=== PATIENT | male | born 1960 | race Caucasian/White ===

== ENCOUNTER 2019-05-10 17:23 | Outpatient (CLI) | payer OTHER, SELFPAY ==
--- NOTE | ~2019-05-10 | XR_ITS ---
EXAMINATION: XR abdomen/kub 1V DATE: 05/10/2019 17:40 INDICATION: Ureteral stone. TECHNIQUE: A supine view of the abdomen on 2 radiographs was obtained. COMPARISON: CT abdomen and pelvis 07/11/2018, abdomen radiographs 07/11/2018 FINDINGS: There are no dilated loops of bowel. There is a 2 mm calcification in the area of right ure terovesicular junction. IMPRESSION: 1. 2 mm calcification in the area of right ureterovesicular junction that may be a phlebolith or ston e. Reviewed, dictated and finalized at location A. IMPRESSION: 1. 2 mm calcification in the area of right ureterovesicular junction that may b e a phlebolith or stone.
== END 2019-05-10 17:24 | disposition home or self-care (01) ==
PROVIDERS: Visit Provider Urology
DX: N20.1 Calculus of ureter (principal)
CPT/HCPCS: 74018

== ENCOUNTER 2019-05-17 15:37 | Outpatient (CLI) | payer OTHER, SELFPAY ==
[2019-05-17 16:03] LABS: Basophils Absolute Auto 0.1 K/mm3 (0.0-0.1); Basophils Percent Auto 0.9 % (0.2-1.2); Eosinophils Absolute Auto 0.2 K/mm3 (0-0.3); Eosinophils Percent Auto 2.2 % (0-4.4); Hematocrit 44.3 % (42.0-52.0); Immature Granulocyte Absolute 0.01 K/mm3 (0.00-0.031); Immature Granulocyte Percent A 0.1 % (0-0.5); Lymphocytes Absolute Auto 3.07 K/mm3 (0.9-3.2); Lymphocytes Percent Auto 44.1 % (18.3-44.2); Mean Corpuscular HGB Conc 33.9 g/dl (32-36); Mean Corpuscular Volume 94.5 fl (80-100); Mean Platelet Volume 9.2 fl (7.4-10.4); Monocytes Absolute Auto 0.5 K/mm3 (0.1-0.6); Monocytes Percent Auto 7.5 % (2.6-8.5); Neutrophils Absolute Auto 3.2 K/mm3 (1.3-6.7); Neutrophils Percent Auto 45.2 % (45.5-73.1); Platelet Count Result 172 k/mm3 (150-375); Red Blood Count 4.69 M/mm3 (4.6-6.20); Red Cell Distribution Width 12.9 % (11.5-14.5)
[2019-05-17 16:26] LABS: Erythrocyte Sedimentation Rate 8 mm/hr (0-20)
[2019-05-17 16:32] LABS: Alanine Aminotransferase 28 U/L (4-50); Albumin Level 4.7 g/dL (3.5-5.1); Alkaline Phosphatase 71 U/L (38-126); Aspartate Amino Transferase 29 U/L (17-59); Bilirubin,Total 0.3 mg/dL (0.2-1.3); Blood Urea Nitrogen 15 mg/dL (9-20); CRP < 0.5 mg/dL (<1.0); Calcium 8.7 mg/dL (8.4-10.2); Carbon Dioxide 27 mmol/L (22-30); Chloride 102 mmol/L (98-107); Estimated Glomerular Filt Rate > 60; Glucose 82 mg/dL (75-110); Potassium 4.1 mmol/L (3.4-5.0); Sodium 139 mmol/L (137-145)
== END 2019-05-17 15:38 | disposition home or self-care (01) ==
DX: L40.50 Arthropathic psoriasis, unspecified (principal)
CPT/HCPCS: 36415; 80053; 85025; 85652; 86140

== ENCOUNTER 2019-08-09 06:51 | Outpatient (CLI) | payer OTHER, SELFPAY ==
[2019-08-09 07:49] LABS: Hematocrit 45.6 % (42.0-52.0); Hemoglobin 15.6 g/dL (14.0-18.0); Mean Corpuscular HGB Conc 34.2 g/dl (32-36); Mean Corpuscular Hemoglobin 32.8 pg (26-34); Mean Corpuscular Volume 95.8 fl (80-100); Mean Platelet Volume 9.6 fl (7.4-10.4); Platelet Count Result 163 k/mm3 (150-375); Red Blood Count 4.76 M/mm3 (4.6-6.20); Red Cell Distribution Width 12.8 % (11.5-14.5); White Blood Count 6.3 K/mm3 (4.5-10.0)
[2019-08-09 07:56] LABS: Add Urine Microscopic? NO; Appearance Urine Clear (Clear); Bilirubin Urine Negative (Negative); Blood Urine Negative (Negative); Color Urine Yellow (Yellow); Glucose Urine UA Negative (Negative); Ketones Urine Negative (Negative); Leukocyte Esterase Ur Negative LEU/UL (Negative); Nitrate Urine Negative (Negative); Protein Urine Negative (Negative); Specific Grav Ur 1.014 (1.001-1.035); Urobilinogen Urine Negative mg/dL (<2.0)
[2019-08-09 08:03] LABS: Alanine Aminotransferase 28 U/L (4-50); Albumin Level 4.3 g/dL (3.5-5.1); Alkaline Phosphatase 71 U/L (38-126); Aspartate Amino Transferase 24 U/L (17-59); Bilirubin,Total 0.2 mg/dL (0.2-1.3); Blood Urea Nitrogen 19 mg/dL (9-20); Carbon Dioxide 25 mmol/L (22-30); Chloride 110 mmol/L (98-107); Cholesterol 222 mg/dL (0-200); Estimated Glomerular Filt Rate > 60; Glucose 114 mg/dL (75-110); HDL Direct 39 mg/dL; Magnesium 1.9 mg/dL (1.6-2.3); Potassium 4.2 mmol/L (3.4-5.0); Sodium 140 mmol/L (137-145); Triglycerides 457 mg/dL (<150)
[2019-08-09 08:15] LABS: LDL Cholesterol Direct 108 mg/dL
[2019-08-09 08:22] LABS: Hemoglobin A1C 5.6 % (<5.7)
[2019-08-09 08:32] LABS: Erythrocyte Sedimentation Rate 5 mm/hr (0-20)
[2019-08-09 08:35] LABS: Prostate Specific Antigen 0.6 ng/mL (< OR = 4.0)
[2019-08-09 09:08] LABS: Vitamin D 25 Hydroxy 59.8 ng/mL
[2019-08-09 09:36] LABS: Folic Acid > 20.0 ng/mL (2.76->20)
[2019-08-12 14:30] LABS: CRP, High Sensitivity 1.3 mg/L (***)
== END 2019-08-09 06:52 | disposition home or self-care (01) ==
DX: R73.03 Prediabetes (principal); E78.5 Hyperlipidemia, unspecified; R53.83 Other fatigue; E53.8 Deficiency of other specified B group vitamins; Z12.5 Encounter for screening for malignant neoplasm of prostate
CPT/HCPCS: 36415; 80053; 80061; 81003; 82306; 82607; 82746; 83036; 83735; 84153; 84443; 85027; 85652; 86141; G0103

== ENCOUNTER 2019-10-18 09:40 | Outpatient (CLI) | payer OTHER, SELFPAY ==
[2019-10-18 10:45] LABS: Basophils Absolute Auto 0.1 K/mm3 (0.0-0.1); Basophils Percent Auto 1.4 % (0.2-1.2); Eosinophils Absolute Auto 0.2 K/mm3 (0-0.3); Eosinophils Percent Auto 3.1 % (0-4.4); Hematocrit 44.8 % (42.0-52.0); Hemoglobin 15.5 g/dL (14.0-18.0); Immature Granulocyte Absolute 0.05 K/mm3 (0.00-0.031); Immature Granulocyte Percent A 0.8 % (0-0.5); Lymphocytes Absolute Auto 2.79 K/mm3 (0.9-3.2); Lymphocytes Percent Auto 43.8 % (18.3-44.2); Mean Corpuscular HGB Conc 34.6 g/dl (32-36); Mean Corpuscular Volume 95.3 fl (80-100); Monocytes Absolute Auto 0.6 K/mm3 (0.1-0.6); Monocytes Percent Auto 8.9 % (2.6-8.5); Neutrophils Absolute Auto 2.7 K/mm3 (1.3-6.7); Platelet Count Result 185 k/mm3 (150-375); Red Cell Distribution Width 12.7 % (11.5-14.5); White Blood Count 6.4 K/mm3 (4.5-10.0)
[2019-10-18 11:09] LABS: LDL Cholesterol Direct 97 mg/dL
[2019-10-18 11:10] LABS: Alanine Aminotransferase 32 U/L (4-50); Albumin Level 4.6 g/dL (3.5-5.1); Alkaline Phosphatase 57 U/L (38-126); Anion Gap 7 mmol/L (8-16); Aspartate Amino Transferase 33 U/L (17-59); Bilirubin,Total 0.5 mg/dL (0.2-1.3); Blood Urea Nitrogen 22 mg/dL (9-20); CRP < 0.5 mg/dL (<1.0); Calcium 8.4 mg/dL (8.4-10.2); Carbon Dioxide 26 mmol/L (22-30); Chloride 107 mmol/L (98-107); Cholesterol 195 mg/dL (0-200); Estimated Glomerular Filt Rate > 60; Glucose 104 mg/dL (75-110); HDL Direct 46 mg/dL; Potassium 3.9 mmol/L (3.4-5.0); Sodium 140 mmol/L (137-145); Triglycerides 310 mg/dL (<150)
[2019-10-18 11:16] LABS: Erythrocyte Sedimentation Rate 2 mm/hr (0-20)
== END 2019-10-18 09:41 | disposition home or self-care (01) ==
LOC: ANHLAB 09:48
PROVIDERS: Internal Medicine Rheumatology
DX: L40.50 Arthropathic psoriasis, unspecified (principal)
CPT/HCPCS: 36415; 80053; 80061; 85025; 85652; 86140

== ENCOUNTER 2020-02-14 13:39 | Outpatient (CLI) | payer OTHER, SELFPAY ==
--- NOTE | ~2020-02-14 | XR_ITS ---
EXAMINATION: XR chest 2V DATE: 02/14/2020 14:03 INDICATION: Psoriatic arthritis TECHNIQUE: Frontal and lateral views of the chest are obtained COMPARISON: 11/11/2016 FINDINGS: The lungs are free of acute opacities. There is no pleural effusion or pneumothorax. The ca rdiomediastinal silhouette is normal. There is moderate thoracic spondylosis. There are partially jackie ged changes of fusion at the cervicothoracic junction. IMPRESSION: 1. No acute cardiopulmonary abnormality. Reviewed, dictated and finalized at location A. [employer]
== END 2020-02-14 13:40 | disposition home or self-care (01) ==
DX: L40.50 Arthropathic psoriasis, unspecified (principal); Z79.899 Other long term (current) drug therapy
CPT/HCPCS: 71046

== ENCOUNTER 2020-04-29 10:24 | Outpatient (CLI) | payer OTHER, SELFPAY ==
[2020-04-29 10:52] LABS: Hematocrit 47.3 % (42.0-52.0); Hemoglobin 16.2 g/dL (14.0-18.0); Mean Corpuscular HGB Conc 34.2 g/dl (32-36); Mean Corpuscular Hemoglobin 32.9 pg (26-34); Mean Corpuscular Volume 96.1 fl (80-100); Mean Platelet Volume 9.4 fl (7.4-10.4); Platelet Count Result 170 k/mm3 (150-375); Red Blood Count 4.92 M/mm3 (4.6-6.20); Red Cell Distribution Width 12.4 % (11.5-14.5); White Blood Count 5.6 K/mm3 (4.5-10.0)
[2020-04-29 10:55] LABS: Add Urine Microscopic? NO; Appearance Urine Clear (Clear); Bilirubin Urine Negative (Negative); Blood Urine Negative (Negative); Color Urine Yellow (Yellow); Glucose Urine UA Negative (Negative); Ketones Urine Negative (Negative); Leukocyte Esterase Ur Negative LEU/UL (Negative); Nitrate Urine Negative (Negative); Protein Urine Negative (Negative); Specific Grav Ur 1.009 (1.001-1.035); Urobilinogen Urine Negative mg/dL (<2.0)
[2020-04-29 11:01] LABS: Hemoglobin A1C 5.2 % (<5.7)
[2020-04-29 11:04] LABS: Alanine Aminotransferase 30 U/L (4-50); Albumin Level 4.4 g/dL (3.5-5.1); Alkaline Phosphatase 62 U/L (38-126); Anion Gap 5 mmol/L (8-16); Aspartate Amino Transferase 29 U/L (17-59); Bilirubin,Total 0.6 mg/dL (0.2-1.3); Blood Urea Nitrogen 16 mg/dL (9-20); Calcium 9.2 mg/dL (8.4-10.2); Carbon Dioxide 30 mmol/L (22-30); Chloride 107 mmol/L (98-107); Cholesterol 193 mg/dL (0-200); Estimated Glomerular Filt Rate > 60; Glucose 114 mg/dL (75-110); HDL Direct 55 mg/dL; Potassium 4.2 mmol/L (3.4-5.0); Sodium 142 mmol/L (137-145); Triglycerides 138 mg/dL (<150); Uric Acid 4.2 mg/dL (3.5-8.5)
[2020-04-29 11:15] LABS: LDL Cholesterol Direct 105 mg/dL
[2020-04-29 12:13] LABS: Folic Acid > 20.0 ng/mL (2.76->20)
[2020-05-04 22:31] LABS: CRP, High Sensitivity 0.5 mg/L (***)
== END 2020-04-29 10:25 | disposition home or self-care (01) ==
LOC: ANHLAB 10:27
DX: E78.5 Hyperlipidemia, unspecified (principal); R53.83 Other fatigue; R73.03 Prediabetes; E53.8 Deficiency of other specified B group vitamins
CPT/HCPCS: 36415; 80053; 80061; 81003; 82306; 82607; 82746; 83036; 84443; 84550; 85027; 86141

== ENCOUNTER → 2020-05-20 04:22 | Outpatient (CLI) | payer OTHER, SELFPAY ==
[2020-05-20 19:03] LABS: SARS-CoV-2 RNA PCR Negative
== END ==
PROVIDERS: Visit Provider Internal Medicine Critical Care Medicine
DX: R68.89 Other general symptoms and signs (principal); Z20.822 Contact with and (suspected) exposure to COVID-19
CPT/HCPCS: C9803; U0003; U0005

== ENCOUNTER 2020-05-22 08:59 | Outpatient (CLI) | payer OTHER, SELFPAY ==
--- NOTE | 2020-06-09 11:06 | WPDSLEEPSTUD ---
Sleep Study Date of Study: 05/22/20 Ordering Provider: Dr. Alex Chavez Interpreting Physician: Brenda Swann MD Sleep Study Type: Split Polysomnogram Height: 1.8 m Weight: 104.326 kg Body Mass Index: 32.1 Neck Circumference (inches): 18 [place]: 13 Reason for Sleep Study Obstructive sleep apnea Sleep History Pablo Sawant is a 59-year-old man with fatigue, lack of energy and a history of obstructive sleep apnea. He is not using CPAP currently. He decided he wants to be tested because he wants to start using it again. He has erectile dysfunction, obesity, anxiety, depression, headache, cervical spine fracture with a recent diagnosis of psoriatic arthritis, and was started on treatment with Humira, meloxicam and methotrexate. He has had absolute fatigue for the past 2 years. He has difficulty falling asleep, he wakes throughout the night and he has excessive daytime sleepiness. His sister also has difficulty sleeping throughout the night. He had a sleep study in 2004 and was placed on CPAP. He does not awaken from sleep feeling short of breath. He occasionally awakens at night with heartburn belching or coughing. He frequently snores and is frequently loud enough that others complain about it. He occasionally has trouble sleeping the cold. He does not wake up gasping for breath at night. He frequently has breathing problems at night observed by others. He rarely sweats excessively at night. He does not notice his heart pounding or beating irregularly at night. He rarely falls asleep in the day, rarely involuntarily, never while driving. He does not have loss of muscle tone was strong emotion. 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 He does not feel paralyzed on waking or falling asleep. He occasionally has vivid dreamlike scenes upon awakening or falling asleep. He does not feel afraid to go to sleep. He occasionally has nightmares. He frequently remembers his dreams. He constantly has racing thoughts. He frequently feels sad depressed and anxious. He frequently has muscular tension. He frequently notices parts of his body jerking. He occasionally kicks at night, frequently has crawling and aching feelings in his legs. He occasionally has leg pain at night. He does not have morning jaw pain. He does not grind his teeth during sleep. He frequently is bothered by pain during the day, is awakened by pain at night, wakes up feeling stiff in the morning with sore achy muscles and pain in the neck and spine. He has headaches, dizziness, memory problems and concentration difficulties as well as insomnia. He has decreased libido and has had issues with erectile dysfunction. He has sinus drainage when is lies flat to sleep. he also has a history of heartburn with hiatal hernia. He has not had a weight change in the last 12 months. His overall assessment of his health is poor. His usual bedtime is between 9:10 p.m. taking 15 minutes to fall asleep waking every 2 hours at night for about 10 minutes. While awake he gets a drink or has something to eat. He wakes the morning at 5:00 a.m.. On the weekends, he retires between 1 and 2:00 a.m., wakes at 5:00 a.m.. He estimates 6 hours of sleep at night although he gets less on the weekends. He does not work split shifts but he does take call and this may interrupt sleep. He may take a nap in the afternoon or evening. A short nap may be refreshing. He is usually drowsy in the morning. He feels better in the morning compared other times of day. Habits: Never smoked tobacco. Caffeine 1 cup of coffee a day. Rare alcohol. No recreational drugs. [facility] Past Medical History Medical History (Updated 06/09/20 @ 11:50 by Brenda Swann MD) Anxiety and depression Erectile dysfunction Gastroesophageal reflux disease History of spinal fracture C4 through C6 1977 football injury Kidney stones Migraine headache Obstructive sleep a
[2020-06-09 11:54] VITALS: BMI 32.1
== END 2020-05-22 09:00 | disposition home or self-care (01) ==
LOC: ANHCSM 08:59
DX: G47.30 Sleep apnea, unspecified (principal)
CPT/HCPCS: 95811

== ENCOUNTER 2020-06-08 09:06 | Outpatient (CLI) | payer OTHER, SELFPAY ==
--- NOTE | ~2020-06-08 | MR_ITS ---
EXAMINATION: MR foot LT wo con DATE: 06/08/2020 11:08 INDICATION: Left mid foot pain. TECHNIQUE: Magnetic resonance imaging (MRI) of the left foot was performed without intravenous contra st. Sequences included sagittal T1-weighted FSE and STIR FSE, long-axis PD-weighted FS FSE and PD-naveen ghted FSE, and short-axis PD-weighted FS FSE and T1-weighted FSE. COMPARISON: None FINDINGS: There is an oblique fracture of diaphysis of fifth metatarsal. The distal fracture fragment demonstrates 9 degrees medial angulation. There is periosteal new bone formation. There is a 10 x 4 x 12 mm fluid collection with heterogeneous signal intensity medial to the fracture, consistent with hematoma. There is edema of the soft tissues around the fracture. There is mild osteoarthritis of fir st metatarsophalangeal joint. Lisfranc ligament is intact. The flexor and extensor tendons are normal . IMPRESSION: 1. Healing oblique fracture of diaphysis of fifth metatarsal. Reviewed, dictated and finalized at location A.
--- NOTE | ~2020-06-08 | XR_ITS ---
XR foot RT min 3V 06/08/2020 09:57 Indication: Psoriatic arthritis Procedure: 4 views right foot Comparison: 10/07/2016 Findings: There is moderate osteoarthritis of the first metatarsal phalangeal joint in the third dist al interphalangeal joint. There is mild polyarticular osteoarthritis in the remainder of the interpha langeal joints. No erosive changes. No focal soft tissue abnormality. There is a small ossicle of the distal Achilles tendon. No foreign bodies. Lisfranc joint intact. Impression: 1: Mild-moderate polyarticular osteoarthritis. Reviewed, dictated and finalized at location A. Impression: 1: Mild-moderate polyarticular osteoarthritis.
--- NOTE | ~2020-06-08 | XR_ITS ---
XR hand BI arthritis min 3V 06/08/2020 09:57 Indication: Psoriatic arthritis Procedure: 4 views of each hand Comparison: 10/07/2016 Findings: There is loss of joint space at the first right MCP and IP joints as well as the second, th ird and fifth distal interphalangeal joints. There are erosive changes at the second, third and fifth distal interphalangeal joints. The metacarpophalangeal joints are within normal limits. No acute fra cture or traumatic malalignment. There is advanced mixed erosive and productive disease of the second, third and fifth distal interpha langeal joints and to a lesser degree the first interphalangeal joint. There is joint space narrowing of the fourth distal interphalangeal joint. The MCP joints are spared. Normal mineralization. Impression: 1: Advanced mixed erosive and productive disease bilaterally, primarily involving the distal interpha langeal joints, consistent with psoriatic arthritis. Reviewed, dictated and finalized at location A. Impression: 1: Advanced mixed erosive and productive disease bilaterally, primarily involvi ng the distal interphalangeal joints, consistent with psoriatic arthritis.
== END 2020-06-08 09:07 | disposition home or self-care (01) ==
PROVIDERS: Visit Provider Podiatrist Foot & Ankle Surgery
DX: M19.041 Primary osteoarthritis, right hand (principal); M19.042 Primary osteoarthritis, left hand; M19.071 Primary osteoarthritis, right ankle and foot; S92.352A Displaced fracture of fifth metatarsal bone, left foot, initial encounter for closed fracture; X58.XXXA Exposure to other specified factors, initial encounter
CPT/HCPCS: 73130; 73630; 73718

== ENCOUNTER 2020-06-11 17:43 | Outpatient (CLI) | payer OTHER, SELFPAY ==
[2020-06-11 18:01] LABS: Basophils Absolute Auto 0.1 K/mm3 (0.0-0.1); Basophils Percent Auto 0.9 % (0.2-1.2); Eosinophils Absolute Auto 0.1 K/mm3 (0-0.3); Eosinophils Percent Auto 1.6 % (0-4.4); Hematocrit 43.9 % (42.0-52.0); Hemoglobin 15.1 g/dL (14.0-18.0); Immature Granulocyte Absolute 0.03 K/mm3 (0.00-0.031); Immature Granulocyte Percent A 0.4 % (0-0.5); Lymphocytes Absolute Auto 3.44 K/mm3 (0.9-3.2); Lymphocytes Percent Auto 45.9 % (18.3-44.2); Mean Corpuscular HGB Conc 34.4 g/dl (32-36); Mean Corpuscular Hemoglobin 32.3 pg (26-34); Mean Corpuscular Volume 93.8 fl (80-100); Monocytes Absolute Auto 0.5 K/mm3 (0.1-0.6); Monocytes Percent Auto 6.7 % (2.6-8.5); Neutrophils Absolute Auto 3.3 K/mm3 (1.3-6.7); Neutrophils Percent Auto 44.5 % (45.5-73.1); Platelet Count Result 173 k/mm3 (150-375); Red Blood Count 4.68 M/mm3 (4.6-6.20); Red Cell Distribution Width 12.1 % (11.5-14.5); White Blood Count 7.5 K/mm3 (4.5-10.0)
[2020-06-11 18:15] LABS: Alanine Aminotransferase 34 U/L (4-50); Albumin Level 4.7 g/dL (3.5-5.1); Alkaline Phosphatase 61 U/L (38-126); Anion Gap 4 mmol/L (8-16); Aspartate Amino Transferase 34 U/L (17-59); Bilirubin,Total 0.3 mg/dL (0.2-1.3); Blood Urea Nitrogen 19 mg/dL (9-20); CRP < 0.5 mg/dL (<1.0); Calcium 8.6 mg/dL (8.4-10.2); Carbon Dioxide 32 mmol/L (22-30); Chloride 105 mmol/L (98-107); Estimated Glomerular Filt Rate > 60; Glucose 89 mg/dL (75-110); Magnesium 1.9 mg/dL (1.6-2.3); Phosphorus 3.7 mg/dL (2.5-4.5); Potassium 3.9 mmol/L (3.4-5.0); Sodium 141 mmol/L (137-145)
[2020-06-11 18:45] LABS: Erythrocyte Sedimentation Rate 4 mm/hr (0-20)
== END 2020-06-11 17:44 | disposition home or self-care (01) ==
DX: L40.50 Arthropathic psoriasis, unspecified (principal); Z79.899 Other long term (current) drug therapy
CPT/HCPCS: 36415; 80053; 83735; 84100; 85025; 85652; 86140

== ENCOUNTER 2020-08-14 06:45 | Outpatient (CLI) | payer OTHER, SELFPAY ==
[2020-08-14 07:29] LABS: Hematocrit 44.8 % (42.0-52.0); Hemoglobin 15.1 g/dL (14.0-18.0); Mean Corpuscular HGB Conc 33.7 g/dl (32-36); Mean Corpuscular Hemoglobin 32.2 pg (26-34); Mean Corpuscular Volume 95.5 fl (80-100); Mean Platelet Volume 9.4 fl (7.4-10.4); Platelet Count Result 156 k/mm3 (150-375); Red Blood Count 4.69 M/mm3 (4.6-6.20); Red Cell Distribution Width 12.6 % (11.5-14.5); White Blood Count 5.4 K/mm3 (4.5-10.0)
[2020-08-14 07:34] LABS: Add Urine Microscopic? NO; Appearance Urine Clear (Clear); Bilirubin Urine Negative (Negative); Blood Urine Negative (Negative); Color Urine Yellow (Yellow); Glucose Urine UA Negative (Negative); Ketones Urine Negative (Negative); Leukocyte Esterase Ur Negative LEU/UL (NEGATIVE); Nitrate Urine Negative (Negative); Protein Urine Negative (Negative); Specific Grav Ur 1.017 (1.001-1.035); Urobilinogen Urine Negative mg/dL (<2.0)
[2020-08-14 07:36] LABS: Alanine Aminotransferase 25 U/L (4-50); Albumin Level 4.3 g/dL (3.5-5.1); Alkaline Phosphatase 52 U/L (38-126); Anion Gap 8 mmol/L (8-16); Aspartate Amino Transferase 27 U/L (17-59); Bilirubin,Total 0.3 mg/dL (0.2-1.3); Blood Urea Nitrogen 15 mg/dL (9-20); Calcium 8.5 mg/dL (8.4-10.2); Carbon Dioxide 27 mmol/L (22-30); Chloride 106 mmol/L (98-107); Cholesterol 198 mg/dL (0-200); Estimated Glomerular Filt Rate > 60; Glucose 116 mg/dL (75-110); HDL Direct 50 mg/dL; Sodium 141 mmol/L (137-145); Triglycerides 120 mg/dL (<150); Uric Acid 4.1 mg/dL (3.5-8.5)
[2020-08-14 07:47] LABS: LDL Cholesterol Direct 102 mg/dL
[2020-08-14 08:09] LABS: Vitamin D 25 Hydroxy 34.5 ng/mL
[2020-08-14 11:18] LABS: Hemoglobin A1C 5.5 % (<5.7)
[2020-08-14 11:31] LABS: Folic Acid > 20.0 ng/mL (2.76->20)
[2020-08-16 20:37] LABS: CRP, High Sensitivity 0.6 mg/L (***)
== END 2020-08-14 06:46 | disposition home or self-care (01) ==
LOC: ANHLAB 06:48
DX: E78.5 Hyperlipidemia, unspecified (principal); N40.1 Benign prostatic hyperplasia with lower urinary tract symptoms; R53.83 Other fatigue; E53.8 Deficiency of other specified B group vitamins
CPT/HCPCS: 36415; 80053; 80061; 81003; 82306; 82607; 82746; 83036; 84443; 84550; 85027; 86141

== ENCOUNTER 2020-10-24 11:36 | Outpatient (CLI) | payer OTHER, SELFPAY ==
[2020-10-24 15:50] LABS: Basophils Absolute Auto 0.1 K/mm3 (0.0-0.1); Basophils Percent Auto 0.9 % (0.2-1.2); Eosinophils Absolute Auto 0.1 K/mm3 (0-0.3); Eosinophils Percent Auto 1.2 % (0-4.4); Hemoglobin 16.4 g/dL (14.0-18.0); Immature Granulocyte Absolute 0.02 K/mm3 (0.00-0.031); Immature Granulocyte Percent A 0.3 % (0-0.5); Lymphocytes Absolute Auto 3.12 K/mm3 (0.9-3.2); Lymphocytes Percent Auto 41.9 % (18.3-44.2); Mean Corpuscular HGB Conc 34.2 g/dl (32-36); Mean Corpuscular Hemoglobin 32.5 pg (26-34); Mean Platelet Volume 9.4 fl (7.4-10.4); Monocytes Absolute Auto 0.6 K/mm3 (0.1-0.6); Monocytes Percent Auto 7.7 % (2.6-8.5); Neutrophils Absolute Auto 3.6 K/mm3 (1.3-6.7); Platelet Count Result 177 k/mm3 (150-375); Red Blood Count 5.05 M/mm3 (4.6-6.20); Red Cell Distribution Width 12.9 % (11.5-14.5); White Blood Count 7.4 K/mm3 (4.5-10.0)
[2020-10-24 16:34] LABS: Erythrocyte Sedimentation Rate 1 mm/hr (0-20)
[2020-10-24 16:35] LABS: Alanine Aminotransferase 31 U/L (4-50); Albumin Level 4.9 g/dL (3.5-5.1); Alkaline Phosphatase 69 U/L (38-126); Anion Gap 8 mmol/L (8-16); Aspartate Amino Transferase 31 U/L (17-59); Bilirubin,Total 0.6 mg/dL (0.2-1.3); Blood Urea Nitrogen 15 mg/dL (9-20); CRP < 0.5 mg/dL (<1.0); Carbon Dioxide 25 mmol/L (22-30); Chloride 104 mmol/L (98-107); Estimated Glomerular Filt Rate > 60; Glucose 93 mg/dL (65-110); Sodium 137 mmol/L (137-145)
== END 2020-10-24 11:37 | disposition home or self-care (01) ==
DX: L40.50 Arthropathic psoriasis, unspecified (principal); Z51.81 Encounter for therapeutic drug level monitoring; Z79.899 Other long term (current) drug therapy
CPT/HCPCS: 36415; 80053; 85025; 85652; 86140

== ENCOUNTER 2020-11-06 15:05 | Outpatient (CLI) | payer OTHER, SELFPAY ==
--- NOTE | ~2020-11-06 | CT_ITS ---
EXAMINATION: CT brain wo con, CT cervical spine wo con EXAM DATE: 11/06/2020 15:28 INDICATION: History of fall, head injury, neck pain, dizziness, nausea . Blurred vision. TECHNIQUE: Spiral CT of the head was performed without contrast. Axial, coronal and sagittal images were reviewed. Spiral CT of the cervical spine was performed without contrast. Axial images were rev iewed. Coronal and sagittal reformatted images were also reviewed. The dose-length product (DLP) fo r this examination was 605.33 (accession [id number]), 485.22 (accession [id number]) mGy-cm. The exposure was tailored according to patient size, and iterative reconstruction (ASIR) was used as additional dose reduction technique. There is no prior study for comparison. FINDINGS: HEAD CT: There is no acute intraparenchymal hemorrhage. No evidence of intraparenchymal brain mass lesion. No evidence of acute infarction. There is no mass effect or midline shift. There is no obstr uctive hydrocephalus suspected. There are no extra-axial collections. There are no acute calvarial fractures. The orbits are unremarkable. Soft tissue is unremarkable. The visualized sinuses and ma stoid air cells are well aerated. CERVICAL CT: Upper thoracic spine through T3 was imaged. There are no acute fractures identified. The odontoid process is intact. The lateral masses of C1 line up with C2. The vertebral bodies are alig jax in the AP dimension. There is anterior and interbody fusion C4-7. There is posterior fusion with supporting screws from C3 through T2. Fusion of mid and lower cervical facet joints. Overall mild to moderate cervical arthropathy. No significant central canal or neural foraminal stenosis. IMPRESSION: 1. No acute head or cervical findings. 2. Intact cervical thoracic fusion hardware. Reviewed, dictated and finalized at location B. IMPRESSION: 1. No acute head or cervical findings. 2. Intact cervical thoracic fusion hardware.
== END 2020-11-06 15:06 | disposition home or self-care (01) ==
LOC: ANHIMG 15:07
DX: M54.2 Cervicalgia (principal); R42 Dizziness and giddiness; R11.0 Nausea; Z98.1 Arthrodesis status
CPT/HCPCS: 70450; 72125

== ENCOUNTER 2021-01-26 17:37 | Outpatient (CLI) | payer OTHER, SELFPAY ==
[2021-01-26 18:04] LABS: Basophils Absolute Auto 0.1 K/mm3 (0.0-0.1); Basophils Percent Auto 0.8 % (0.2-1.2); Eosinophils Absolute Auto 0.1 K/mm3 (0-0.3); Eosinophils Percent Auto 1.6 % (0-4.4); Hematocrit 43.6 % (42.0-52.0); Hemoglobin 15.2 g/dL (14.0-18.0); Immature Granulocyte Absolute 0.04 K/mm3 (0.00-0.031); Immature Granulocyte Percent A 0.5 % (0-0.5); Mean Corpuscular HGB Conc 34.9 g/dl (32-36); Mean Corpuscular Hemoglobin 33.2 pg (26-34); Mean Corpuscular Volume 95.2 fl (80-100); Mean Platelet Volume 9.4 fl (7.4-10.4); Monocytes Absolute Auto 0.7 K/mm3 (0.1-0.6); Monocytes Percent Auto 8.4 % (2.6-8.5); Neutrophils Percent Auto 48.7 % (45.5-73.1); Platelet Count Result 181 k/mm3 (150-375); Red Blood Count 4.58 M/mm3 (4.6-6.20); Red Cell Distribution Width 12.7 % (11.5-14.5); White Blood Count 8.3 K/mm3 (4.5-10.0)
[2021-01-26 18:14] LABS: Alanine Aminotransferase 27 U/L (4-50); Albumin Level 4.5 g/dL (3.5-5.1); Alkaline Phosphatase 76 U/L (38-126); Anion Gap 10 mmol/L (8-16); Aspartate Amino Transferase 27 U/L (17-59); Bilirubin,Total 0.4 mg/dL (0.2-1.3); Blood Urea Nitrogen 16 mg/dL (9-20); Calcium 8.9 mg/dL (8.4-10.2); Carbon Dioxide 27 mmol/L (22-30); Chloride 103 mmol/L (98-107); Estimated Glomerular Filt Rate > 60; Glucose 97 mg/dL (65-110); Potassium 3.8 mmol/L (3.4-5.0); Sodium 140 mmol/L (137-145)
[2021-01-26 19:12] LABS: Erythrocyte Sedimentation Rate 5 mm/hr (0-20)
[2021-01-27 08:34] LABS: CRP < 0.5 mg/dL (<1.0)
== END 2021-01-26 17:38 | disposition home or self-care (01) ==
LOC: ANHLAB 17:42
DX: L40.50 Arthropathic psoriasis, unspecified (principal); Z79.899 Other long term (current) drug therapy
CPT/HCPCS: 36415; 80053; 85025; 85652; 86140

== ENCOUNTER 2021-09-21 06:43 | Outpatient (CLI) | payer OTHER, SELFPAY ==
[2021-09-21 08:19] LABS: Basophils Absolute Auto 0.1 K/mm3 (0.0-0.1); Basophils Percent Auto 1.3 % (0.2-1.2); Eosinophils Absolute Auto 0.1 K/mm3 (0-0.3); Eosinophils Percent Auto 2.1 % (0-4.4); Hematocrit 46.7 % (42.0-52.0); Hemoglobin 15.7 g/dL (14.0-18.0); Immature Granulocyte Absolute 0.02 K/mm3 (0.00-0.031); Immature Granulocyte Percent A 0.4 % (0-0.5); Lymphocytes Percent Auto 39.5 % (18.3-44.2); Mean Corpuscular HGB Conc 33.6 g/dl (32-36); Mean Corpuscular Hemoglobin 32.3 pg (26-34); Mean Corpuscular Volume 96.1 fl (80-100); Mean Platelet Volume 9.7 fl (7.4-10.4); Monocytes Absolute Auto 0.4 K/mm3 (0.1-0.6); Monocytes Percent Auto 7.9 % (2.6-8.5); Neutrophils Absolute Auto 2.6 K/mm3 (1.3-6.7); Neutrophils Percent Auto 48.8 % (45.5-73.1); Platelet Count Result 169 k/mm3 (150-375); Red Blood Count 4.86 M/mm3 (4.6-6.20); Red Cell Distribution Width 12.5 % (11.5-14.5); White Blood Count 5.3 K/mm3 (4.5-10.0)
[2021-09-21 08:25] LABS: Add Urine Microscopic? YES; Appearance Urine Clear (Clear); Bilirubin Urine Negative (Negative); Blood Urine Trace-lysed (Negative); Color Urine Yellow (Yellow); Glucose Urine UA Negative (Negative); Ketones Urine Negative (Negative); Leukocyte Esterase Ur Negative LEU/UL (Negative); Nitrate Urine Negative (Negative); Protein Urine Negative (Negative); Specific Grav Ur 1.015 (1.001-1.035); Urobilinogen Urine 0.2 mg/dL (<2.0); pH Urine 6.5 (5.0-9.0)
[2021-09-21 08:36] LABS: Mucus Urine Rare /lpf; RBC Urine 0-2 /hpf (0-2); Squamous Epithelial Cell Urine Rare /hpf (Few); WBC Urine 0-3 /hpf
[2021-09-21 08:43] LABS: Alanine Aminotransferase 24 U/L (6-50); Albumin Level 4.7 g/dL (3.5-5.1); Alkaline Phosphatase 60 U/L (38-126); Anion Gap 10 mmol/L (8-16); Aspartate Amino Transferase 29 U/L (17-59); Bilirubin,Total 0.5 mg/dL (0.2-1.3); Blood Urea Nitrogen 16 mg/dL (9-20); Calcium 8.8 mg/dL (8.4-10.2); Carbon Dioxide 27 mmol/L (22-30); Chloride 101 mmol/L (98-107); Cholesterol 230 mg/dL (0-200); Estimated Glomerular Filt Rate > 60; Glucose 120 mg/dL (65-110); HDL Direct 50 mg/dL; Potassium 4.1 mmol/L (3.4-5.0); Sodium 138 mmol/L (137-145); Triglycerides 255 mg/dL (<150); Uric Acid 5.5 mg/dL (3.5-8.5)
[2021-09-21 08:53] LABS: LDL Cholesterol Direct 128 mg/dL
[2021-09-21 08:55] LABS: Hemoglobin A1C 5.4 % (<5.7)
[2021-09-21 09:11] LABS: Prostate Specific Antigen 0.7 ng/mL (< OR = 4.0)
[2021-09-21 09:34] LABS: Erythrocyte Sedimentation Rate 3 mm/hr (0-20); Vitamin D 25 Hydroxy 63.1 ng/mL
[2021-09-21 09:48] LABS: Folic Acid > 20.0 ng/mL (2.76->20)
== END 2021-09-21 06:44 | disposition home or self-care (01) ==
DX: R73.03 Prediabetes (principal); E78.5 Hyperlipidemia, unspecified; M25.50 Pain in unspecified joint; R53.83 Other fatigue; Z12.5 Encounter for screening for malignant neoplasm of prostate; M19.90 Unspecified osteoarthritis, unspecified site
CPT/HCPCS: 36415; 80053; 80061; 81001; 82306; 82607; 82746; 83036; 83735; 84153; 84443; 84550; 85025; 85652

== ENCOUNTER 2022-03-26 09:48 | Outpatient (CLI) | payer OTHER, SELFPAY ==
[2022-03-26 10:25] LABS: Basophils Absolute Auto 0.1 K/mm3 (0.0-0.1); Basophils Percent Auto 1.3 % (0.2-1.2); Eosinophils Absolute Auto 0.2 K/mm3 (0-0.3); Eosinophils Percent Auto 3.9 % (0-4.4); Hematocrit 46.3 % (42.0-52.0); Hemoglobin 15.8 g/dL (14.0-18.0); Immature Granulocyte Absolute 0.02 K/mm3 (0.00-0.031); Immature Granulocyte Percent A 0.3 % (0-0.5); Lymphocytes Absolute Auto 2.62 K/mm3 (0.9-3.2); Lymphocytes Percent Auto 42.7 % (18.3-44.2); Mean Corpuscular HGB Conc 34.1 g/dl (32-36); Mean Corpuscular Volume 93.9 fl (80-100); Mean Platelet Volume 9.5 fl (7.4-10.4); Monocytes Absolute Auto 0.6 K/mm3 (0.1-0.6); Monocytes Percent Auto 9.9 % (2.6-8.5); Neutrophils Absolute Auto 2.6 K/mm3 (1.3-6.7); Neutrophils Percent Auto 41.9 % (45.5-73.1); Platelet Count Result 189 k/mm3 (150-375); Red Blood Count 4.93 M/mm3 (4.6-6.20); Red Cell Distribution Width 12.7 % (11.5-14.5); White Blood Count 6.1 K/mm3 (4.5-10.0)
[2022-03-26 10:26] LABS: Appearance Urine Slightly Cloudy (Clear); Bilirubin Urine Negative (Negative); Blood Urine Trace-intact (Negative); Color Urine Yellow (Yellow); Glucose Urine UA Negative (Negative); Ketones Urine Negative (Negative); Leukocyte Esterase Ur Negative LEU/UL (Negative); Nitrate Urine Negative (Negative); Protein Urine Negative (Negative); Urobilinogen Urine 0.2 mg/dL (<2.0)
[2022-03-26 10:31] LABS: Amorphous Sediment Urine Few; Mucus Urine Rare /lpf; WBC Urine 0-3 /hpf
[2022-03-26 10:37] LABS: Add Urine Microscopic? YES
[2022-03-26 10:39] LABS: Alanine Aminotransferase 30 U/L (6-50); Albumin Level 4.6 g/dL (3.5-5.1); Alkaline Phosphatase 71 U/L (38-126); Anion Gap 5 mmol/L (8-16); Aspartate Amino Transferase 28 U/L (17-59); Bilirubin,Total 0.5 mg/dL (0.2-1.3); Blood Urea Nitrogen 16 mg/dL (9-20); Calcium 8.9 mg/dL (8.4-10.2); Carbon Dioxide 30 mmol/L (22-30); Chloride 107 mmol/L (98-107); Cholesterol 288 mg/dL (0-200); Estimated Glomerular Filt Rate > 60; Glucose 107 mg/dL (65-110); HDL Direct 48 mg/dL; Potassium 3.9 mmol/L (3.4-5.0); Sodium 142 mmol/L (137-145); Triglycerides 267 mg/dL (<150)
[2022-03-26 10:50] LABS: LDL Cholesterol Direct 153 mg/dL
[2022-03-26 10:55] LABS: Hemoglobin A1C 5.4 % (<5.7)
[2022-03-26 11:05] LABS: Erythrocyte Sedimentation Rate 3 mm/hr (0-20)
[2022-03-26 11:12] LABS: Vitamin D 25 Hydroxy 43.5 ng/mL
== END 2022-03-26 09:49 | disposition home or self-care (01) ==
LOC: ANHLAB 09:50
PROVIDERS: Visit Provider Internal Medicine
DX: E55.9 Vitamin D deficiency, unspecified (principal); R53.83 Other fatigue; E78.5 Hyperlipidemia, unspecified; R73.03 Prediabetes
CPT/HCPCS: 36415; 80053; 80061; 81001; 82306; 83036; 84443; 85025; 85652

== ENCOUNTER 2022-09-01 06:33 | Outpatient (CLI) | payer OTHER, SELFPAY ==
[2022-09-01 07:20] LABS: Appearance Urine Clear (Clear); Bilirubin Urine Negative (Negative); Blood Urine Negative (Negative); Color Urine Yellow (Yellow); Glucose Urine UA Negative (Negative); Ketones Urine Negative (Negative); Leukocyte Esterase Ur Negative LEU/UL (Negative); Nitrate Urine Negative (Negative); Protein Urine Negative (Negative); Specific Grav Ur 1.014 (1.001-1.035); Urobilinogen Urine 0.2 mg/dL (<2.0); pH Urine 6.5 (5.0-9.0)
[2022-09-01 07:30] LABS: Alanine Aminotransferase 26 U/L (6-50); Albumin Level 4.5 g/dL (3.5-5.1); Alkaline Phosphatase 66 U/L (38-126); Anion Gap 5 mmol/L (8-16); Aspartate Amino Transferase 29 U/L (17-59); Bilirubin,Total 0.5 mg/dL (0.2-1.3); Blood Urea Nitrogen 17 mg/dL (9-20); Calcium 8.7 mg/dL (8.4-10.2); Carbon Dioxide 32 mmol/L (22-30); Chloride 103 mmol/L (98-107); Cholesterol 237 mg/dL (0-200); Estimated Glomerular Filt Rate > 60; Glucose 124 mg/dL (65-110); HDL Direct 47 mg/dL; Potassium 3.8 mmol/L (3.4-5.0); Sodium 140 mmol/L (137-145); Triglycerides 185 mg/dL (<150)
[2022-09-01 07:39] LABS: Basophils Absolute Auto 0.1 K/mm3 (0.0-0.1); Basophils Percent Auto 1.4 % (0.2-1.2); Eosinophils Absolute Auto 0.2 K/mm3 (0-0.3); Eosinophils Percent Auto 4.3 % (0-4.4); Hemoglobin 15.2 g/dL (14.0-18.0); Immature Granulocyte Absolute 0.02 K/mm3 (0.00-0.031); Immature Granulocyte Percent A 0.4 % (0-0.5); Lymphocytes Absolute Auto 2.29 K/mm3 (0.9-3.2); Mean Corpuscular HGB Conc 33.8 g/dl (32-36); Mean Corpuscular Hemoglobin 32.9 pg (26-34); Mean Corpuscular Volume 97.4 fl (80-100); Mean Platelet Volume 9.8 fl (7.4-10.4); Monocytes Absolute Auto 0.4 K/mm3 (0.1-0.6); Monocytes Percent Auto 8.6 % (2.6-8.5); Neutrophils Absolute Auto 2.1 K/mm3 (1.3-6.7); Neutrophils Percent Auto 40.3 % (45.5-73.1); Platelet Count Result 177 k/mm3 (150-375); Red Blood Count 4.62 M/mm3 (4.6-6.20); Red Cell Distribution Width 12.7 % (11.5-14.5); White Blood Count 5.1 K/mm3 (4.5-10.0)
[2022-09-01 07:41] LABS: LDL Cholesterol Direct 137 mg/dL
[2022-09-01 07:52] LABS: Hemoglobin A1C 5.4 % (<5.7)
[2022-09-01 08:04] LABS: Add Urine Microscopic? NO
[2022-09-01 08:35] LABS: Folic Acid > 20.0 ng/mL (2.76->20)
[2022-09-03 18:39] LABS: CRP, High Sensitivity >10.0 mg/L (***)
== END 2022-09-01 06:34 | disposition home or self-care (01) ==
DX: R73.03 Prediabetes (principal); R53.83 Other fatigue; E78.5 Hyperlipidemia, unspecified
CPT/HCPCS: 36415; 80053; 80061; 81003; 82607; 82746; 83036; 84443; 85025; 86141

== ENCOUNTER 2023-03-10 06:46 | Outpatient (CLI) | payer OTHER, SELFPAY ==
[2023-03-10 07:51] LABS: Basophils Absolute Auto 0.1 K/mm3 (0.0-0.1); Basophils Percent Auto 1.3 % (0.2-1.2); Eosinophils Absolute Auto 0.2 K/mm3 (0-0.3); Eosinophils Percent Auto 3.6 % (0-4.4); Hematocrit 45.7 % (42.0-52.0); Hemoglobin 15.5 g/dL (14.0-18.0); Immature Granulocyte Absolute 0.02 K/mm3 (0.00-0.031); Immature Granulocyte Percent A 0.4 % (0-0.5); Lymphocytes Percent Auto 48.3 % (18.3-44.2); Mean Corpuscular HGB Conc 33.9 g/dl (32-36); Mean Corpuscular Hemoglobin 32.6 pg (26-34); Mean Platelet Volume 9.8 fl (7.4-10.4); Monocytes Absolute Auto 0.4 K/mm3 (0.1-0.6); Monocytes Percent Auto 7.2 % (2.6-8.5); Neutrophils Absolute Auto 2.2 K/mm3 (1.3-6.7); Neutrophils Percent Auto 39.2 % (45.5-73.1); Platelet Count Result 208 k/mm3 (150-375); Red Blood Count 4.76 M/mm3 (4.6-6.20); Red Cell Distribution Width 12.5 % (11.5-14.5); White Blood Count 5.6 K/mm3 (4.5-10.0)
[2023-03-10 08:18] LABS: Alanine Aminotransferase 33 U/L (6-50); Albumin Level 4.4 g/dL (3.5-5.1); Alkaline Phosphatase 58 U/L (38-126); Anion Gap 7 mmol/L (8-16); Aspartate Amino Transferase 34 U/L (17-59); Bilirubin,Total 0.9 mg/dL (0.2-1.3); Blood Urea Nitrogen 15 mg/dL (9-20); Calcium 8.6 mg/dL (8.4-10.2); Carbon Dioxide 29 mmol/L (22-30); Chloride 103 mmol/L (98-107); Cholesterol 230 mg/dL (0-200); Estimated Glomerular Filt Rate > 60; Glucose 124 mg/dL (65-110); HDL Direct 39 mg/dL; Potassium 4.3 mmol/L (3.4-5.0); Sodium 139 mmol/L (137-145); Triglycerides 383 mg/dL (<150); Uric Acid 4.4 mg/dL (3.5-8.5)
[2023-03-10 08:28] LABS: LDL Cholesterol Direct 115 mg/dL
[2023-03-10 08:32] LABS: Erythrocyte Sedimentation Rate 6 mm/hr (0-20)
[2023-03-10 08:46] LABS: Hemoglobin A1C 5.8 % (<5.7)
[2023-03-10 09:09] LABS: Prostate Specific Antigen 0.7 ng/mL (< OR = 4.0)
[2023-03-10 11:46] LABS: Appearance Urine Clear (Clear); Bilirubin Urine Negative (Negative); Blood Urine Negative (Negative); Color Urine Yellow (Yellow); Glucose Urine UA Negative (Negative); Ketones Urine Negative (Negative); Leukocyte Esterase Ur Negative LEU/UL (Negative); Nitrate Urine Negative (Negative); Protein Urine Negative (Negative); Specific Grav Ur 1.013 (1.001-1.035); Urobilinogen Urine 0.2 mg/dL (<2.0)
[2023-03-10 11:55] LABS: Add Urine Microscopic? NO
== END 2023-03-10 06:47 | disposition home or self-care (01) ==
DX: R73.03 Prediabetes (principal); E78.5 Hyperlipidemia, unspecified; M25.50 Pain in unspecified joint; R53.83 Other fatigue; Z12.5 Encounter for screening for malignant neoplasm of prostate; E55.9 Vitamin D deficiency, unspecified
CPT/HCPCS: 36415; 80053; 80061; 81003; 82306; 83036; 84153; 84443; 84550; 85025; 85652; G0103

== ENCOUNTER 2023-06-13 15:11 | Outpatient (CLI) | payer OTHER, SELFPAY ==
[2023-06-13 16:25] LABS: Hematocrit 45.7 % (42.0-52.0); Hemoglobin 15.6 g/dL (14.0-18.0); Mean Corpuscular HGB Conc 34.1 g/dl (32-36); Mean Corpuscular Hemoglobin 32.2 pg (26-34); Mean Corpuscular Volume 94.4 fl (80-100); Mean Platelet Volume 10.1 fl (7.4-10.4); Platelet Count Result 175 k/mm3 (150-375); Red Blood Count 4.84 M/mm3 (4.6-6.20); Red Cell Distribution Width 12.5 % (11.5-14.5)
[2023-06-13 16:58] LABS: Alanine Aminotransferase 24 U/L (6-50); Albumin Level 4.8 g/dL (3.5-5.1); Alkaline Phosphatase 65 U/L (38-126); Anion Gap 9 mmol/L (4-12); Aspartate Amino Transferase 29 U/L (17-59); Bilirubin,Total 0.5 mg/dL (0.2-1.3); Blood Urea Nitrogen 17 mg/dL (9-20); Calcium 9.3 mg/dL (8.4-10.2); Carbon Dioxide 28 mmol/L (22-30); Chloride 103 mmol/L (98-107); Estimated Glomerular Filt Rate > 60; Glucose 94 mg/dL (65-110); Potassium 3.7 mmol/L (3.4-5.0); Sodium 140 mmol/L (137-145)
[2023-06-13 17:34] LABS: Erythrocyte Sedimentation Rate 3 mm/hr (0-20)
== END 2023-06-13 15:12 | disposition home or self-care (01) ==
DX: L40.59 Other psoriatic arthropathy (principal); Z79.899 Other long term (current) drug therapy
CPT/HCPCS: 36415; 80053; 85027; 85652

== ENCOUNTER 2023-09-09 09:29 | Outpatient (CLI) | payer OTHER, SELFPAY ==
[2023-09-09 10:09] LABS: Basophils Absolute Auto 0.1 K/mm3 (0.0-0.1); Basophils Percent Auto 1.1 % (0.2-1.2); Eosinophils Absolute Auto 0.1 K/mm3 (0-0.3); Eosinophils Percent Auto 1.3 % (0-4.4); Hematocrit 45.4 % (42.0-52.0); Hemoglobin 15.6 g/dL (14.0-18.0); Immature Granulocyte Absolute 0.02 K/mm3 (0.00-0.031); Immature Granulocyte Percent A 0.3 % (0-0.5); Lymphocytes Absolute Auto 1.93 K/mm3 (0.9-3.2); Lymphocytes Percent Auto 30.8 % (18.3-44.2); Mean Corpuscular HGB Conc 34.4 g/dl (32-36); Mean Corpuscular Hemoglobin 32.4 pg (26-34); Mean Corpuscular Volume 94.2 fl (80-100); Mean Platelet Volume 9.4 fl (7.4-10.4); Monocytes Absolute Auto 0.4 K/mm3 (0.1-0.6); Monocytes Percent Auto 6.2 % (2.6-8.5); Neutrophils Absolute Auto 3.8 K/mm3 (1.3-6.7); Neutrophils Percent Auto 60.3 % (45.5-73.1); Platelet Count Result 172 k/mm3 (150-375); Red Blood Count 4.82 M/mm3 (4.6-6.20); Red Cell Distribution Width 12.5 % (11.5-14.5); White Blood Count 6.3 K/mm3 (4.5-10.0)
[2023-09-09 10:27] LABS: Alanine Aminotransferase 23 U/L (6-50); Albumin Level 4.6 g/dL (3.5-5.1); Alkaline Phosphatase 67 U/L (38-126); Anion Gap 10 mmol/L (4-12); Aspartate Amino Transferase 24 U/L (17-59); Bilirubin,Total 0.5 mg/dL (0.2-1.3); Blood Urea Nitrogen 22 mg/dL (9-20); Calcium 8.7 mg/dL (8.4-10.2); Carbon Dioxide 29 mmol/L (22-30); Chloride 101 mmol/L (98-107); Cholesterol 222 mg/dL (0-200); Estimated Glomerular Filt Rate > 60; Glucose 108 mg/dL (65-110); HDL Direct 52 mg/dL; Magnesium 1.8 mg/dL (1.6-2.3); Potassium 4.2 mmol/L (3.4-5.0); Sodium 140 mmol/L (137-145); Triglycerides 114 mg/dL (<150)
[2023-09-09 10:33] LABS: Iron 115 ug/dL (49-181)
[2023-09-09 10:43] LABS: Hemoglobin A1C 5.8 % (<5.7); LDL Cholesterol Direct 131 mg/dL
[2023-09-09 10:48] LABS: Percent Iron Saturation 31 % (20-50)
[2023-09-09 11:32] LABS: Folic Acid > 20.0 ng/mL (2.76->20)
[2023-09-09 11:42] LABS: Erythrocyte Sedimentation Rate 8 mm/hr (0-20)
[2023-09-09 14:26] LABS: Vitamin D 25 Hydroxy 61.5 ng/mL
[2023-09-12 11:48] LABS: CRP, High Sensitivity 2.1 mg/L
== END 2023-09-09 09:30 | disposition home or self-care (01) ==
DX: R73.03 Prediabetes (principal); E78.5 Hyperlipidemia, unspecified; E55.9 Vitamin D deficiency, unspecified; E53.8 Deficiency of other specified B group vitamins; D50.9 Iron deficiency anemia, unspecified; L40.50 Arthropathic psoriasis, unspecified
CPT/HCPCS: 36415; 80053; 80061; 82306; 82607; 82728; 82746; 83036; 83540; 83550; 83735; 84443; 85025; 85652; 86141

== ENCOUNTER 2023-11-21 11:50 | Outpatient (RCR) | payer OTHER, SELFPAY ==
[2023-11-21 12:25] LABS: Hematocrit 46.9 % (42.0-52.0); Hemoglobin 15.9 g/dL (14.0-18.0); Mean Corpuscular HGB Conc 33.9 g/dl (32-36); Mean Corpuscular Hemoglobin 32.4 pg (26-34); Mean Corpuscular Volume 95.5 fl (80-100); Mean Platelet Volume 9.4 fl (7.4-10.4); Platelet Count Result 184 k/mm3 (150-375); Red Blood Count 4.91 M/mm3 (4.6-6.20); Red Cell Distribution Width 12.8 % (11.5-14.5); White Blood Count 7.2 K/mm3 (4.5-10.0)
[2023-11-21 12:36] LABS: Alanine Aminotransferase 25 U/L (6-50); Albumin Level 4.7 g/dL (3.5-5.1); Alkaline Phosphatase 74 U/L (38-126); Anion Gap 9 mmol/L (4-12); Aspartate Amino Transferase 28 U/L (17-59); Bilirubin,Total 0.8 mg/dL (0.2-1.3); Blood Urea Nitrogen 16 mg/dL (9-20); Calcium 9.3 mg/dL (8.4-10.2); Carbon Dioxide 31 mmol/L (22-30); Chloride 102 mmol/L (98-107); Estimated Glomerular Filt Rate > 60; Glucose 102 mg/dL (65-110); Sodium 142 mmol/L (137-145)
[2023-11-21 13:57] LABS: Erythrocyte Sedimentation Rate 17 mm/hr (0-20)
== END 2024-02-19 23:59 | disposition home or self-care (01) ==
LOC: ANHLAB 11:50
DX: Z51.81 Encounter for therapeutic drug level monitoring (principal); L40.59 Other psoriatic arthropathy; Z79.899 Other long term (current) drug therapy
CPT/HCPCS: 36415; 80053; 85027; 85652

== ENCOUNTER 2024-04-06 08:54 | Outpatient (CLI) | payer OTHER, SELFPAY ==
--- OUTSIDE RECORDS SUMMARY | 2024-04-06 09:25 | XMS_ITS | Patient Health Summary ---
Author Organization [facility] [employer] Address [address] [place] [address] Care Team Providers Care Correction Officer Supervisor Name Role Phone Alex Chavez MD Primary Care Provider [phone] Note from [facility],non-owned Affiliates and Associated Physician Practices is amultiple site organization consisting of ambulatory clinics and hospital sitesin [place], [place], [place] and [place]. This disclosure is being madepursuant to the Care Everywhere program and may not contain all information available regarding this patient. Last updated 17.[facility] [employer] Allergies No known active allergies Medications * Be aware that medications may not be up to date on this document. Alwaysverify current medications with the patient. * pantoprazole EC (PROTONIX) 40 MG tablet Take 40 mg by mouth 2 times daily. * vilazodone (VIIBRYD) 40 MG tablet Take 40 mg by mouth daily with breakfast. * topiramate (TOPAMAX) 100 MG tablet Take 100 mg by mouth 2 times daily. * B Dwhhbmr-Suwivp-YN (SUPER B-COMPLEX) CAPS Take by mouth once daily. * diazepam (VALIUM) 5 MG tablet(Started 04/28/2012) Take 1 Tab by mouth 3 times daily as needed for Spasms. * rosuvastatin (CRESTOR) 10 MG tablet 1 Tab once daily. * Nerve Stimulator (EMJOI TENS) TIMOTHY(Started 07/12/2012) Use 1 Device as needed. * albuterol HFA (PROVENTIL;VENTOLIN;PROAIR) 108 (90 BASE) MCG/ACT inhaler (Started 03/13/2017) Inhale 2 puffs by mouth every 4 hours as needed Active Problems Problem Noted Date Diagnosed Date GERD (gastroesophageal reflux disease) 3 JASON (obstructive sleep apnea) 04/26/2012 Depression 04/26/2012 Migraine 04/26/2012 Brachial plexopathy 04/26/2012 Cervical spine arthritis 04/26/2012 Social History Tobacco Use Types Packs/Day Years Used Date Smoking Tobacco: Never Smokeless Tobacco: Never Alcohol Use Standard Drinks/Week Comments Yes 0 (1 standard drink = 0.6 oz pur e alcohol) rarely Sex and Gender Information Value Date Recorded Sex Assigned at Not on file Gender Identity Not on file Sexual Orientation Not on file Last Filed Vital Signs Vital Sign Reading Time Taken Comments Blood Pressure 139/90 07/12/2012 10:01 AM CDT Pulse 90 07/12/2012 10:01 AM CDT Temperature 36.9 C (98.5 F) 04/28/2012 11:37 AM CDT Respiratory Rate 14 04/28/2012 11:37 AM CDT Oxygen Saturation 99% 04/28/2012 11:37 AM CDT Inhaled Oxygen Concentration - - Weight 99.8 kg (220 lb) 07/12/2012 10:01 AM CDT Height 182.9 cm (6') 07/12/2012 10:01 AM CDT Body Mass Index 29.84 07/12/2012 10:01 AM CDT Medical Devices Implanted Type Area Lactation Consultant Device Identifier Shelf Expiration Date Model / Serial / Lot Screw Implanted:Qty: 2 on 04/25/2012 by Remington Ortiz MD at [facility] N/A: Back [employer] [id number] / / Screws Implanted:Qty: 4 on 04/25/2012 by Remington Ortiz MD at [facility] Neck [employer] [id number] / / Screw Implanted:Qty: 1 on 04/25/2012 at [facility] [employer] [id number] / / Screws Implanted:Qty: 2 on 04/25/2012 by Remington Ortiz MD at [facility] [employer] [id number] / / Praneeth Implanted:Qty: 1 on 04/25/2012 by Remington Ortiz MD at [facility] N/A: Neck [employer] [id number] / / Set Screws Implanted:Qty: 10 on 04/25/2012 by Remington Ortiz MD at [facility] N/A: Neck [id number] / / Putty Brady-3 Dbm 10cc Implanted:Qty: 1 on 04/25/2012 at [facility] [employer] 01/14/[id number] 0 / / [id number] Description:in or record to add lot#, TB Peek Implanted:Qty: 1 on 04/25/2012 by Remington Ortiz MD at [facility] N/A: Neck [employer] [id number] / / [id number] Peek Implanted:Qty: 1 on 04/25/2012 at [facility] [employer] [id number] / / [id number] Peek Implanted:Qty: 1 on 04/25/2012 by Remington Ortiz MD at [facility] [employer] [id number] / / [id number] Screws Implanted:Qty: 8 on 04/25/2012 by Remington Ortiz MD at [facility] [employer] [id number] / / Plate Implanted:Qty: 1 on 04/25/2012 by Remington Ortiz MD at [facility] [employer] [id number] 06 / / Screws Implanted:Qty: 2 on 04/25/2012 at [facility] [employer] [id number]. [id number] / / Screws Implanted:Qty: 1 on 04/25/2012 by Remington Ortiz MD at [facility] [employer] [id number] / / Procedures * FERRITIN(Performed 12/31/2012) Performed for Anemia * HEMOGLOBIN A1C(Performed 12/31/2012) Performed for Impaired Fasting Glucose * IRON + TRANSFERRIN PANEL(Performed 12/31/2012) Performed for Anemia * TSH(Performed 12/31/2012) Performed for Anemia * LIPID PROFILE(Performed 12/31/2012) Performed for Mixed hyperlipidemia * COMPREHENSIVE METABOLIC PANEL(Performed 12/31/2012) Performed for Anemia * CBC W/O DIFFERENTIAL(Performed 12/31/2012) Performed for Anemia * XR CERVICAL SPINE 2 OR 3VW(Performed 10/11/2012) Performed for Cervical kyphosis * VITAMIN D 25-HYDROXY(Performed 08/15/2012) Performed for Vitamin D Deficiency * URIC ACID BLOOD(Performed 08/15/2012) Performed for Joint pain * HEMOGLOBIN A1C(Performed 08/15/2012) Performed for Prediabetes * VITAMIN B12 FOLATE PANEL(Performed 08/15/2012) Performed for Vitamin B12 deficiency * ERYTHROCYTE SEDIMENTATION RATE(Performed 08/15/2012) Performed for Joint pain * CK BLOOD(Performed 08/15/2012) Performed for Anxiety State, Unspecified * TSH(Performed 08/15/2012) Performed for Fatigue * LIPID PROFILE(Performed 08/15/2012) Performed for Dyslipidemia * COMPREHENSIVE METABOLIC PANEL(Performed 08/15/2012) Performed for Anxiety State, Unspecified * CBC W AUTO DIFFERENTIAL(Performed 08/15/2012) Performed for Anxiety State, Unspecified * XR CERVICAL SPINE 2 OR 3VW(Performed 07/12/2012) Performed for S/P cervical spinal fusion * XR CERVICAL SPINE 2 OR 3VW(Performed 05/22/2012) Performed for S/P cervical spinal fusion * XR CERVICAL SPINE 2 OR 3VW(Performed 05/03/2012) Performed for S/P cervical spinal fusion * CARDIAC RHYTHM STRIP ORDER(Performed 05/01/2012) * APHERESIS/TRANSFUSION ORDER(Performed 05/01/2012) * CBC W AUTO DIFFERENTIAL(Performed 04/28/2012) * CT CERVICAL SPINE WO CONTRAST(Performed 04/27/2012) Performed for Brachial plexopathy * PHOSPHORUS BLOOD(Performed 04/26/2012) * MAGNESIUM BLOOD(Performed 04/26/2012) * BASIC METABOLIC PANEL (CALCIUM TOTAL)(Performed 04/26/2012) * CBC W AUTO DIFFERENTIAL(Performed 04/26/2012) * EKG 12-LEAD(Performed 04/26/2012) Performed for Neck pain * OT EVAL AND TREAT(Performed 04/26/2012) * XR CHEST 1VW PORTABLE(Performed 04/25/2012) Performed for Neck pain * PHOSPHORUS BLOOD(Performed 04/25/2012) * MAGNESIUM BLOOD(Performed 04/25/2012) * COMPREHENSIVE METABOLIC PANEL(Performed 04/25/2012) * PT PTT PANEL(Performed 04/25/2012) * CBC W AUTO DIFFERENTIAL(Performed 04/25/2012) * CULTURE MRSA(Performed 04/25/2012) * FL YADIRA SURGERY 60 MIN PLUS(Performed 04/25/2012) Performed for Neck pain * XR CERVICAL SPINE 2 OR 3VW(Performed 04/25/2012) Performed for Neck pain * URINALYSIS REFLEX MICROSCOPIC REFLEX CULTURE(Performed 04/25/2012) * BLOOD GASES ARTERIAL(Performed 04/25/2012) * XR CHEST 1VW PORTABLE(Performed 04/25/2012) Performed for Neck pain * BLOOD GASES ARTERIAL(Performed 04/25/2012) * BLOOD GASES ART + LYTES GLU CA+ HH (ISTAT)(Performed 04/25/2012) * DIFFERENTIAL MANUAL(Performed 04/25/2012) * CBC W AUTO DIFFERENTIAL(Performed 04/25/2012) * BLOOD TYPE VERIFICATION(Performed 04/25/2012) * DISCECTOMY WITH FUSION ANTERIOR CERVICAL (ACDF) MICROSCOPIC(Performed 04/25/2012) Performed for Cervical spondylosis without myelopathy * FUSION POSTERIOR CERVICAL (PCF)(Performed 04/25/2012) Performed for Cervical spondylosis without myelopathy * CROSSMATCH RBC LEUKOREDUCED(Performed 04/25/2012) * CROSSMATCH RBC LEUKOREDUCED(Performed 04/25/2012) * CROSSMATCH RBC LEUKOREDUCED(Performed 04/25/2012) * ANTIBODY SCREEN(Performed 04/25/2012) * BLOOD TYPE ABO+ RH PANEL(Performed 04/25/2012) * CROSSMATCH RBC LEUKOREDUCED(Performed 04/25/2012) * EKG 12-LEAD(Performed 04/16/2012) Performed for Pre-op testing * LAB RESULTS ORDER(Performed 04/16/2012) * XR CHEST 2VW(Performed 04/16/2012) Performed for Pre-op testing * RAD OUTSIDE IMG IMPORT(Performed 02/24/2012) Performed for Pain * CT CERVICAL SPINE WO CONTRAST(Performed 02/23/2012) Performed for Neck pain * XR CERVICAL SPINE 4 OR 5VW(Performed 02/23/2012) Performed for Neck pain * MRI CERVICAL SPINE WO CONTRAST(Performed 01/28/2012) * MRI CERVICAL SPINE WO CONTRAST(Performed 01/25/2012) * GROSS + MICRO EXAM(Performed 12/06/2011) * CYTOLOGY NON-GANDY DANCER PANEL(Performed 11/27/2009) * CYTOLOGY NON-GANDY DANCER PANEL(Performed 11/27/2009) * GROSS + MICRO EXAM(Performed 08/25/2005) Results * (ABNORMAL) HEMOGLOBIN A1C (12/31/2012 8:23 AM [facility]) Only the most recent of2 resultswithin the time period is included. Pathologist [facility] Hemoglobin A1c 5.9(H) 4.2 - 5.8 % 12/31/2012 8:42 PM [facility] Estimated Average Glucose 123 mg/dL 12/31/2012 8:42 PM [facility] Whole Blood BLOOD SPECIMEN / Unknown Lab Venipuncture / Unknown 12/31/2012 8:23 AM [facility] 12/31/2012 8:26 AM [facility] - 12/31/2012 8:42 PM [facility] HgbA1c Test Information: The [place] [employer] recommends a HGB A1C of < 7% and that physicians reevaluate the treatment regiment of patients with HGB A1C values consistently >8%. Alex Chavez MD LAB - CHEMISTRY ORD ERABLES Performing Organization Address City/State/[facility] Co de Phone Number [facility] [address] * (ABNORMAL) CBC W/O DIFFERENTIAL (12/31/2012 8:23 AM [facility]) Pathologist [facility] WBC 7.8 4.0 - 10.0 x10^9/L 12/31/2012 8:31 AM [facility] RBC 5.24 4.40 - 6.10 x10^12/L 12/31/2012 8:31 AM [facility] Hemoglobin 14.3 13.7 - 17.5 gm/dL 12/31/2012 8:31 AM [facility] Hematocrit 42.8 40.1 - 51.0 % 12/31/2012 8:31 AM [facility] MCV 81.7 78.0 - 100.0 fl 12/31/2012 8:31 AM [facility] MCH 27.3 25.6 - 34.0 pg 12/31/2012 8:31 AM [facility] MCHC 33.4 32.3 - 36.5 gm/dL 12/31/2012 8:31 AM [facility] RDW 15.1(H) 11.6 - 14.4 % 12/31/2012 8:31 AM [facility] MPV 8.9(L) 9.4 - 12.4 fl 12/31/2012 8:31 AM [facility] Platelet Count 184 163 - 369 x10^9/L 12/31/2012 8:31 AM [facility] Blood BLOOD SPECIMEN / Unknown Lab Venipuncture / Unknown 12/31/2012 8:23 AM [facility] 12/31/2012 8:26 AM [facility] Alex Chavez MD LAB - HEMATOLOGY OR DERABLES Performing Organization Address City/State/[facility] Co de Phone Number [facility] [address] * (ABNORMAL) COMPREHENSIVE METABOLIC PANEL (12/31/2012 8:23 AM [facility]) Only the most recent of3 resultswithin the time period is included. Glucose 112 70 - 125 mg/dL 12/31/2012 8:54 AM [facility] Sodium 144 136 - 145 mmol/L 12/31/2012 8:54 AM [facility] Potassium 3.4 3.4 - 4.5 mmol/L 12/31/2012 8:54 AM [facility] Chloride 114(H) 98 - 107 mmol/L 12/31/2012 8:54 AM [facility] CO2 21(L) 22 - 29 mmol/L 12/31/2012 8:54 AM [facility] Calcium 9.0 8.4 - 10.2 mg/dL 12/31/2012 8:54 AM [facility] Anion Gap 12 10 - 20 mmol/L 12/31/2012 8:54 AM [facility] BUN 12 8.4 - 25.7 mg/dL 12/31/2012 8:54 AM [facility] Creatinine 0.82 0.72 - 1.25 mg/dL 12/31/2012 8:54 AM [facility] eGFR by MDRD >60 >60 mL/min/1.7 3m2 12/31/2012 8:54 AM [facility] eGFR by MDRD >60 >60 mL/min/1.7 3m2 12/31/2012 8:54 AM [facility] Alkaline Phosphatase 76 40 - 150 U/L 12/31/2012 8:54 AM [facility] ALT 17 5 - 55 U/L 12/31/2012 8:54 AM [facility] AST 17 5 - 34 U/L 12/31/2012 8:54 AM [facility] Protein Total 6.9 6.4 - 8.3 gm/dL 12/31/2012 8:54 AM [facility] Albumin 4.1 3.5 - 5.0 gm/dL 12/31/2012 8:54 AM [facility] Globulin Total 2.8 2.6 - 4.0 gm/dL 12/31/2012 8:54 AM [facility] Albumin/Globulin Ratio 1.5 0.9 - 1.6 12/31/2012 8:54 AM [facility] Bilirubin Total 0.4 0.2 - 1.2 mg/dL 12/31/2012 8:54 AM [facility] Blood BLOOD SPECIMEN / Unknown Lab Venipuncture / Unknown 12/31/2012 8:23 AM [facility] 12/31/2012 8:26 AM [facility] Alex Chavez MD LAB - CHEMISTRY ORD ERABLES [facility] [address] * TSH (12/31/2012 8:23 AM [facility]) Only the most recent of2 resultswithin the time period is included. Pathologist [facility] TSH 1.265 0.35 - 4.94 uIU/mL 12/31/2012 9:15 AM [facility] Blood BLOOD SPECIMEN / Unknown Lab Venipuncture / Unknown 12/31/2012 8:23 AM [facility] 12/31/2012 8:26 AM [facility] Alex Chavez MD LAB - CHEMISTRY ORD ERABLES [facility] [address] * (ABNORMAL) IRON + TRANSFERRIN PANEL (12/31/2012 8:23 AM [facility]) Pathologist [facility] Iron 39(L) 65 - 175 ug/dL 12/31/2012 8:54 AM [facility] Transferrin 339 174 - 364 mg/dL 12/31/2012 8:54 AM [facility] TIBC Calculated 424 261 - 497 mg/dL 12/31/2012 8:54 AM [facility] Iron Saturation % 9(L) 11 - 45 % 12/31/2012 8:54 AM [facility] Blood BLOOD SPECIMEN / Unknown Lab Venipuncture / Unknown 12/31/2012 8:23 AM [facility] 12/31/2012 8:26 AM [facility] Alex Chavez MD LAB - CHEMISTRY ORD ERABLES Performing Organization Address City/[facility]/ZIP Co de Phone Number [facility] [address] * (ABNORMAL) FERRITIN (12/31/2012 8:23 AM [facility]) [facility] Ferritin 11(L) 22 - 275 ng/mL 01/01/2013 4:11 PM [facility] Blood BLOOD SPECIMEN / Unknown 12/31/2012 8:23 AM [facility] 12/31/2012 8:26 AM [facility] Alex Chavez MD LAB - CHEMISTRY ORD ERABLES Performing Organization Address City/[facility] Co de Phone Number [facility] [address] [place] [address] * LIPID PROFILE (12/31/2012 8:23 AM [facility]) Only the most recent of2 resultswithin the time period is included. [facility] Cholesterol 189 <200 mg/dL 12/31/2012 8:54 AM [facility] Triglycerides 65 <150 mg/dL 12/31/2012 8:54 AM [facility] HDL Cholesterol 50 >40 mg/dL 3 8:54 AM [facility] Chol HDL Ratio 3.8 1.0 - 6.0 12/31/2012 8:54 AM [facility] LDL Calculated 126 65 - 130 mg/dL 12/31/2012 8:54 AM [facility] VLDL Calculated 13 10 - 40 mg/dL 12/31/2012 8:54 AM [facility] Blood BLOOD SPECIMEN / Unknown Lab Venipuncture / Unknown 12/31/2012 8:23 AM [facility] 12/31/2012 8:26 AM [facility] Narrative [facility] - 12/31/2012 8:54 AM [facility] Lipid Profile Comment: CHOLESTEROL LEVEL..................CLINICAL INTERPRETATION LESS THAN 200 MG/DL..............................DESIRABLE 200-239 MG/DL..............................BORDERLINE HIGH GREATER THAN 240 MG/DL................................HIGH LDL-CHOLESTEROL LEVEL..............CLINICAL INTERPRETATION LESS THAN 100 MG/DL................................OPTIMAL 100-129 MG/DL.................................NEAR OPTIMAL GREATER THAN 160 MG/DL...........................HIGH RISK HDL RISK LEVEL GREATER THEN 60 MG/DL............................DECREASED 40-60 MG/DL........................................AVERAGE LESS THAN 40 MG/DL...............................INCREASED TRIGLYCERIDE LEVEL..................CLINICAL INTERPRETATION LESS THAN 150 MG/DL...............................DESIRABLE 150-199 MG/DL...............................BORDERLINE HIGH 200-499 MG/DL..........................................HIGH GREATER THAN 500..................................VERY HIGH THE NATIONAL CHOLESTEROL EDUCATION PROGRAM HAS SET THE ABOVE GUIDELINES (REFERANCE VALUES) FOR CHOLESTEROL AND HDL. RISK ASSOCIATED WITH CHOLESTEROL/HDL RATIOS RISK....................MALE RATIO.............FEMALE RATIO 1/2 AVERAGE.................<3.4.......................<3.3 LOW RISK.................... 4.0 ...................... 3.8 AVERAGE..................... 5.0 ...................... 4.5 2X AVERAGE.................. 9.5 ...................... 7.0 3X AVERAGE...................>23........................>11 Alex Chavez MD LAB - CHEMISTRY ORD ERABLES [facility] [address] [place] [address], [facility] * XR CERVICAL SPINE 2 OR 3 VW (10/11/2012 3:22 PM CDT) Only the most recent of5 resultswithin the time period is included. Anatomical Region Laterality Modality Spine Radiographic Alejandra ging 10/11/2012 3:35 PM CDT Narrative 10/11/2012 3:41 PM CDT Cervical Spine Two Views Indication: Neck pain, cervical spine pain. Findings: Two views of the cervical spine, compared to prior of July 12, 2012, redemonstrate anterior fusion of C4 through C7 with bony plate screws and intervertebral disc space devices at C4-5, C5-6 and C6-7. There is posterior fusion from C4 through T2. Bipedicle screws and osteometallic hardware are redemonstrated. There is no change in the position of the anterior metallic plate which is situated anterior to the C5 vertebral body cortex measuring approximately 5.4 mm. There is no acute fracture. Follow-up exam should be performed as needed. Edited by Johanne Zapata on 10/11/2012 3:40 PM Procedure Note Orlando Sams MD - 10/11/2012 Cervical Spine Two Views Indication: Neck pain, cervical spine pain. Findings: Two views of the cervical spine, compared to prior of July 12, 2012, redemonstrate anterior fusion of C4 through C7 with bony plate screws and intervertebral disc space devices at C4-5, C5-6 and C6-7. There is posterior fusion from C4 through T2. Bipedicle screws and osteometallic hardware are redemonstrated. There is no change in the position of the anterior metallic plate which is situated anterior to the C5 vertebral body cortex measuring approximately 5.4 mm. There is no acute fracture. Follow-up exam should be performed as needed. Edited by Johanne Zapata on 10/11/2012 3:40 PM Remington Ortiz MD DIAGNOSTIC IMAGING O RDERABLES * URIC ACID BLOOD (08/15/2012 7:52 AM CDT) Uric Acid 5.6 3.5 - 7.2 mg/dL 08/15/2012 9:12 AM CDT [facility] Blood specimen (specimen) BLOOD SPECIMEN / Unknown Lab Venipuncture / Unknown 08/15/2012 7:52 AM CDT 08/15/2012 7:55 AM CDT Alex Chavez MD LAB - CHEMISTRY ORD ERABLES Performing Organization Address [facility] Co de Phone Number [facility] [address] [place] [address] * (ABNORMAL) VITAMIN D 25-HYDROXY (08/15/2012 7:52 AM CDT) Pathologist [facility] Vitamin D, 25 Hydroxy 20.9(L) 30 - 60 ng/mL 08/15/2012 9:47 AM CDT [facility] Blood specimen (specimen) BLOOD SPECIMEN / Unknown Lab Venipuncture / Unknown 08/15/2012 7:52 AM CDT 08/15/2012 7:55 AM CDT Alex Chavez MD LAB - CHEMISTRY ORD ERABLES Performing Organization Address [facility] Co de Phone Number [facility] [address] [place] [address] * SED RATE WESTERGREN (08/15/2012 7:52 AM CDT) [facility] Erythrocyte Sedimentation Rate Westergren 9 0 - 20 mm/hr 08/15/2012 9:55 AM CDT [facility] Blood specimen (specimen) BLOOD SPECIMEN / Unknown Lab Venipuncture / Unknown 08/15/2012 7:52 AM CDT 08/15/2012 7:55 AM CDT Alex Chavez MD LAB - HEMATOLOGY OR DERABLES Performing Organization Address [facility] Co de Phone Number [facility] [address] [place] [address] * (ABNORMAL) CBC W AUTO DIFFERENTIAL (08/15/2012 7:52 AM CDT) Only the most recent of5 resultswithin the time period is included. Pathologist [facility] WBC 3.6(L) 4.0 - 10.0 x10^9/L 08/15/2012 8:30 AM CDT [facility] RBC 5.10 4.40 - 6.10 x10^12/L 08/15/2012 8:30 AM CDT [facility] Hemoglobin 11.2(L) 13.7 - 17.5 g/dL 08/15/2012 8:30 AM [facility] Hematocrit 37.0(L) 40.1 - 51.0 % 08/15/2012 8:30 AM [facility] MCV 72.5(L) 78.0 - 100.0 fl 08/15/2012 8:30 AM [facility] MCH 22.0(L) 25.6 - 34.0 pg 08/15/2012 8:30 AM [facility] MCHC 30.3(L) 32.3 - 36.5 gm/dL 08/15/2012 8:30 AM [facility] RDW 16.0(H) 11.6 - 14.4 % 08/15/2012 8:30 AM [facility] MPV 8.9(L) 9.4 - 12.4 fl 08/15/2012 8:30 AM [facility] Platelet Count 227 163 - 369 x10^9/L 08/15/2012 8:30 AM [facility] Neutrophils % 54 40 - 75 % 08/15/2012 8:30 AM [facility] Lymphocytes % 35 20 - 51 % 08/15/2012 8:30 AM [facility] Monocytes % 7 2 - 15 % 08/15/2012 8:30 AM [facility] Eosinophils % 1 0 - 5 % 08/15/2012 8:30 AM [facility] Basophils % 2 0 - 3 % 08/15/2012 8:30 AM [facility] Immature Granulocytes 0.3 0 - 0.5 % 08/15/2012 8:30 AM [facility] Neutrophil Absolute 1.95 1.56 - 6.13 x10^9/L 08/15/2012 8:30 AM [facility] Lymphocytes Absolute 1.27 1.18 - 3.74 x10^9/L 08/15/2012 8:30 AM [facility] Monocytes Absolute 0.25 0.24 - 0.86 x10^9/L 08/15/2012 8:30 AM [facility] Eosinophils Absolute 0.05 0 - 0.7 x10^9/L 08/15/2012 8:30 AM [facility] Basophils Absolute 0.07 0 - 0.2 x10^9/L 08/15/2012 8:30 AM [facility] Immature Granulocytes Absolute 0.01 0 - 0.03 x10^9/L 08/15/2012 8:30 AM CDT [facility] nRBC Auto 0 <1 08/15/2012 8:30 AM CDT [facility] nRBC Absolute 0.00 <=0 x10^9/L 08/15/2012 8:30 AM CDT [facility] Blood specimen (specimen) BLOOD SPECIMEN / Unknown Lab Venipuncture / Unknown 08/15/2012 7:52 AM CDT 08/15/2012 7:55 AM CDT lAex Chavez MD LAB - HEMATOLOGY OR DERABLES Performing Organization Address [facility] Co de Phone Number [facility] [address] [place] [address] * CK BLOOD (08/15/2012 7:52 AM CDT) CK 137 30 - 200 U/L 08/15/2012 9:12 AM CDT [facility] Blood specimen (specimen) BLOOD SPECIMEN / Unknown Lab Venipuncture / Unknown 08/15/2012 7:52 AM CDT 08/15/2012 7:55 AM CDT Alex Chavez MD LAB - CHEMISTRY ORD ERABLES Performing Organization Address [facility] Co de Phone Number [facility] [address] [place] [address] * VITAMIN B12 FOLATE PANEL (08/15/2012 7:52 AM CDT) Vitamin B12 537 213 - 816 pg/mL 08/15/2012 9:47 AM CDT [facility] Folate >20.0 7.0 - 31.4 ng/mL 08/15/2012 9:47 AM CDT [facility] Blood specimen (specimen) BLOOD SPECIMEN / Unknown Lab Venipuncture / Unknown 08/15/2012 7:52 AM CDT 08/15/2012 7:55 AM CDT Alex Chavez MD LAB - CHEMISTRY ORD ERABLES Performing Organization Address [facility] Co de Phone Number [facility] [address] [place] [address] * CARDIAC RHYTHM STRIP ORDER (05/01/2012 12:58 PM CDT) Narrative 05/01/2012 12:58 PM CDT Procedure Note Document, Scanned - 05/01/2012 12:58 PM CDT Scanned Document CARDIAC SERVICES ORD ERABLES * APHERESIS/TRANSFUSION ORDER (05/01/2012 12:58 PM CDT) Narrative 05/01/2012 12:58 PM CDT Procedure Note Document, Scanned - 05/01/2012 12:58 PM CDT Transcriptions Document, Scanned - 05/01/2012 12:58 PM CDT Scanned Document NURSING - VITAL SIGN S AND ASSESSMENT * CT CERVICAL SPINE NON CONTRAST (04/27/2012 9:58 AM CDT) Only the most recent of2 resultswithin the time period is included. Anatomical Region Laterality Modality Spine Computed Tomogra phy 04/27/2012 1:52 PM CDT Impressions 04/27/2012 2:11 PM CDT Spinal fusion without evidence of hardware failure or malalignment. I do not appreciate a hematoma or significant canal stenosis. Narrative 04/27/2012 2:[address] CERVICAL SPINE INDICATION: Neck pain TECHNIQUE: Axial images of cervical spine were obtained without contrast and reconstructions performed. FINDINGS: Prior is available from February 23, 2012. There has been interval spinal fusion anteriorly between C4 and C7 and posteriorly between C4 and T2. Surgical drains end in the surgical bed. No hardware failure or malalignment is seen. On these images, no significant canal stenosis is seen. I do not appreciate a hematoma. Procedure Note Rangel Boyer MD - 04/27/2012 CT CERVICAL SPINE INDICATION: Neck pain TECHNIQUE: Axial images of cervical spine were obtained without contrast and reconstructions performed. FINDINGS: Prior is available from February 23, 2012. There has been interval spinal fusion anteriorly between C4 and C7 and posteriorly between C4 and T2. Surgical drains end in the surgical bed. No hardware failure or malalignment is seen. On these images, no significant canal stenosis is seen. I do not appreciate a hematoma. IMPRESSION Spinal fusion without evidence of hardware failure or malalignment. I do not appreciate a hematoma or significant canal stenosis. Remington Ortiz MD CT ORDERABLES * (ABNORMAL) BASIC METABOLIC PANEL (CALCIUM TOTAL) (04/26/2012 6:43 AM CDT) Glucose 125(H) 74 - 106 mg/dL 04/26/2012 7:11 AM CDT [facility] Sodium 143 136 - 145 mmol/L 04/26/2012 7:11 AM CDT [facility] Potassium 3.7 3.5 - 5.1 mmol/L 04/26/2012 7:11 AM T [facility] Chloride 109(H) 98 - 107 mmol/L 04/26/2012 7:11 AM T [facility] CO2 26 22 - 31 mmol/L 04/26/2012 7:11 AM [facility] Calcium 6.8(LL) 8.5 - 10.1 mg/dL 04/26/2012 7:11 AM [facility] Anion Gap 8 5 - 15 mmol/L 04/26/2012 7:11 AM [facility] BUN 8 7 - 21 mg/dL 04/26/2012 7:11 AM T [facility] Creatinine 0.58 0.50 - 1.30 mg/dL 04/26/2012 7:11 AM T [facility] eGFR by MDRD >60 >60 ml/min/1.7 3m2 04/26/2012 7:11 AM [facility] eGFR by MDRD >60 >60 ml/min/1.7 3m2 04/26/2012 7:11 AM [facility] Blood specimen (specimen) BLOOD SPECIMEN / Unknown 04/26/2012 6:43 AM CDT 04/26/2012 6:50 AM CDT Narrative [facility] - 04/26/2012 7:11 AM CDT Slight hemolysis. Rolan Hines MD LAB - CHEMISTRY [facility]ITA [facility]ES[facility] Organization Address City/State/ZIP Co de Phone Number [facility] [address] [place] [address] * PHOSPHORUS BLOOD (04/26/2012 6:43 AM CDT) Only the most recent of2 resultswithin the time period is included. Phosphorus 2.9 2.5 - 4.9 mg/dL 04/26/2012 7:11 AM CDT [facility] Blood specimen (specimen) BLOOD SPECIMEN / Unknown 04/26/2012 6:43 AM CDT 04/26/2012 6:50 AM CDT Rolan Hines MD LAB - CHEMISTRY NENITA NESBITT Performing Organization Address [facility] de Phone Number [facility] [address] [place] [address] * MAGNESIUM BLOOD (04/26/2012 6:43 AM CDT) Only the most recent of2 resultswithin the time period is included. Magnesium 2.2 1.6 - 2.6 mg/dL 04/26/2012 7:11 AM CDT [facility] Blood specimen (specimen) BLOOD SPECIMEN / Unknown 04/26/2012 6:43 AM CDT 04/26/2012 6:50 AM CDT Rolan Hines MD LAB - CHEMISTRY [facility] Performing Organization Address [facility] de Phone Number [facility] [address] [place] [address] * EKG 12-LEAD STAT (04/26/2012 2:11 AM CDT) Only the most recent of2 resultswithin the time period is included. Ventricular Rate 96 BPM [facility] Atrial Rate 96 BPM [facility] P-R Interval 116 ms [facility] QRS Duration ms 88 ms [facility] Q-T Interval ms 358 ms [facility] QTC Calculation (Bezet) 452 ms [facility] MUSE Calculated P [place] 4 degrees [facility] MUSE Calculated R [place] 7 degrees [facility] MUSE Calculated T [place] 11 degrees [facility] MUSE Interpretation EKG Normal sinus rhythm Nonspecific T wave abnormality Abnormal ECG NO PREVIOUS TRACE Confirmed by MD LASHON, ENRIKE Flores ([id number]) on 04/26/2012 8:45:40 AM [facility] MUSE 04/26/2012 2:11 AM CDT 04/26/2012 8:45 AM CDT Narrative [facility] - 04/26/2012 8:46 AM CDT Procedure Note Document, Scanned - 04/26/2012 7:03 AM CDT Transcriptions Document, Scanned - 04/26/2012 8:46 AM CDT Rloan Hines MD ECG ORDERABLES [facility] * XR CHEST 1VW PORTABLE (04/25/2012 11:01 PM CDT) Only the most recent of2 resultswithin the time period is included. Anatomical Region Laterality Modality Chest Radiographic Alejandra ging 04/26/2012 7:41 AM CDT Impressions 04/26/2012 9:34 AM CDT Probable hypoventilatory changes in the right lower lobe, otherwise no major change since April 25, 2012. This examination uses the nonstandard portable technique. Narrative 04/26/2012 9:34 AM CDT PORTABLE AP CHEST INDICATION: Postop cervical surgery. NOCI. COMPARISON: April 25, 2012. FINDINGS: A single portable view of the chest shows the lungs to be less well expanded. Subtle area of increased markings is present in the right lower lobe. No pneumothorax can be seen. monitor car operator wires overlie the chest bilaterally partly obscuring detail. The heart size is normal.There are no pleural effusions. Procedure Note George Augustine MD - 04/26/2012 PORTABLE AP CHEST INDICATION: Postop cervical surgery. NOCI. COMPARISON: April 25, 2012. FINDINGS: A single portable view of the chest shows the lungs to be less well expanded. Subtle area of increased markings is present in the right lower lobe. No pneumothorax can be seen. monitor car operator wires overlie the chest bilaterally partly obscuring detail. The heart size is normal.There are no pleural effusions. IMPRESSION Probable hypoventilatory changes in the right lower lobe, otherwise no major change since April 25, 2012. This examination uses the nonstandard portable technique. Rolan Hines MD DIAGNOSTIC IMAGING O RDERABLES * (ABNORMAL) PT PTT PANEL (04/25/2012 10:54 PM CDT) PT 11.1 9.3 - 11.4 sec 04/25/2012 11:15 PM CDT [facility] INR 1.08 0.92 - 1.12 04/25/2012 11:15 PM CDT [facility] PTT <21.0(L) 23.0 - 34.0 sec 04/25/2012 11:15 PM CDT [facility] Blood specimen (specimen) BLOOD SPECIMEN / Unknown 04/25/2012 10:54 PM CDT 04/25/2012 11:02 PM CDT Narrative [facility] - 04/25/2012 11:15 PM CDT Conventional Anticoagulant Therapy INR Reference Ranges: 2.0-3.0 Intensive Anticoagulant Therapy INR Reference Ranges: 2.5-3.5 Rolan Hines MD LAB - COAGULATION OR DERABLES [facility] [address] [place] [address] * CULTURE MRSA (04/25/2012 10:00 PM CDT) Pathologist [facility] Culture Negative for MRSA 04/27/2012 8:25 AM CDT [facility] Miscellaneous samples (specimen) SPECIMEN FROM NASAL FOSSAE / Unknown 04/25/2012 10:00 PM CDT 04/25/2012 10:06 PM CDT Rolan Hines MD LAB - MICROBIOLOGY O RDERABLES [facility]CRO[facility] [address] [place] [address], [facility] * FL FLUORO>1HR SURG C-ARM (04/25/2012 9:33 PM CDT) Anatomical Region Laterality Modality Radiographic Alejandra ging 04/26/2012 9:18 AM CDT Narrative 04/26/2012 9:18 AM CDT FLUOROSCOPY: Less than 1 hour of fluoroscopy was utilized during a cervical spinal surgery. No radiologist was present. One minute 6 seconds fluoroscopy was provided. Procedure Note Giselle Richardson MD - 04/26/2012 FLUOROSCOPY: Less than 1 hour of fluoroscopy was utilized during a cervical spinal surgery. No radiologist was present. One minute 6 seconds fluoroscopy was provided. Remington Ortiz MD FLUOROSCOPY ORDERABL ES * URINALYSIS ROUTINE W/REFLEX TO CULTURE (04/25/2012 7:25 PM CDT) Color UA Yellow Straw, Yellow, Dark Yellow 04/25/2012 7:38 PM CDT [facility] Clarity UA Clear (none) 04/25/2012 7:38 PM CDT [facility] Specific [place] UA 1.013 1.005 - 1.030 04/25/2012 7:38 PM CDT [facility] pH UA 7.5 5.0 - 8.0 04/25/2012 7:38 PM CDT [facility] Protein UA Negative Negative 04/25/2012 7:38 PM CDT [facility] Blood UA Negative Negative 04/25/2012 7:38 PM CDT [facility] Leukocyte UA Negative Negative 04/25/2012 7:38 PM CDT [facility] Nitrite UA Negative Negative 04/25/2012 7:38 PM CDT [facility] Glucose UA Negative Negative 04/25/2012 7:38 PM CDT [facility] Ketone UA Negative Negative 04/25/2012 7:38 PM CDT [facility] Bilirubin UA Negative Negative 04/25/2012 7:38 PM CDT [facility] Urobilinogen UA 0.2 0.1 - 1.0 EU/dL 04/25/2012 7:38 PM CDT [facility] Reflex Status Culture not indicated (none) 04/25/2012 7:38 PM CDT [facility] Urine specimen (specimen) URINE SPECIMEN OBTAINED VIA INDWELLING URINARY CATHETER / Unknown 04/25/2012 7:25 PM CDT 04/25/2012 7:25 PM CDT Remington Ortiz MD LAB - URINALYSIS ORD ERABLES [facility] [address] [address] * (ABNORMAL) BLOOD GASES ARTERIAL (04/25/2012 5:58 PM [facility]) Only the most recent of2 resultswithin the time period is included. pH Arterial 7.35 7.35 - 7.45 pH 04/25/2012 6:05 PM [facility] pCO2 Arterial 37 35 - 45 mm hg 04/25/2012 6:05 PM [facility] pO2 Arterial 453(H) 80 - 100 mm hg 04/25/2012 6:05 PM [facility] HCO3 Arterial 20(L) 22 - 26 mmol/L 04/25/2012 6:05 PM [facility] BE Arterial -5.2(L) -2.0 - 2.0 mmol/L 04/25/2012 6:05 PM [facility] O2 Saturation Arterial 100 90 - 100 % 04/25/2012 6:05 PM [facility] Hemoglobin Arterial 10.9(L) 14.0 - 16.0 gm/dL 04/25/2012 6:05 PM [facility] Carboxyhemoglobin Arterial 0.2 0.0 - 2.5 % 04/25/2012 6:05 PM [facility] Methemoglobin Arterial 0.1 0.0 - 2.0 % 04/25/2012 6:05 PM [facility] Oxyhemoglobin Arterial 99 % 04/25/2012 6:05 PM [facility] O2 Content Arterial 16.5 md/dL 04/25 6:05 PM [facility] Mode CMV (none) 04/25/2012 6:05 PM [facility] Bang's Test N/A (none) 04/25/2012 6:05 PM [facility] FI O2 95 % 04/25/2012 6:05 PM [facility] Sample Site Art Line (none) 04/25/2012 6:05 PM [facility] Sample Type Arterial 04/25/2012 6:05 PM [facility] Eligibility Specialist ID Rober SILVA 04/25/2012 6:05 PM [facility] Blood specimen (specimen) ARTERIAL BLOOD SPECIMEN / Unknown 04/25/2012 5:58 PM CDT 04/25/2012 5:58 PM CDT Remington Ortiz MD LAB - BLOOD GASES OR DERABLES [facility] [address] [address] * (ABNORMAL) ISTAT CG8+ PANEL ART (04/25/2012 2:50 PM CDT) pH Arterial POCT 7.28(L) 7.35 - 7.45 pH 04/25/2012 2:55 PM CDT [facility] pCO2 Arterial 43.1(H) 32 - 43 mmHg 04/25/2012 2:55 PM CDT [facility] pO2 Arterial 254(H) 72 - 104 mmHg 04/25/2012 2:55 PM CDT [facility] HCO3 Arterial POCT 20.1(L) 22 - 26 mmol/L 04/25/2012 2:55 PM CDT [facility] BE Arterial -6(L) -2 - 2 mmol/L 04/25/2012 2:55 PM CDT [facility] TCO2 Arterial Calc POCT 21(L) 22 - 29 mmol/L 04/25/2012 2:55 PM CDT [facility] O2 Saturation Arterial 100 90 - 100 % 04/25/2012 2:55 PM CDT [facility] Sodium Arterial 141 136 - 145 mmol/L 04/25/2012 2:55 PM CDT [facility] Potassium Arterial 4.0 3.5 - 5.1 mmol/L 04/25/2012 2:55 PM CDT [facility] Calcium Ionized Arterial POCT 1.05(L) 1.12 - 1.32 mmol/L 04/25/2012 2:55 PM CDT [facility] Glucose Arterial POCT 143(H) 74 - 106 mg/dL 04/25/2012 2:55 PM CDT [facility] Hemoglobin Arterial POCT 8.8(L) 12.0 - 17.6 g/dL 04/25/2012 2:55 PM T [facility] Hematocrit Arterial POCT 26.0(L) 35.2 - 51.7 %PCV 04/25/2012 2:55 PM T [facility] Site Art Line 04/25/2012 2:55 PM CDT [facility] Sample iSTAT ARTERI 04/25/2012 2:55 PM T [facility] CPB iSTAT No 04/25/2012 2:55 PM CDT [facility] Blood specimen (specimen) ARTERIAL BLOOD SPECIMEN / Unknown 04/25/2012 2:50 PM CDT 04/25/2012 2:54 PM CDT Remington Ortiz MD LAB - POINT OF CARE ORDERABLES Performing Organization Address City/[facility]/ZIP Co de Phone Number [facility] [address] [place] [address] * (ABNORMAL) DIFFERENTIAL MANUAL (04/25/2012 12:56 PM CDT) WBC Auto 6.9 4.4 - 10.7 X(10)9/L 04/25/2012 1:57 PM CDT [facility] Neutrophil % Manual 78(H) 44 - 73 % 04/25/2012 1:57 PM CDT [facility] Lymphocytes % Manual 13(L) 20 - 43 % 04/25/2012 1:57 PM CDT [facility] Basophils % Manual 1 0 - 2 % 2012 1:57 PM CDT [facility] Atypical Lymphocyte % Manual 1(H) <=0 % 04/25/2012 1:57 PM CDT [facility] Band % Manual 7 0 - 11 % 04/25/2012 1:57 PM CDT [facility] Cells Counted 100 # cells 04/25/2012 1:57 PM CDT [facility] WBC Morph Normal 04/25/2012 1:57 PM CDT [facility] Anisocytosis 1+ 04/25/2012 1:57 PM CDT [facility] Poikilocytosis 1+ 04/25/2012 1:57 PM CDT [facility] Blood specimen (specimen) BLOOD SPECIMEN / Unknown 04/25/2012 12:56 PM CDT 04/25/2012 1:03 PM CDT John Anderson DO LAB - HEMATOLOGY OR DERABLES [facility] [address] [address] * BLOOD TYPE VERIFICATION (04/25/2012 7:48 AM CDT) ABO A 04/25/2012 7:48 AM CDT [facility] Rh Type Positive 04/25/2012 7:48 AM CDT [facility] Miscellaneous samples (specimen) BLOOD SPECIMEN / Unknown 04/25/2012 7:32 AM CDT Remington Ortiz MD LAB - BLOOD BANK ORD ERABLES [facility] * CROSSMATCH RBC (04/25/2012 6:00 AM CDT) Only the most recent of4 resultswithin the time period is included. Unit Donor # [id number] -6 04/29/2012 2:10 AM CDT [facility] Product Code E0424 04/29/2012 2:10 AM CDT [facility] Unit Description E0424 RBC, LR, -5 04/29/2012 2:10 AM CDT [facility] ABO Donor Type A 04/29/2012 2:10 AM CDT [facility] Rh Type Unit POS 04/29/2012 2:10 AM CDT [facility] Crossmatch Interpretation Compatible 04/29/2012 2:10 AM CDT [facility] Unit Status Returned 04/29/2012 2:10 AM CDT [facility] Miscellaneous samples (specimen) BLOOD SPECIMEN / Unknown 04/25/2012 6:00 AM CDT 04/25/2012 4:46 PM CDT John Anderson DO LAB - BLOOD BANK OR DERABLES [facility] * BLOOD TYPE ABO+ RH PANEL (04/25/2012 6:00 AM CDT) ABO A 04/25/2012 6:54 AM CDT [facility] Rh Type Positive 04/25/2012 6:54 AM CDT [facility] Comment:No historical blood type. Retype required. Miscellaneous samples (specimen) BLOOD SPECIMEN / Unknown 04/25/2012 6:00 AM CDT 04/25/2012 6:23 AM CDT Remington Ortiz MD LAB - BLOOD BANK ORD ERABLES [facility] * ANTIBODY SCREEN (04/25/2012 6:00 AM CDT) Antibody Screen Negative 04/25/2012 7:01 AM CDT [facility] Miscellaneous samples (specimen) BLOOD SPECIMEN / Unknown 04/25/2012 6:00 AM CDT 04/25/2012 6:23 AM CDT Remington Ortiz MD LAB - BLOOD BANK ORD ERAEDUAR Performing Organization Address City/[facility]/ZIP Co de Phone Number [facility] * LAB RESULTS ORDER (04/16/2012) Remington Ortiz MD LAB - THERAPEUTIC DR UG MONITORING ORDERABLES * XR CHEST PA AND LATERAL (04/16/2012) Anatomical Region Laterality Modality Chest Other Remington Ortiz MD DIAGNOSTIC IMAGING O RDERABLES * RAD OUTSIDE IMG IMPORT (02/24/2012 11:19 AM [facility]) Anatomical Region Laterality Modality Radiographic Alejandra ging Narrative 02/25/2012 9:12 AM [facility] OUTSIDE IMAGES COULD NOT BE IMPORTED Procedure Note Albertina Bravo (Clerical Edit) - 02/25/2012 OUTSIDE IMAGES COULD NOT BE IMPORTED Remington Ortiz MD DIAGNOSTIC IMAGING O RDERABLES * XR CERVICAL SPINE MIN 4+ VW (02/23/2012 5:14 PM [facility]) Anatomical Region Laterality Modality Spine Radiographic Alejandra ging 02/23/2012 5:31 PM [facility] Narrative 02/23/2012 5:58 PM [facility] FOUR-VIEW CERVICAL SPINE WITH FLEXION AND EXTENSION CLINICAL INDICATION: Neck pain FINDINGS: There is reversal of the normal cervical lordosis. There is partial fusion of the C5 and C6 vertebral bodies. There is osteopenia. There is no soft tissue swelling. There is no fracture. Procedure Note Kandy Irene MD - 02/23/2012 FOUR-VIEW CERVICAL SPINE WITH FLEXION AND EXTENSION CLINICAL INDICATION: Neck pain FINDINGS: There is reversal of the normal cervical lordosis. There is partial fusion of the C5 and C6 vertebral bodies. There is osteopenia. There is no soft tissue swelling. There is no fracture. Remington Ortiz MD DIAGNOSTIC IMAGING O RDERABLES * MRI SPINE CERVICAL NON CONTRAST (01/28/2012) Only the most recent of2 resultswithin the time period is included. Anatomical Region Laterality Modality Pelvis Other Remington Ortiz MD MR ORDERABLES * GROSS + MICRO EXAM (12/06/2011 9:43 AM CDT) Only the most recent of2 resultswithin the time period is included. Result CASE NUMBER [id number] Comment: ORDERING PHYSICIAN FELICE DE LA GARZA SPECIMEN TYPE Biopsy-Egd,antrum *CLINICAL HISTORY Gastroesophageal reflux disease, biopsy of normal gastric mucosa to rule out H. Pylori. OPERATIVE PROCEDURE EGD with biopsy. SPECIMEN SOURCE Biopsy antrum. GROSS DESCRIPTION The specimen is received in one part. Received in formalin, labeled with the patient's identification, and biopsy antrum is a fragment of lamar mucosal tissue measuring 0.2 x 0.1 x <0.1 cm. Submitted entirely in cassette A1. HC/[facility] GROSSED BY TAVO MUKHERJEE M.D. *MICROSCOPIC EXAM A fragment of oxyntic mucosa shows no significant pathologic abnormality. No antral mucosa is noted. A diff-quick stain reveals no Helicobacter organisms. HC/alj READ BY TAVO MUKHERJEE M.D. DIAGNOSIS STOMACH, ANTRUM, BIOPSY - FRAGMENT OF OXYNTIC MUCOSA WITH NO PATHOLOGIC ABNORMALITY. - NO H.PYLORI ORGANISMS IDENTIFIED. HC/alj RELEASED BY TAVO MUKHERJEE MISCELLANEOUS SAMPLES / Unknown 12/06/2011 9:43 AM CDT 12/06/2011 11:25 AM CDT Historical Provider LAB - PATHOLOGY/C YTOLOGY ORDERABLES * CYTOLOGY NON-GANDY DANCER PANEL (11/27/2009 12:50 PM CDT) Only the most recent of2 resultswithin the time period is included. Result CASE NUMBER [id number] Comment: ORDERING PHYSICIAN JASON SORENSEN SPECIMEN TYPE CSF SPECIMEN SOURCE Cerebrospinal fluid. *CLINICAL HISTORY Headache, fever. GROSS DESCRIPTION Cerebrospinal fluid, consists of 2 ml clear, colorless fluid. MATERIAL PREPARED 2 cytospins (1 Diff Quik, 1 Pap). *MICROSCOPIC EXAM Microscopic examination is performed and substantiates the above diagnosis. DIAGNOSIS CEREBROSPINAL FLUID - NEGATIVE FOR MALIGNANCY. - SPARSE MONONUCLEAR LEUKOCYTES AND RED BLOOD CELLS. - NO DEFINITIVE INFECTIOUS PROCESS OR ORGANISMS IDENTIFIED. READ BY TAVO MUKHERJEE M.D. RELEASED BY TAVO MUKHERJEE MISCELLANEOUS SAMPLES / Unknown 11/27/2009 12:50 PM CDT 11/27/2009 2:48 PM CDT Historical Provider LAB - PATHOLOGY/C YTOLOGY ORDERABLES Care Teams Correction Officer Supervisor Relationship Specialty Start Date End Date Alex Chavez MD [address] [id number] PCP - General Family Medicine 04/25/12
--- OUTSIDE RECORDS SUMMARY | 2024-04-06 09:25 | XMS_ITS | Referral Summary ---
Author Organization [facility] [employer] Address [address] [place] [address] Care Team Providers Care Engineering Specialist Name Role Phone Alex Chavez MD Primary Care Provider [phone] Source Comments [facility],non-owned Affiliates and Associated Physician Practices is amultiple site organization consisting of ambulatory clinics and hospital sitesin [place], [place], [place] and [place]. This disclosure is being madepursuant to the Care Everywhere program and may not contain all information available regarding this patient. Last updated 17.[employer] [facility] Allergies No known active allergies Medications * Be aware that medications may not be up to date on this document. Alwaysverify current medications with the patient. Medication Sig Dispensed Refills Start Date End Date Status pantoprazole EC (PROTONIX) 40 MG tablet Take 40 mg by mouth 2 times daily. Active vilazodone (VIIBRYD) 40 MG tablet Take 40 mg by mouth daily with breakfast. Active topiramate (TOPAMAX) 100 MG tablet Take 100 mg by mouth 2 times daily. Active B Jfccghk-Dmibhx-TP (SUPER B-COMPLEX) CAPS Take by mouth once daily. Active diazepam (VALIUM) 5 MG tablet Take 1 Tab by mouth 3 times daily as needed for Spasms. 30 Tab 0 04/28/2012 Active rosuvastatin (CRESTOR) 10 MG tablet 1 Tab once daily. Active Nerve Stimulator (EMJOI TENS) TIMOTHY Use 1 Device as needed. 1 Device 0 07/12/2012 Active albuterol HFA (PROVENTIL;VENTOLIN;P ROAIR) 108 (90 BASE) MCG/ACT inhaler Inhale 2 puffs by mouth every 4 hours as needed 1 Inhaler 03/13/2017 Active Active Problems Problem Noted Date Diagnosed Date [...] Mass Index 29.84 07/12/2012 10:01 AM CDT Plan of Treatment Not on file Medical Devices Implanted Type Area Drosophere Operator Device Identifier Shelf Expiration Date Model / Serial / Lot Screw Implanted:Qty: 2 on 04/25/2012 by Remington Ortiz [place] at [facility] [place] [facility] Back [employer] [id number] / / Screws Implanted:Qty: 4 on 04/25/2012 by Remington Ortiz MD at [facility] [place] [facility] [id number] / / Screw Implanted:Qty: 1 on 04/25/2012 at [facility] [place] [facility] [employer] [id number] / / Screws Implanted:Qty: 2 on 04/25/2012 by Remington Ortiz MD at [facility] [place] [facility] [employer] [id number] / / Praneeth Implanted:Qty: 1 on 04/25/2012 by Remington Ortiz MD at [facility] [place] [facility]: Neck [employer] [id number] / / Set Screws Implanted:Qty: 10 on 04/25/2012 by Remington Ortiz MD at [facility] [place] [facility]: Neck [id number] / / Putty Brady-3 Dbm 10cc Implanted:Qty: 1 on 04/25/2012 at [facility] [place] [facility] [employer] 01/14/20135000-10 0 / / [id number] Description:in or record to add lot#, TB Peek Implanted:Qty: 1 on 04/25/2012 by Remington Ortiz MD at [facility] [place] [facility] Neck [employer] [id number] / / [id number] Peek Implanted:Qty: 1 on 04/25/2012 at [facility] [place] [facility] [employer] [id number] / / [id number] Peek Implanted:Qty: 1 on 04/25/2012 by Remington Ortiz MD at [facility] [place] [facility] [place] [employer] [employer] [id number] / / [id number] Screws Implanted:Qty: 8 on 04/25/2012 by Remington Ortiz MD at [facility] [employer] 07.40055.0 07 / / Plate Implanted:Qty: 1 on 04/25/2012 by Remington Ortiz MD at [facility] [place] [facility] [place] [employer] 07.28604.0 06 / / Screws Implanted:Qty: 2 on 04/25/2012 at [facility] [employer] 07.157857. 003 / / Screws Implanted:Qty: 1 on 04/25/2012 by Remington Ortiz MD at [facility] [place] [facility] [place] [employer] [employer] [id number] / / Advance Directives * FULL RESUSCITATION (Latest Code Status on File) Date Activated Date Inactivated Comments 04/26/2012 12:34 AM 04/28/2012 2:39 PM * FULL RESUSCITATION Date Activated Date Inactivated Comments 04/25/2012 10:37 PM 04/26/2012 12:34 AM Care Teams Engineering Specialist Relationship Specialty Start Date End Date Alex Chavez MD [address] [address] PCP - General Family Medicine 04/25/12
--- OUTSIDE RECORDS SUMMARY | 2024-04-06 09:25 | XMS_ITS | Clinical Summary ---
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 Role Phone Alex Chavez MD Primary Care Provider Lorenzo Coyle MD Unavailable Allergies No known active allergies Medications pantoprazole DR (PROTONIX) 40 mg EC tablet Take 1 tablet (40 mg total) by mouth daily Active b complex vitamins capsule Take 1 capsule by mouth daily Active atenolol (TENORMIN) 25 mg tablet Take 1 tablet (25 mg total) by mouth daily Active levomefolate-alga l oil 15-90.314 mg capsule Take by mouth Activ e diazePAM (VALIUM) 10 mg tablet Take 1 tablet (10 mg total) by mouth every 6 (six) hours as needed for muscle spasms As needed Active EPINEPHrine 0.3 mg/0.3 mL auto-injection syringeIndication s:Anaphylaxis Inject 0.3 mL (0.3 mg total) into the muscle as instructed once for 1 dose 0.3 mL 2 023 Active Additional Information Patient not taking.Reported on 11/22/2023 dextroamphetamine -amphetamine XR (ADDERALL XR) 30 mg 24 hr capsule Take 2 capsules (60 mg total) by mouth every morning 024 Active butalbital-acetam inophen-caffeine (FIORICET) 50-300-40 mg per capsule Take 1 capsule by mouth every 4 (four) hours as needed Active meloxicam (MOBIC) 15 mg tablet TAKE 1 TABLET (15 MG TOTAL) BY MOUTH DAILY. 30 tablet 2 024 2024 Active abatacept (Orencia ClickJect) 125 mg/mL auto-injector Take 1 pen weekly subcutaneously 4 mL Active methotrexate 2.5 mg tabletIndications :Primary osteoarthritis involving multiple joints TAKE 10 TABLETS BY MOUTH EVERY 7 DAYS. 120 tablet 2 025 Active methotrexate 2.5 mg tabletIndications :Primary osteoarthritis involving multiple joints TAKE 10 TABLETS BY MOUTH EVERY 7 DAYS. 40 tablet 3 024 2024 Discontinued Active Problems Problem Noted Date Diagnosed Date Chronic fatigue 06/15/2023 Assessment & Plan (06/15/2023 11:57 AM CDT): Likely multifactoral. Encourage compliance with CPAP. Also discuss evaluation for depression with you PCP. I would encourage you to see a pain psychologist too as I believe pain is a contributor to your fatigue and mood fluctuations. As you are concerned MTX is a component to your fatigue, you can try a slow wean of dose to see if this improves your symptoms. 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 Please remember that NSAID- type medications have two very important potential side effects: gastrointestinal irritation including hemorrhage and renal injuries. Make sure to take the medication with food and to stop if you experiences any GI upset. Please call our office or your PCP should you develop vomiting, abdominal pain or black/bloody stools. Make sure to take NSAID-type medications with food and stay well-hydrated to reduce the risk of GI or kidney issues. Take care when using nmtl-tld-ukheuqz medications as some also contain NSAIDs. The most common tnbk-ksk-vehwmts NSAIDs include naproxen and ibuprofen. Make sure that you do not take more than one oral NSAID-type medications at the same time unless specifically directed to by a medical professional. Primary osteoarthritis involving multiple joints 10/26/2021 Assessment & Plan (06/15/2023 11:55 AM CDT): You can use topical diclofenac gel massaged in to hands and knees three times a day for relief of arthritic joint pain. Voltaren gel is a common brand name but there are certainly other store- brand/generic options. Just make sure that the active ingredient is diclofenac For optimal benefit, avoid washing hands for about 30 minutes after application. Also remember that this topical gel contains a non-steroidal pain reliever and should be kept away from children and pets. Assessment & Plan (10/26/2021 9:22 AM CDT): DC feldene and resume meloxicam. Follow up with ortho for next small joint injection/right great toe. Advice given about 2019 novel coronavirus by tel matt 05/16/2019 Assessment & Plan (2019 8:46 PM CDT): You may review the current [employer] Covid-19 clinical guidance for Patients with Rheumatic Diseases if you copy and paste the link below into your web browser: [email or web address]-[email or web address] Of course, methotrexate and Humiura should be placed on hold in the event you were to become ill and resumed only after complete recovery. Assessment & Plan (05/16/2019 9:39 AM CDT): Currently there are no specific data on the impact of rheumatologic disease or immunosuppressive medications on the course of coronavirus infection. In the meantime everyone needs to be vigilant with the CDC guidelines and precautions. The usual CDC precautions for minimizing coronavirus risk are appropriate. Frequently wash your hands with soap and water for at least 20 seconds. When soap and running water are unavailable, use an alcohol-based hand rub with at least 60% alcohol. Always wash hands that are visibly soiled. Avoid touching your eyes, nose, or mouth with unwashed hands. Avoid close contact with people who are sick and maintain social distancing. Obviously this is a fast-moving issue and the CDC is providing regular updates as the course and extent of the epidemic is monitored. You may keep up to date at the CDC website: www.coronavirus.gov You may also find more information relevant to your questions at the [employer] webpage: arthritis.org. Click on the Coronavirus banner. Feel free to reach out to us if you have additional questions after you review this information. Lorenzo Coyle MD Nephrolithiasis 05/16/2019 Assessment & Plan (05/16/2019 9:42 AM CDT): Currently with non-obstructing stone at ureteropelvic junction being managed per with tamsulosin and fluids; passed some granules and pain has subsided. Verruca plana 11/20/2018 Assessment & Plan (11/20/2018 4:49 AM CDT): Lesions to dorsal area of the hands. Cutaneous biopsy was suggestive of verruca plana. Treated with bleomycin. Will continue to follow Dr. Prabhakar (derm). Class 1 obesity due to exces s calories with serious comorbidity and body mass index (BMI) of 33.0 to 33.9 in adult 11/10/2018 Assessment & Plan (02/13/2019 12:32 PM GYNECOLOGIST): An optimal BMI (body mass index) is between 20 and 25. Encourage weight loss. Each pound of weight lost unloads 3-4 pounds per square inch pressure from weight bearing joints. Diet and exercise are the keys to weight management. Assessment & Plan (11/20/2018 4:48 AM CDT): A BMI or body mass index between 20 and 25 is considered healthy. A combination of diet and exercise can help to attain/maintain a healthy BMI to improve vascular risk factors and diabetes risk. Each pound of weight lost unloads 3-4 pounds per square inch pressure from weight bearing joint. Encounter for administration of vaccine 12/27/19 18 Essential hypertension 07/08/2017 Assessment & Plan (2019 8:47 PM CDT): Wt Readings from Last 3 Encounters: 10/15/19 104.3 kg (230 lb) 05/16/19 106.1 kg (233 lb 12.8 oz) 02/13/19 109.8 kg (242 lb) Temp Readings from Last 3 Encounters: 10/15/19 36.4 C (97.5 F) (Temporal) 05/16/19 36.3 C (97.3 F) (Oral) 02/13/19 36.7 C (98.1 F) (Oral) BP Readings from Last 3 Encounters: 10/15/19 134/80 05/18/19 134/96 02/13/19 118/82 Pulse Readings from Last 3 Encounters: 10/15/19 75 02/13/19 72 11/10/18 86 Denies headache, dizziness, chest pain, palpitations, shortness of breath, edema, orthopnea, PND. Assessment & Plan (05/16/2019 9:42 AM CDT): Vitals BP 140/100 (BP Location: Left arm, Patient Position: Sitting) Temp 36.3 C (97.3 F) (Oral) Ht 180.3 cm (5' 10.98 ) Wt 109.8 kg (242 lb) BMI 33.77 kg/m Mild hypertension noted. Patient advised to monitor per home cuff and report to Dr. Chavez if still elevated. Denies headache, dizziness, chest pain, palpitations, shortness of breath, edema, orthopnea, PND. Assessment & Plan (02/13/2019 12:30 PM GYNECOLOGIST): Vitals BP 118/82 (BP Location: Left arm, Patient Position: Sitting) Pulse 72 Temp 36.7 C (98.1 F) (Oral) Resp 18 Ht 180.3 cm (5' 10.98 ) Wt 109.8 kg (242 lb) BMI 33.77 kg/m Denies headache, dizziness, chest pain, palpitations, shortness of breath, edema, orthopnea, PND. Assessment & Plan (08/07/2018 3:36 PM CDT): Vitals BP 132/86 (BP Location: Right arm, Patient Position: Sitting) Pulse 88 Temp 36.8 C (98.3 F) (Oral) Resp 18 Ht 180.3 cm (5' 10.98 ) Wt 110.2 kg (243 lb) BMI 33.91 kg/m Denies headache, dizziness, chest pain, palpitations, shortness of breath, edema, orthopnea, PND. Assessment & Plan (06/07/2018 10:27 AM CDT): Vitals BP 118/82 (BP Location: Left arm, Patient Position: Sitting) Pulse 76 Temp 36.7 C (98 F) (Oral) Resp 20 Ht 180.3 cm (5' 10.98 ) Wt 109.8 kg (242 lb) BMI 33.77 kg/m Denies headache, dizziness, chest pain, palpitations, shortness of breath, edema, orthopnea, PND. Assessment & Plan (07/08/2017 2:15 PM CDT): Vitals: 07/08/17 1337 BP: 136/80 Pulse: 78 Resp: 16 Temp: 36.9 C (98.5 F) SpO2: 93% Recently started atenolol per Dr. Chavez, noted. Denies headache, dizziness, chest pain, palpitations, shortness of breath, edema, orthopnea, PND. Encounter for long-term (cur rent) use of high-risk medication 02/08/2017 Assessment & Plan (06/15/2023 11:50 AM CDT): Long-term use of high-risk medication requiring regular monitoring. Labs done this week at [facility]. no s/s of med tox or infection. Encouraged to work with PCP to make sure all recommended cancer screens and vaccinations are complete. Avoid live-vaccines unless reviewed with receivable clerk first. Assessment & Plan (11/19/2022 11:01 AM CDT): Long-term use of high-risk medication requiring regular monitoring. Labs ordered, no s/s of med tox or infection. Encouraged to work with PCP to make sure all recommended cancer screens and vaccinations are complete. Avoid live-vaccines unless reviewed with receivable clerk first. Assessment & Plan (10/25/2021 9:07 PM CDT): Long-term use of high-risk medication requiring regular monitoring. Labs ordered, no s/s of med tox or infection. Encouraged to work with PCP to make sure all recommended cancer screens and vaccinations are complete. Avoid live-vaccines unless reviewed with receivable clerk first. Assessment & Plan (2019 8:47 PM CDT): Lab Results Component Value Date WBC 6.3 06/07/2018 HGB 15.7 06/07/2018 HCT 47.3 06/07/2018 MCV 94.4 06/07/2018 LABPLAT 187 06/07/2018 Lab Results Component Value Date GLUCOSE 107 06/07/2018 CALCIUM 9.2 06/07/2018 SODIUM 143 06/07/2018 POTASSIUM 4.2 06/07/2018 CO2 27 06/07/2018 CHLORIDE 104 06/07/2018 BUNSER 15 06/07/2018 CREATININE 0.78 (L) 06/07/2018 Lab Results Component Value Date ALT 27 06/07/2018 AST 26 06/07/2018 ALKPHOS 71 06/07/2018 BILITOT 0.3 06/07/2018 Lab Results Component Value Date SEDRATE 3 11/10/2018 Lab Results Component Value Date CRP 0.9 11/10/2018 Lab Results Component Value Date SEDRATE 3 11/10/2018 Patient on medications requiring periodic lab monitoring for drug safety. Update lab as per orders written. Assessment & Plan (05/16/2019 9:39 AM CDT): Patient on medications requiring periodic lab monitoring for drug safety. Update lab as per orders written. Assessment & Plan (02/13/2019 12:29 PM GYNECOLOGIST): Patient on immunosuppressive medications requiring periodic lab monitoring for drug safety. Update lab as per orders written. Assessment & Plan (11/20/2018 4:48 AM CDT): Patient on immunosuppressive medications requiring periodic lab monitoring for drug safety. Assessment & Plan (08/07/2018 3:36 PM CDT): Patient on immunosuppressive medications requiring periodic lab monitoring for drug safety. Update lab as per orders written. Assessment & Plan (06/07/2018 10:28 AM CDT): Patient on immunosuppressive medications requiring periodic lab monitoring for drug safety. Update lab as per orders written. Assessment & Plan (12/26/2017 10:06 PM GYNECOLOGIST): Patient on immunosuppressive medications requiring periodic lab monitoring for drug safety. Assessment & Plan (09/05/2017 10:11 AM CDT): Patient on immunosuppressive medications requiring periodic lab monitoring for drug safety. Assessment & Plan (07/08/2017 2:10 PM CDT): Patient on immunosuppressive medications requiring periodic lab monitoring for drug safety. Update lab as per orders written. Assessment & Plan (03/23/2017 5:19 PM GYNECOLOGIST): Patient on immunosuppressive medications requiring periodic lab monitoring for drug safety. Update lab as per orders written. Assessment & Plan (02/08/2017 11:17 AM GYNECOLOGIST): Patient on immunosuppressive medications requiring periodic lab monitoring for drug safety. Update lab as per orders written. Polyarticular psoriatic arthritis 12/22/2016 Assessment & Plan (06/15/2023 11:50 AM CDT): He expresses some improvement in pain symptoms on orencia. Will continue same. He really would like to trial weaning off MTX and carefully assessing his symptoms. He will drop his MTX dose down by 1 pill every 2-3 weeks and assess his fatigue and pain symptoms. Follow up with Dr. Arthur in 4 months and prn. PT/OT for hand deformities, stiffness, weakness. Assessment & Plan (11/19/2022 11:01 AM CDT): Significant flare is disease activity. Will work toward change to orencia. Orencia (abatacept) is a selective costimulation modulator that inhibits T lymphocyte activation by binding to CD80/CD 86, blocking interaction with CD 28. Dosing is 125mg SQ qweek. Potential risks include risk of infection,and TB screening is recommended prior to start. Live vaccines should be avoided. Assessment & Plan (10/25/2021 9:07 PM CDT): Previously worsening joint damage while on humira and MTX. Humira was switched to [facility], will continue to monitor as there was delay in getting prior authorization. Assessment & Plan (2019 8:46 PM CDT): Psoriatic arthritis clinically stable on current med regimen (methotrexate and Humira). No med side effects reported. He is happy with his clinical response; reports marked improvement pain/stiffness hands.wrists. Plan continue same. Update lab as per orders. 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 He has no med side effects and finds his course clinically stable. He denies fever, chills, active plaque psoriasis (onycholysis stable), chest pain, cough, dyspnea, nausea/vomiting/diarrhea, dysuria (currently with non-obstructing stone at ureteropelvic junction being managed per with tamsulosin and fluids; passed some granules). From a Rheum perspective he is pleased with his clinical course. He understands he is due for lab update and will have them drawn at [facility] where he works. Refills provided as needed. Assessment & Plan (02/13/2019 12:41 PM GYNECOLOGIST): Good response to Humira (started 08/2018) without major flares since October. He tolerates same without side effects or injection site reactions. Remains as well on methotrexate 20 mg weekly. Update lab as per orders. Assessment & Plan (11/20/2018 4:47 AM CDT): Sees slight improvement on Humira which he started 09/04. Remains on methotrexate 20mg (8 x 2.5mg tabs). Continued pain to DIPs and with barometric pressure changes. Denies medication side effects. Discussed it may take up 3-6 months before he feels the full effects of Humira. Recent labs reviewed and stable. Will order remaining labs. Assessment & Plan (08/07/2018 3:35 PM CDT): Reviewed with patient recent imaging and progressive erosive changes. He is agreeable to starting Humira (educational materials previously provided) and we will authorize same. He understands he is to remains on methotrexate 20 mg (8 x 2.5 mg tab) weekly. Recent lab stable: Lab Results Component Value Date WBC 6.3 06/07/2018 HGB 15.7 06/07/2018 HCT 47.3 06/07/2018 MCV 94.4 06/07/2018 LABPLAT 187 06/07/2018 Chemistry Lab Results Component Value Date SODIUM 143 06/07/2018 POTASSIUM 4.2 06/07/2018 CHLORIDE 104 06/07/2018 CO2 27 06/07/2018 ANIONGAP 12 06/07/2018 BUNSER 15 06/07/2018 CREATININE 0.78 (L) 06/07/2018 GLUCOSE 107 06/07/2018 CALCIUM 9.2 06/07/2018 BILITOT 0.3 06/07/2018 ALBUMIN 4.9 06/07/2018 GFRNAA 101 06/07/2018 ALKPHOS 71 06/07/2018 AST 26 06/07/2018 ALT 27 06/07/2018 Lab Results Component Value Date SEDRATE 3 06/07/2018 Lab Results Component Value Date CRP 2.1 06/07/2018 Assessment & Plan (06/07/2018 10:37 AM CDT): Psoriatic arthritis with intermittent flares (sometimes weather related). Continued swelling digits (especially DIP) noted. He has minor psoriatic plaque lesions L forearm. Update lab as per orders. Update imaging hands to evaluate progressive erosive changes. Consider adding a biologic response modifier (Humira) to current regimen pend clinical course and diagnostic review. TNF INHIBITOR PATIENT INFORMATION: TNF inhibitors are a type of drug used worldwide to treat inflammatory conditions such as rheumatoid arthritis (RA), psoriatic arthritis, juvenile arthritis, inflammatory bowel disease (Crohn s and ulcerative colitis), ankylosing spondylitis, and psoriasis. They reduce inflammation and stop disease progression by targeting an inflammation-causing substance called Tumor Necrosis Factor (TNF). In healthy individuals, excess TNF in the blood is blocked naturally, but in those who have rheumatic conditions, higher levels of TNF in the blood lead to more inflammation and persistent symptoms. They can alter a disease s effect on the body by controlling inflammation in the joints, gastrointestinal tract, and skin. There are different TNF inhibitors that have been approved by the U.S. Food and Drug Administration for the treatment of rheumatic diseases. To decrease side effects and costs, most patients with mild or moderate disease may be treated with methotrexate before adding or switching to a TNF inhibitor. These agents can be used by themselves or in combination with other medications such as prednisone, methotrexate, hydroxychloroquine, leflunomide, or sulfasalazine. HOW TO TAKE IT: TNF inhibitors may be given by injection under the skin or by infusion into the vein. There are pamphlets and videos that can teach you how to give yourself an injection under the skin. Physicians, nurses, and pharmacists can also teach you how to give the injection. The medicine can be injected into the thigh or abdomen. The site of injection should be rotated so the same site is not used multiple times. Infliximab and golimumab infusions are administered at a doctor s office or an infusion center. These treatments take up to four hours. The time that it takes for the medication to have an effect may vary by patient. Most patients have reported a change in their symptoms after two or three doses, but it usually takes three months to see the full benefit. SIDE EFFECTS: The most common side effect seen with the injectable drugs are skin reactions, commonly referred to as i njection site reactions. The patients usually complain of a localized rash with burning or itching. These reactions can last up to a week. Infliximab has been associated with a severe allergic reaction with swelling of the lips, difficulty breathing and low blood pressure. Your doctor will usually order a pre-medication to decrease the chances of an infusion reaction. The most significant side effect is an increased risk for all types of infections, including tuberculosis (TB) and fungal infections. Some of these infections may be severe. Patients should be tested for TB before starting therapy, because a hepatitis B infection can worsen during treatment. The usual way of testing is with a skin test, but a blood test is also available. Long-term use of TNF inhibitors may increase the risk of cancers such as lymphoma and skin cancer. There are rare neurologic complications as well.. People who have a history of multiple sclerosis should not use them. People with significant heart failure should not use a TNF inhibitor, because their heart disease could worsen. TELL YOUR DOCTOR: TNF inhibitors should be stopped if the patient has high fever or is being treated with antibiotics for an infection. Once the medication is stopped, it should not be restarted until the infection goes away. Patients should talk to their doctor before getting any vaccinations while using an anti-TNF drug. Some vaccinations are safe, but live vaccines should be avoided. These medications are expensive (more than $10,000 per year), but they are covered by most health care insurance plans. Copay amounts vary widely. Ask your doctor about prescription assistance plans that can help you to get the medication at a lower junior or free of charge. Refer to the package insert for more information. - Updated March 2016 by Joelle Galindo MD, and reviewed by the [employer] Committee on Communications and Marketing. This information is provided for general education only. Individuals should consult a qualified health care provider for professional medical advice, diagnosis and treatment of a medical or health condition. 2017 [employer] See more at: [email or web address] Assessment & Plan (12/26/2017 10:07 PM GYNECOLOGIST): Patient with psoriatic arthritis present for scheduled follow up. Overall all doing ok except right index finger DIP joint is very painful. Only helps if he applies pressure. No new skin rashes. Tolerating methotrexate without side effects. Continue present regimen. Will set up IASI of right index finger with Dr. Coyle. Assessment & Plan (09/05/2017 10:13 AM CDT): Psoriatic arthritis follow up with continued improvement on current medication regimen. Recent increase tolerating well. No side effects reported. Recent labs reviewed and satisfactory. Recently diagnosed with bilateral kidney stones. Left lithotripsy procedure 2 weeks ago. Assessment & Plan (07/08/2017 2:10 PM CDT): Psoriatic arthritis with improvement on methotrexate regimen (15 mg weekly). Tolerates same with minimal side effects. Will increase dose to 8 x 2.5 mg tablets once each week. Continue folic acid. Update lab as per orders. Assessment & Plan (02/08/2017 11:15 AM GYNECOLOGIST): Psoriatic arthritis (clinically confirmed by ultrasound exam). Started methotrexate 10 mg weekly. Complains of nausea 2-3 days after dose with diaphoresis (no vomiting). Will update lab as per order. Reduce meloxicam to 7.5 mg daily. IF liver enzymes satisfactory will proceed to increase methortrexate per protocol to 15 mg (6 x 2.5 mg tab) weekly. Adult ADHD 10/06/2016 Gastroesophageal reflux disease without esophagi tis 10/06/2016 Migraine 10/06/2016 Anxiety and depression 10/06/2016 Obstructive sleep apnea 10/06/2016 Assessment & Plan (02/13/2019 12:34 PM GYNECOLOGIST): Recommend return to sleep center to be reevaluated and updated CPAP equipment (his current device is from 2008. Mixed hyperlipidemia 10/06/2016 Brachial plexopathy 04/26/2012 Cervical spine arthritis 04/26/2012 Depression 04/26/2012 Resolved Problems Problem Noted Date Diagnosed Date Resolved Date Class 1 obesity due to exces s calories with serious comorbidity and body mass index (BMI) of 33.0 to 33.9 in adult 11/10/2018 02/13/2019 Assessment & Plan (02/13/2019 12:32 PM GYNECOLOGIST): An optimal BMI (body mass index) is between 20 and 25. Encourage weight loss. Each pound of weight lost unloads 3-4 pounds per square inch pressure from weight bearing joints. Diet and exercise are the keys to weight management. Assessment & Plan (11/20/2018 4:48 AM CDT): As above Psoriatic arthritis 10/06/2016 11/21/19 19 Assessment & Plan (12/22/2016 12:08 PM GYNECOLOGIST): Reviewed with patient radiographic findings of osteoarthritis (without erosions) though his acute inflammatory episodes, predilection for DIP involvement, ridging nails and tiny scaly psoriasiform skin lesions (upper extremity) increase concern for psoriatic arthritis. Reviewed role of DMARD therapies and recommendations for trial methotrexate. Discussed risk/benefit profile including alcohol restrictions. He will start methotrexate 10 mg (4 x 2.5 mg tab) weekly along with folic acid supplement. Recommend ultrasound hands/wrists to rule out occult erosive changes. METHOTREXATE PATIENT INFORMATION Methotrexate is one of the most effective and commonly used medications in the treatment of rheumatoid arthritis and other forms of inflammatory arthritis, and also may be used to treat lupus, inflammatory myositis, vasculitis, and some forms of childhood arthritis. It is often used in combination with other medications to treat arthritis. It is known as a disease-modifying anti-rheumatic drug (DMARD), because it not only decreases the pain and swelling of arthritis, but it also can decrease damage to joints and long-term disability HOW TO TAKE IT: Methotrexate comes either as pills or as a subcutaneous injection. Methotrexate is usually taken as a single dose once per week, although occasionally the dose is split into two doses, taken once per week, to improve absorption or avoid side effects. Your doctor also may prescribe a folic acid (or folate) vitamin supplement to decrease the chance of side effects. Methotrexate should not be taken if kidney or liver function is not normal. Alcohol significantly increases the risk for liver damage while taking methotrexate, so alcohol should be avoided. Regular laboratory monitoring is required to monitor blood counts and your liver while taking methotrexate. Improvements in arthritis and other conditions usually are first seen in three - six weeks. The full benefit of this drug may not be seen until after 12 weeks of treatment. SIDE EFFECTS: Methotrexate can lower the ability of your immune system to fight infections. If you develop symptoms of an infection while using this medication, you should stop it and contact your doctor. The most common side effects are gastrointestinal upset and elevations of liver function tests. About 1 - 3% of patients develop mouth sores (called stomatitis), rash, diarrhea, and abnormalities in blood counts. Some side effects do not cause symptoms, so it is important to have routine blood tests performed every 8 - 12 weeks. Methotrexate may cause cirrhosis (scarring) of the liver, but this side effect is rare and most likely to occur in patients who already have liver problems or are using alcohol or taking other drugs that are toxic to the liver. Lung problems (persistent cough or unexplained shortness of breath) can occur rarely when taking methotrexate. Slow hair loss is seen in some patients, but hair grows back when the person stops taking this medication. This can often be managed by taking folic acid. It is important to remember that most patients do not experience side effects, and that, for those who do, many of the minor side effects will improve with time. TELL YOUR DOCTOR: You should contact your doctor of you develop symptoms of an infection, such as a fever or cough, or if you think you are having any side effects. Be sure to let your doctor know if you are , planning to get , or if you are . Methotrexate treatment should be discontinued for at least three months before attempting to become . Even though methotrexate should not be taken during , it does not reduce a woman s chance of becoming in the future. Men taking methotrexate should talk to their physician prior to attempts to conceive. If you are planning on having surgery or will be receiving chemotherapy or radiation therapy, talk to your doctor first. Updated April 2016 by Nick Gayle MD and reviewed by the [employer] Committee on Communications and MarketingThis patient fact sheet is provided for general education only. Individuals should consult a qualified health care provider for professional medical advice, diagnosis and treatment of a medical or health condition. 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 Alex Chavez for Rheumatology Consultation after the acute onset of inflammatory arthritis affecting DIP joints of both hands. Initial routine lab studies including ESR, CRP, uric acid, and Rheumatoid Factor were normal. Patient has mild involvement of feet as well (especially right first MTP). It is interesting to note that he had a bronchoscopy performed in 2009 for evaluation of recurrent cough with mediastinal adenopathy with nonspecific pathology report: FINAL DIAGNOSIS A. LYMPH NODE, RIGHT PARATRACHEAL, FINE NEEDLE ASPIRATION: - NEGATIVE FOR MALIGNANCY - GRANULOMATOUS INFLAMMATION - LYMPHOID COMPONENT PRESENT B. LUNG, RIGHT LOWER LOBE, FINE NEEDLE ASPIRATION: - NEGATIVE FOR MALIGNANCY - GRANULOMATOUS INFLAMMATION - LYMPHOID COMPONENT PRESENT The presence of granulomatous inflammation is worth noting (?sarcoid). Patient reports subsequent chest x-rays have been normal. Also of noted is a family history of psoriasis (maternal first cousin) as well as his daughter with severe Crohn's Disease with fistula formation (in remission now on adalimumab, Humira). Mr. Sterling had an unremarkable colonoscopy himself at age 51 and has been managed for irritable bowel complaints. While his current arthritis symptoms might be inflammatory erosive Oa, I am more concerned about probable seronegative arthropathy such as that associated with inflammatory bowel disease and psoriasis. We will supplement labs as per orders and x-ray hands and feet as well as sacroiliac joints. I have prescribed meloxicam for initial symptom management with more specific therapeutic decisions to follow diagnostic review. Class 1 obesity due to exces s calories with serious comorbidity and body mass index (BMI) of 33.0 to 33.9 in adult 10/06/2016 02/13/2019 Assessment & Plan (02/13/2019 12:29 PM GYNECOLOGIST): An optimal BMI (body mass index) is between 20 and 25. Encourage weight loss. Each pound of weight lost unloads 3-4 pounds per square inch pressure from weight bearing joints. Diet and exercise are the keys to weight management. Assessment & Plan (08/07/2018 3:21 PM CDT): An optimal BMI (body mass index) is between 20 and 25. Encourage weight loss. Each pound of weight lost unloads 3-4 pounds per square inch pressure from weight bearing joints. Diet and exercise are the keys to weight management. Assessment & Plan (06/07/2018 10:28 AM CDT): An optimal BMI (body mass index) is between 20 and 25. Encourage weight loss. Each pound of weight lost unloads 3-4 pounds per square inch pressure from weight bearing joints. Diet and exercise are the keys to weight management. Assessment & Plan (09/05/2017 10:14 AM CDT): A BMI or body mass index between 20 and 25 is considered healthy. A combination of diet and exercise can help to attain/maintain a healthy BMI to improve vascular risk factors and diabetes risk. Each pound of weight lost unloads 3-4 pounds per square inch pressure from weight bearing joint. Assessment & Plan (07/08/2017 2:09 PM CDT): An optimal BMI (body mass index) is between 20 and 25. Encourage weight loss. Each pound of weight lost unloads 3-4 pounds per square inch pressure from weight bearing joints. Diet and exercise are the keys to weight management. Assessment & Plan (03/23/2017 5:19 PM GYNECOLOGIST): An optimal BMI (body mass index) is between 20 and 25. Encourage weight loss. Each pound of weight lost unloads 3-4 pounds per square inch pressure from weight bearing joints. Diet and exercise are the keys to weight management. Assessment & Plan (02/08/2017 11:17 AM GYNECOLOGIST): An optimal BMI (body mass index) is between 20 and 25. Encourage weight loss. Each pound of weight lost unloads 3-4 pounds per square inch pressure from weight bearing joints. Diet and exercise are the keys to weight management. Assessment & Plan (12/22/2016 12:07 PM GYNECOLOGIST): Reinforced importance of weight loss. An optimal BMI (body mass index) is between 20 and 25. Encourage weight loss. Each pound of weight lost unloads 3-4 pounds per square inch pressure from weight bearing joints. Diet and exercise are the keys to weight management. Assessment & Plan (10/06/2016 3:00 PM CDT): An optimal body mass index is between 20 and 25. Encourage weight loss. Each pound of weight lost unloads 3-4 pounds per square inch pressure from weight bearing joints. Diet and exercise are the keys to weight management. Encounters Date Type Department Care Team Description 03/12/2024 Telephone [facility] Rhe[facility]ology at [facility] [address] [place] [address] Rosa Isela Arthur MD Orencia shot question from Last 3 Months Immunizations Immunization Administration Dates Next Due Influenza, Quadrivalent, Spl it, Preservative Free, Intramuscular 11/21/2021,11/25/2020,11/10/2018,12/02 Influenza, Unspecified 11/26/2022,12/15/2016 Moderna SARS-CoV-2 Monovalen t Vaccination (12+ YRS) 04/15/2020,03/18/2020 Pneumococcal Conjugate PCV 13 12/22/2016 Pneumococcal Polysaccharide PPV23 12/26/2017 Tdap 02/12/2018 ZOSTER Recombinant 01/07/2022,07/26/2021 Surgical History Surgery Date Site/Laterality Comments OTHER SURGICAL HISTORY 02/14/1975 - 02/14/1976 Left Singh pain- Left Tibial Osteoid Osteoma APPENDECTOMY 02/15/2004 - 02/13/2005 OTHER SURGICAL HISTORY 02/14/2011 - 02/14/2012 Colonoscopy/ EGD BRONCHOSCOPY 02/14/2009 - 02/13/2010 Pneumonia Modiastinal Node Enlargement OTHER SURGICAL HISTORY 02/15/2012 - 02/13/2013 Ant/Post. Cervical Fusion C4-T2 Medical History Medical History Date Comments Broken toe 05/2020 FOOT-Left 5th me tatarsal break Family History Medical History Relation Name Comments Hypertension Father Other Father Cardiac Cancer Maternal Grandfather Cancer Maternal Grandmother Diabetes Mother Other Mother Kidney Stones Heart disease Paternal Grandfather Cancer Paternal Grandmother Leukemi a Other Paternal Grandmother Colitis Relation Name Status Comments Father (Age 53) Maternal Grandfather Maternal Grandmother Mother Alive Paternal Grandfather Paternal Grandmother Social History Tobacco Use Types Packs/Day Years Used Date Smoking Tobacco: Never Smokeless Tobacco: Never Tobacco Cessation:Counseling Given: Not Answered Alcohol Use Standard Drinks/Week Comments No 0 (1 standard drink = 0.6 oz pure alcohol) every 3 months; caffeine 1-2 a day AUDIT-C Answer Date Recorded Q1: How often do you have a drink containing alc ohol? 2-4 times a month 03/16/2023 Q2: How many drinks containi ng alcohol do you have on a typical day when you are drinking? 1 or 2 03/16/2023 Q3: How often do you have si x or more drinks on one occasion? Monthly 03/16/2023 PHQ-2 Answer Date Recorded PHQ-2 Score 0 10/06/2018 Sex and Gender Information Value Date Recorded Sex Assigned at Not on file Legal Sex Male 9:08 AM GYNECOLOGIST Gender Identity Male 09/23/2020 7:50 PM CDT Sexual Orientation Straight 09/23/2020 7: 50 PM CDT Obstetrics History Last Filed Vital Signs Vital Sign Reading Time Taken Comments Blood Pressure 128/90 11/22/2023 7:59 AM CDT Pulse 76 11/22/2023 7:59 AM CDT Temperature 36.8 C (98.3 F) 11/22/2023 7:59 AM CDT Respiratory Rate 16 11/22/2023 7:59 AM CDT Oxygen Saturation 98% 06/15/2023 10:21 AM CDT Inhaled Oxygen Concentration - - Weight 109.3 kg (241 lb) 11/22/2023 7:59 AM CDT Height 177.8 cm (5' 10 ) 11/22/2023 7:59 AM CDT Body Mass Index 34.58 11/22/2023 7:59 AM CDT Plan of Treatment Health Maintenance Due Date Last Done Comments Colon Cancer Screening-Colonoscopy 1961 Prostate Cancer Screening-PSA 1961 Hepatitis B Screening 10/16/1979 Regular Well Visit/Exam 18-64 10/16/1979 Depression Screening 12/26/2018 12/26/2017 Covid-19 Vaccine (3 - Modern a risk series) 05/13/2020 04/15/2020, 03/18/2020 Pneumococcal vaccine <65 (3 of 3 - PPSV23, PCV20 or PCV21) 12/26/2022 12/26/2017, 12/22/2016 Influenza Vaccine (#1) 2023 , 11/21/2021, 11/25/2020, Additional history exists DTaP/Tdap/Td Vaccine (2 - Td or Tdap) 02/13/2028 02/12/2018 Hepatitis C Screening Completed 06/07/2018 Zoster Vaccine Completed 01/07/2022, 07/26/2021 Procedures Procedure Name Priority Date/Time Associated Diagnosis Comments HEPATITIS PANEL, ACUTE Routine 06/07/2018 10:43 AM CDT Psoriatic arthritis (CMS/HCC) from Last 3 Months or Most Recently Relevant to Health Maintenance Results * Hepatitis panel, acute (06/07/2018 10:43 AM CDT) Hep A IgM Non-Reactive Non-Reactive [facility] Hep B core IgM Non-Reactive Non-Reactive [facility] Hep C Ab Non-Reactive Non-Reactive [facility] HepBsAg Nonreactive Nonreactive [facility] Blood specimen (specimen) 06/07/2018 10:43 AM CDT 06/07/2018 2:02 PM CDT Narrative [facility] - 06/07/2018 3:19 PM CDT us Lorenzo Coyle MD LAB MICROBIOLOGY - GENERA L ORDERABLES Final Result [facility] [address] Department [place] [address] from Last 3 Months or Most Recently Relevant to Health Maintenance Insurance [facility] Member Subscriber Plan / Payer (Ef fective 2018-Present) Name:Pablo Sterling Relation to Subscriber:Self Name:Pablo Sterling Payer ID:[id number] (NAIC) Type:[facility] HMO/PPO Address: [place] [id number] [address] [facility] Care Teams Time Piece Repairer Relationship Specialty Start Date End Date Alex Chavez MD PCP - General Family Medicine 10/06/16 Lorenzo Coyle MD [address] [facility] [address] [place] [address] Consulting Physician Rheumatology 05/16/19
--- OUTSIDE RECORDS SUMMARY | 2024-04-06 09:25 | XMS_ITS | Referral Summary ---
Author Organization [facility] D Address [address] [place] [id number] Care Team Providers Care Archery Equipment Repairer Name Role Phone Alex Chavez MD Primary Care Provider Lorenzo Coyle MD Unavailable Encounters Date Type Department Care Team Description 03/12/2024 Telephone [facility] Rheumatology at [facility] [address] [place] [address] Rosa Isela Arthur MD Orencia shot question from Last 3 Months Allergies No known active allergies Medications pantoprazole [...] (60 mg total) by mouth every morning Active butalbital-acetam inophen-caffeine (FIORICET) 50-300-40 mg per capsule Take 1 capsule by mouth every 4 (four) hours as needed Active meloxicam (MOBIC) 15 mg tablet TAKE 1 TABLET (15 MG TOTAL) BY MOUTH DAILY. 30 tablet 2 024 2024 Active abatacept (Orencia ClickJect) 125 mg/mL auto-injector Take 1 pen weekly subcutaneously 4 mL 025 Active methotrexate 2.5 mg tabletIndications :Primary [...] to see if this improves your symptoms. retirement (current) use of n on-steroidal anti-inflammatories (nsaid) [...] or kidney issues. Take care when using hcha-iix-jyafwgh medications as some also contain NSAIDs. The most common ifru-vfv-bofbinc NSAIDs include naproxen and ibuprofen. Make sure [...] PM CDT): You may review the current [employer] Covid-19 clinical guidance for Patients with Rheumatic Diseases if you copy and paste the link below into your web browser: [email or web address]/[email or web address]-Polo tammie-P fzjmpio-klnx-Wgmcmkguh-Diseases.pdf Of course, methotrexate and Humiura should be [...] 11/10/2018 Assessment & Plan (02/13/2019 12:32 PM HOTEL DESK CLERK): An optimal BMI (body mass index) is [...] PND. Assessment & Plan (02/13/2019 12:30 PM HOTEL DESK CLERK): Vitals BP 118/82 (BP Location: Left arm, [...] regular monitoring. Labs done this week at [facility]. no s/s of med tox or infection. Encouraged to work with PCP to make sure all recommended cancer screens and vaccinations are complete. Avoid live-vaccines unless reviewed with batter mixer first. Assessment & Plan (11/19/2022 11:01 AM CDT): Long-term use of high-risk medication requiring regular monitoring. Labs ordered, no s/s of med tox or infection. Encouraged to work with PCP to make sure all recommended cancer screens and vaccinations are complete. Avoid live-vaccines unless reviewed with batter mixer first. Assessment & Plan (10/25/2021 9:07 PM CDT): Long-term use of high-risk medication requiring regular monitoring. Labs ordered, no s/s of med tox or infection. Encouraged to work with PCP to make sure all recommended cancer screens and vaccinations are complete. Avoid live-vaccines unless reviewed with batter mixer first. Assessment & Plan (2019 8:47 PM [...] written. Assessment & Plan (02/13/2019 12:29 PM HOTEL DESK CLERK): Patient on immunosuppressive medications requiring periodic lab [...] written. Assessment & Plan (12/26/2017 10:06 PM HOTEL DESK CLERK): Patient on immunosuppressive medications requiring periodic lab monitoring for drug safety. Assessment & Plan (09/05/2017 10:11 AM CDT): Patient on immunosuppressive medications requiring periodic lab monitoring for drug safety. Assessment & Plan (07/08/2017 2:10 PM CDT): Patient on immunosuppressive medications requiring periodic lab monitoring for drug safety. Update lab as per orders written. Assessment & Plan (03/23/2017 5:19 PM HOTEL DESK CLERK): Patient on immunosuppressive medications requiring periodic lab monitoring for drug safety. Update lab as per orders written. Assessment & Plan (02/08/2017 11:17 AM HOTEL DESK CLERK): Patient on immunosuppressive medications requiring periodic lab [...] update and will have them drawn at [employer] where he works. Refills provided as needed. Assessment & Plan (02/13/2019 12:41 PM HOTEL DESK CLERK): Good response to Humira (started 08/2018) without [...] Joelle Galindo MD, and reviewed by the [employer] Committee on Communications and Marketing. This information is provided for general education only. Individuals should consult a qualified health care provider for professional medical advice, diagnosis and treatment of a medical or health condition. 2017 [employer] See more at: https://www.rheumatology.org/I-Am-A/Patient-Caregiver/Treatments/TNF-Inhibitors# sthas [email or web address] Assessment & Plan (12/26/2017 10:07 PM HOTEL DESK CLERK): Patient with psoriatic arthritis present for scheduled [...] orders. Assessment & Plan (02/08/2017 11:15 AM HOTEL DESK CLERK): Psoriatic arthritis (clinically confirmed by ultrasound exam). [...] 10/06/2016 Assessment & Plan (02/13/2019 12:34 PM HOTEL DESK CLERK): Recommend return to sleep center to be [...] 02/13/2019 Assessment & Plan (02/13/2019 12:32 PM HOTEL DESK CLERK): An optimal BMI (body mass index) is between 20 and 25. Encourage weight loss. Each pound of weight lost unloads 3-4 pounds per square inch pressure from weight bearing joints. Diet and exercise are the keys to weight management. Assessment & Plan (11/20/2018 4:48 AM CDT): As above Psoriatic arthritis 10/06/2016 11/21/19 19 Assessment & Plan (12/22/2016 12:08 PM HOTEL DESK CLERK): Reviewed with patient radiographic findings of osteoarthritis [...] Nick Gayle MD and reviewed by the [employer] Committee on Communications and MarketingThis patient fact sheet is provided for general education only. Individuals should consult a qualified health care provider for professional medical advice, diagnosis and treatment of a medical or health condition. 2017 [employer] - See more at: https://www.rheumatology.org/I-Am-A/Patient-Caregiver/Treatments/Methotrexate-Rh eumat zahida-Trexall#[email or web address] Assessment & Plan (10/06/2016 3:00 PM CDT): [...] 02/13/2019 Assessment & Plan (02/13/2019 12:29 PM HOTEL DESK CLERK): An optimal BMI (body mass index) is [...] management. Assessment & Plan (03/23/2017 5:19 PM HOTEL DESK CLERK): An optimal BMI (body mass index) is between 20 and 25. Encourage weight loss. Each pound of weight lost unloads 3-4 pounds per square inch pressure from weight bearing joints. Diet and exercise are the keys to weight management. Assessment & Plan (02/08/2017 11:17 AM HOTEL DESK CLERK): An optimal BMI (body mass index) is between 20 and 25. Encourage weight loss. Each pound of weight lost unloads 3-4 pounds per square inch pressure from weight bearing joints. Diet and exercise are the keys to weight management. Assessment & Plan (12/22/2016 12:07 PM HOTEL DESK CLERK): Reinforced importance of weight loss. An optimal [...] exercise are the keys to weight management. Immunizations Immunization Administration Dates Next Due Influenza, Quadrivalent, Spl it, Preservative Free, Intramuscular 11/21/2021,11/25/2020,11/10/2018,12/02 Influenza, Unspecified 11/26/2022,12/15/2016 Moderna SARS-CoV-2 Monovalen t Vaccination (12+ YRS) 04/15/2020,03/18/2020 Pneumococcal Conjugate PCV 13 12/22/2016 Pneumococcal Polysaccharide PPV23 12/26/2017 Tdap 02/12/2018 ZOSTER Recombinant 01/07/2022,07/26/2021 Social History Tobacco Use Types Packs/Day Years [...] on file Legal Sex Male 9:08 AM HOTEL DESK CLERK Gender Identity Male 09/23/2020 7:50 PM CDT Sexual Orientation Straight 09/23/2020 7: 50 PM CDT Last Filed Vital Signs Vital Sign Reading [...] 11/22/2023 7:59 AM CDT Plan of Treatment Not on file Procedures Procedure Name Priority Date/Time Associated Diagnosis Comments HEPATITIS PANEL, ACUTE Routine 06/07/2018 10:43 AM CDT Psoriatic arthritis (CMS/HCC) from Last 3 Months or Most Recently Relevant to Health Maintenance Results * Hepatitis panel, acute (06/07/2018 10:43 AM CDT) Hep A IgM Non-Reactive Non-Reactive [facility] Hep B core IgM Non-Reactive Non-Reactive [facility] Hep C Ab Non-Reactive Non-Reactive [facility] HepBsAg Nonreactive Nonreactive [facility] Blood specimen (specimen) 06/07/2018 10:43 AM CDT 06/07/2018 2:02 PM CDT Narrative [facility] - 06/07/2018 3:19 PM CDT us Lorenzo Coyle MD LAB MICROBIOLOGY - GENERA L ORDERABLES Final Result [facility] [address] Department [place] [address] from Last 3 Months or Most Recently Relevant to Health Maintenance Insurance [facility] [id number] [facility] [id number] [place] [address] Care Teams Archery Equipment Repairer Relationship Specialty Start Date End Date Alex Chavez MD PCP - General Family Medicine 10/06/16 Lorenzo Coyle MD [address] [facility] [address] [place] [address] Consulting Physician Rheumatology 05/16/19
--- OUTSIDE RECORDS SUMMARY | 2024-04-06 09:25 | XMS_ITS | Clinical Summary ---
Author Organization [email or web address] Address [address] [place] [address] Care Team Providers Care Adjunct Professor Name Role Phone Alex Chavez MD Primary Care Provider [phone] Source Comments [email or web address],non-owned Affiliates and Associated Physician Practices is amultiple site organization consisting of ambulatory clinics and hospital sitesin [place], [place], [place] and [place]. This disclosure is being madepursuant to the Care Everywhere program and may not contain all information available regarding this patient. Last updated 17.[email or web address] Allergies No known active allergies Medications * [...] by mouth 2 times daily. Active B Efpnmpk-Uslerg-PX (SUPER B-COMPLEX) CAPS Take by mouth once [...] 07/12/2012 10:01 AM CDT Plan of Treatment Health Maintenance Due Date Last Done Comments COLOGUARD (AGES 45-75) - COLON CA SCREENING 1961 COLON MONITORING 1961 COLONOSCOPY - COLON CA SCREENING 1961 CT COLONOGRAPHY - COLON CA SCREENING 1961 Colorectal Cancer Screening 1961 FIT - COLON CA SCREENING 1961 FLEX SIG - COLON CA SCREENING 1961 HIV SCREENING 1976 HEPATITIS C SCREENING 10/11/1979 DTAP/TDAP/TD VACCINES (1 - Tdap) 1980 PNEUMOCOCCAL VACCINE 50+ (1 of 1 - PCV) 10/16/2011 ZOSTER VACCINE (1 of 2) 10/16/2011 COVID-19 VACCINE (3 - 2023- season) 2023 04/15/2020, 03/18/2020 INFLUENZA VACCINE (#1) 2023 2, 11/25/2020, 11/10/2018, Additional history exists DEPRESSION SCREENING 02/15/2024 Respiratory Syncytial Virus (RSV) Vaccine Pt: or over 60 yrs (1 - 1-dose 75+ series) 2036 HEPATITIS B VACCINE Aged Out No longe r eligible based on patient's age to complete this topic HIB VACCINE Aged Out No longer eligi ble based on patient's age to complete this topic HPV VACCINE Aged Out No longer eligi ble based on patient's age to complete this topic MENINGOCOCCAL (Group B) VACCINE Aged Out No longer eligible based on patient's age to complete this topic MENINGOCOCCAL VACCINE Aged Out No celina tracie eligible based on patient's age to complete this topic PNEUMOCOCCAL VACCINE Aged Out No long er eligible based on patient's age to complete this topic Medical Devices Implanted Type Area Shell Reprint Operator Device Identifier Shelf Expiration Date Model / Serial / Lot Screw Implanted:Qty: 2 on 04/25/2012 by Remington Ortiz MD at [facility] N/A: [employer] [id number] / / Screws Implanted:Qty: 4 on 04/25/2012 by Remington Ortiz MD at [facility] [employer] [id number] / / Screw Implanted:Qty: 1 on 04/25/2012 at [facility] [employer] [id number] / / Screws Implanted:Qty: 2 on 04/25/2012 by Remington Ortiz MD at [facility] [employer] [id number] / / Praneeth Implanted:Qty: 1 on 04/25/2012 by Remington Ortiz MD at [facility] N/A: Neck [employer] [id number] / / Set Screws Implanted:Qty: 10 on 04/25/2012 by Remington Ortiz MD at [facility] N/A: Neck [id number] / / Putty Brady-3 Dbm 10cc Implanted:Qty: 1 on 04/25/2012 at [facility] Neck [employer] 01/14/2013-10 0 / / [id number] Description:in or record to add lot#, TB Peek Implanted:Qty: 1 on 04/25/2012 by Remington Ortiz MD at [facility] N/A: Neck [employer] [id number] / / [id number] Peek Implanted:Qty: 1 on 04/25/2012 at [facility] [employer] [id number] / / [id number] Peek Implanted:Qty: 1 on 04/25/2012 by Remington Ortiz MD at [facility] [employer] [id number] / / [id number] Screws Implanted:Qty: 8 on 04/25/2012 by Remington Ortiz MD at [facility] [employer] [id number] 07 / / Plate Implanted:Qty: 1 on 04/25/2012 by Remington Ortiz MD at [facility] [employer] 07.97832.0 06 / / Screws Implanted:Qty: 2 on 04/25/2012 at [facility] [employer] [id number]. 003 / / Screws Implanted:Qty: 1 on 04/25/2012 by Remington Ortiz MD at [facility] [employer] [facility] [id number] / / Advance Directives * FULL RESUSCITATION (Latest Code Status on File) Date Activated Date Inactivated Comments 04/26/2012 12:34 AM 04/28/2012 2:39 PM * FULL RESUSCITATION Date Activated Date Inactivated Comments 04/25/2012 10:37 PM 04/26/2012 12:34 AM Care Teams Adjunct Professor Relationship Specialty Start Date End Date Alex Chavez MD [address] [id number] PCP - General Family Medicine 04/25/12
--- OUTSIDE RECORDS SUMMARY | 2024-04-06 09:25 | XMS_ITS | Encounter Summary ---
Author Organization [facility] Address [address] [place] [address] Care Team Providers Care Rural Mail Contractor Name Role Phone Unknown, Provider Primary Care Provider Alex Christie MD Primary Care Provider [phone]- [phone] Encounter Details Date Type Department Care Team (Late st Contact Info) Description 03/22/2012 [facility] [place] [place] [address] [place] [address] Social History Tobacco Use Types Packs/Day Years Used Date Smoking Tobacco: Never Smokeless Tobacco: Never Alcohol Use Standard Drinks/Week Comments Yes 0 (1 standard drink = 0.6 oz pur e alcohol) rarely Sex and Gender Information Value Date Recorded Sex Assigned at Not on file Gender Identity Not on file Sexual Orientation Not on file documented as of this encounter Plan of Treatment Not on file documented as of this encounter Visit Diagnoses Not on filedocumented in this encounter Care Teams Rural Mail Contractor Relationship Specialty Start Date End Date Unknown, Provider PCP - General Family Medicine 02/23/12 04/24/12 Alex Chavez MD [address] [address] PCP - General Family Medicine 04/25/12 documented as of this encounter
[2024-04-06 09:29] LABS: Basophils Absolute Auto 0.1 K/mm3 (0.0-0.1); Basophils Percent Auto 1.3 % (0.2-1.2); Eosinophils Absolute Auto 0.1 K/mm3 (0-0.3); Eosinophils Percent Auto 2.6 % (0-4.4); Hematocrit 49.3 % (42.0-52.0); Hemoglobin 16.8 g/dL (14.0-18.0); Immature Granulocyte Absolute 0.02 K/mm3 (0.00-0.031); Immature Granulocyte Percent A 0.4 % (0-0.5); Lymphocytes Absolute Auto 1.77 K/mm3 (0.9-3.2); Lymphocytes Percent Auto 32.5 % (18.3-44.2); Mean Corpuscular HGB Conc 34.1 g/dl (32-36); Mean Corpuscular Volume 93.9 fl (80-100); Mean Platelet Volume 9.5 fl (7.4-10.4); Monocytes Absolute Auto 0.4 K/mm3 (0.1-0.6); Monocytes Percent Auto 7.5 % (2.6-8.5); Neutrophils Percent Auto 55.7 % (45.5-73.1); Platelet Count Result 176 k/mm3 (150-375); Red Blood Count 5.25 M/mm3 (4.6-6.20); Red Cell Distribution Width 12.4 % (11.5-14.5); White Blood Count 5.4 K/mm3 (4.5-10.0)
[2024-04-06 09:47] LABS: Alanine Aminotransferase 27 U/L (6-50); Albumin Level 4.8 g/dL (3.5-5.1); Alkaline Phosphatase 79 U/L (38-126); Anion Gap 9 mmol/L (4-12); Aspartate Amino Transferase 26 U/L (17-59); Bilirubin,Total 0.6 mg/dL (0.2-1.3); Blood Urea Nitrogen 16 mg/dL (9-20); CRP 0.7 mg/dL (<1.0); Calcium 9.5 mg/dL (8.4-10.2); Carbon Dioxide 30 mmol/L (22-30); Chloride 101 mmol/L (98-107); Cholesterol 248 mg/dL (0-200); Estimated Glomerular Filt Rate > 60; Glucose 112 mg/dL (65-110); HDL Direct 58 mg/dL; Potassium 4.4 mmol/L (3.4-5.0); Sodium 140 mmol/L (137-145); Triglycerides 120 mg/dL (<150)
[2024-04-06 09:59] LABS: LDL Cholesterol Direct 156 mg/dL; Vitamin D 25 Hydroxy 70.2 ng/mL
[2024-04-06 10:16] LABS: Prostate Specific Antigen 1.1 ng/mL (< OR = 4.0)
[2024-04-06 10:26] LABS: Hemoglobin A1C 5.3 % (<5.7)
[2024-04-06 10:40] LABS: Erythrocyte Sedimentation Rate 1 mm/hr (0-20)
[2024-04-07 06:18] LABS: Sex Hormone Binding Globulin 33 nmol/L (22-77)
[2024-04-12 03:53] LABS: Testosterone Total 378 ng/dL (250-1100)
== END 2024-04-06 08:55 | disposition home or self-care (01) ==
DX: R53.83 Other fatigue (principal); R73.9 Hyperglycemia, unspecified; D51.9 Vitamin B12 deficiency anemia, unspecified; E55.9 Vitamin D deficiency, unspecified; Z12.5 Encounter for screening for malignant neoplasm of prostate; E78.5 Hyperlipidemia, unspecified; E83.42 Hypomagnesemia
CPT/HCPCS: 36415; 80053; 80061; 82306; 82607; 83036; 83735; 84153; 84270; 84403; 84443; 85025; 85652; 86140

== ENCOUNTER 2024-08-16 16:09 | Outpatient (CLI) | payer OTHER, SELFPAY ==
--- NOTE | ~2024-08-16 | XR_ITS ---
EXAM: XR abdomen/kub 1V DATE: 08/16/2024 16:34 HISTORY: Kidney stone . COMPARISON: 05/10/2019; CT abdomen pelvis 07/11/2018. FINDINGS: Enlarged liver. Normal bowel gas pattern. Mild lumbar scoliosis. Degenerative changes in t he spine and bilateral hips. Punctate calcifications over the bilateral renal shadows. 3 mm calcifica tion to the right of the L4-5 disc space. IMPRESSION: Hepatomegaly. Punctate bilateral nephroliths. 3 mm calcification in the right at L4-5, ma y represent a ureteral stone versus artifact. Consider CT of the abdomen and pelvis for further evalu ation. Reviewed, dictated and finalized at location [facility]. IMPRESSION: Hepatomegaly. Punctate bilateral nephroliths. 3 mm calcification in the right at L4-5, may represent a ureteral stone versus artifact. Consider CT of the abdomen and pelvis for further evaluation.
--- OUTSIDE RECORDS SUMMARY | 2024-08-16 16:14 | XMS_ITS | Clinical Summary ---
Author Organization [facility] Address [address] [place] [address] Care Team Providers Care Justice Court Judge Name Role Phone Alex Chavez MD Primary Care Provider [phone] [facility],non-owned Affiliates and Associated Physician Practices is amultiple site organization consisting of ambulatory clinics and hospital sitesin [place], [place], [place] and [place]. This disclosure is being madepursuant to the Care Everywhere program and may not contain all information available regarding this patient. Last updated 17.[facility] Allergies No known active allergies Medications * Be aware that medications may not be up to date on this document. Alwaysverify current medications with the patient. pantoprazole EC (PROTONIX) 40 MG tablet Take 40 mg by mouth 2 times daily. Active vilazodone (VIIBRYD) 40 MG tablet Take 40 mg by mouth daily with breakfast. Active topiramate (TOPAMAX) 100 MG tablet Take 100 mg by mouth 2 times daily. Active B Pykqbkb-Xhzklv-B A (SUPER B-COMPLEX) CAPS Take by mouth once daily. Active diazepam (VALIUM) 5 MG tablet Take 1 Tab by mouth 3 times daily as needed for Spasms. 30 Tab 0 04/28/2012 Active rosuvastatin (CRESTOR) 10 MG tablet 1 Tab once daily. Active Nerve Stimulator (EMJOI TENS) TIMOTHY Use 1 Device as needed. 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 Gender Identity Not on file Sexual Orientation [...] of 2) 10/16/2011 COVID-19 VACCINE (3 - season) 2023 04/15/2020, 03/18/2020 DEPRESSION SCREENING 02/15/2024 INFLUENZA VACCINE (Season Ended) 2024 11/21/2021, 11/25/2020, 11/10/2018, Additional history exists Respiratory Syncytial Virus (RSV) Vaccine Pt: or [...] complete this topic MENINGOCOCCAL (Group B) VACCINE SHARED DECISION-MAKING Aged Out No longer eligible based on patient's age to complete this topic MENINGOCOCCAL GROUPS A/C/Y/W VACCINE Aged Out No longer eligible based on patient's age to complete this topic Medical Devices Implanted Type Area Report Developer Device Identifier Shelf Expiration Date Model / Serial / Lot Screw Implanted:Qty: 2 on 04/25/2012 by Remington Ortiz MD at [facility] N/A: [employer] [id number] / / Screws Implanted:Qty: 4 on 04/25/2012 by Remington Ortiz MD at [facility] [employer] [id number] / / Screw Implanted:Qty: 1 on 04/25/2012 at [facility] [employer] [id number] / / Screws Implanted:Qty: 2 on 04/25/2012 by Remington Ortiz MD at [facility] [employer] [id number] / / Praneeth Implanted:Qty: 1 on 04/25/2012 by Remington Ortiz MD at [facility] N/A: Neck [employer] [id number] / / Set Screws Implanted:Qty: 10 on 04/25/2012 by Remington Ortiz MD at [facility] N/A: Neck [id number] / / Putty Brady-3 Dbm 10cc Implanted:Qty: 1 on 04/25/2012 at [facility] Neck [employer] 01/14/2013 02-5000-10 0 / / [id number] Description:in or record to add lot#, TB Peek Implanted:Qty: 1 on 04/25/2012 by Remington Ortiz MD at [facility] N/A: Neck [employer] [id number] / / [id number] Peek Implanted:Qty: 1 on 04/25/2012 at [facility] [employer] [id number] / / [id number] Peek Implanted:Qty: 1 on 04/25/2012 by Remington Ortiz MD at [facility] [employer] [id number] / / [id number] Screws Implanted:Qty: 8 on 04/25/2012 by Remington Ortiz MD at [facility] [employer] [id number] 07 / / Plate Implanted:Qty: 1 on 04/25/2012 by Remington Ortiz MD at [facility] [employer] 07.07540.0 06 / / Screws Implanted:Qty: 2 on 04/25/2012 at [facility] [employer] [id number]. 003 / / Screws Implanted:Qty: 1 on 04/25/2012 by Remington Ortiz MD at [facility] [employer] [facility] [id number] / / Insurance * Guarantor: Pablo Sterling Account Type Relation to Patient Date of Phone Billing Address Personal/Family Self 1960 [phone] (Work) [address] [place], [place] [id number] [facility] [phone] (Work) [address] [place] [phone] [facility] Advance Directives * FULL RESUSCITATION (Latest Code Status on File) Date Activated Date Inactivated Comments 04/26/2012 12:34 AM 04/28/2012 2:39 PM * FULL RESUSCITATION Date Activated Date Inactivated Comments 04/25/2012 10:37 PM 04/26/2012 12:34 AM Care Teams Justice [address] Judge Relationship Specialty Start Date End Date Alex Chavez MD [address] [address] PCP - General Family Medicine 04/25/12
--- OUTSIDE RECORDS SUMMARY | 2024-08-16 16:14 | XMS_ITS | Referral Summary ---
Author Organization [facility] Address [address] [place] [phone] Care Team Providers Care Second Facing Baster Name Role Phone Alex Chavez MD Primary Care Provider Lorenzo Coyle MD Unavailable [phone] Encounters Date Type Department Care Team Description 05/22/2024 9:15 AM CDT Office Visit [facility] Rheumatology at [facility] [address] [place] [address] Rosa Isela Arthur MD Polyarticular psoriatic arthritis (HCC) (Primary Dx); Encounter for long-term (current) use of high-risk medication; Class 1 obesity with body mass index (BMI) of 33.0 to 33.9 in adult, unspecified obesity type, unspecified whether serious comorbidity present from Last 3 Months Allergies No known [...] 1 dose 0.3 mL 2 023 Active dextroamphetamine -amphetamine XR (ADDERALL XR) 30 mg 24 hr capsule Take 2 capsules (60 mg total) by mouth every morning Active butalbital-acetam inophen-caffeine (FIORICET) 50-300-40 mg per capsule Take 1 capsule by mouth every 4 (four) hours as needed Active abatacept (Orencia ClickJect) 125 mg/mL auto-injector Take 1 pen weekly subcutaneously 4 mL Active Additional Information Patient not taking.Reported on 05/22/2024 methotrexate 2.5 mg tabletIndications :Primary osteoarthritis involving multiple joints TAKE 10 TABLETS BY MOUTH EVERY 7 DAYS. 120 tablet 2 025 Active lisdexamfetamine (VYVANSE) 50 mg capsule TAKE 2 CAPSULES BY MOUTH IN THE MORNING Active meloxicam (MOBIC) 15 mg tablet TAKE 1 TABLET (15 MG TOTAL) BY MOUTH DAILY. 30 tablet 2 025 2025 Active meloxicam (MOBIC) 15 mg tablet TAKE 1 TABLET (15 MG TOTAL) BY MOUTH DAILY. 30 tablet 2 025 2024 Discontinued Active Problems Problem Noted Date [...] to see if this improves your symptoms. [facility] (current) use of n on-steroidal anti-inflammatories (nsaid) [...] or kidney issues. Take care when using lrwf-ktx-owrvepu medications as some also contain NSAIDs. The most common uszx-uav-xpuxfin NSAIDs include naproxen and ibuprofen. Make sure [...] given about 2019 novel coronavirus by tel carolone 05/16/2019 Assessment & Plan (2019 8:46 PM CDT): You may review the current [place] [employer] Covid-19 clinical guidance for Patients with Rheumatic Diseases if you copy and paste the link below into your web browser: [email or web address] [email or web address] Of course, methotrexate and Humiura should be [...] 11/10/2018 Assessment & Plan (02/13/2019 12:32 PM MANAGER CUSTOMER): An optimal BMI (body mass index) is [...] (97.3 F) (Oral) Ht 180.3 cm (5' 10.98) Wt 109.8 kg (242 lb) BMI 33.77 kg/m Mild hypertension noted. Patient advised to monitor per home cuff and report to Dr. Chavez if still elevated. Denies headache, dizziness, chest pain, palpitations, shortness of breath, edema, orthopnea, PND. Assessment & Plan (02/13/2019 12:30 PM MANAGER CUSTOMER): Vitals BP 118/82 (BP Location: Left arm, Patient Position: Sitting) Pulse 72 Temp 36.7 C (98.1 F) (Oral) Resp 18 Ht 180.3 cm (5' 10.98) Wt 109.8 kg (242 lb) BMI 33.77 kg/m Denies headache, dizziness, chest pain, palpitations, shortness of breath, edema, orthopnea, PND. Assessment & Plan (08/07/2018 3:36 PM CDT): Vitals BP 132/86 (BP Location: Right arm, Patient Position: Sitting) Pulse 88 Temp 36.8 C (98.3 F) (Oral) Resp 18 Ht 180.3 cm (5' 10.98) Wt 110.2 kg (243 lb) BMI 33.91 kg/m Denies headache, dizziness, chest pain, palpitations, shortness of breath, edema, orthopnea, PND. Assessment & Plan (06/07/2018 10:27 AM CDT): Vitals BP 118/82 (BP Location: Left arm, Patient Position: Sitting) Pulse 76 Temp 36.7 C (98 F) (Oral) Resp 20 Ht 180.3 cm (5' 10.98) Wt 109.8 kg (242 lb) BMI 33.77 [...] regular monitoring. Labs done this week at [facility]. no s/s of med tox or infection. Encouraged to work with PCP to make sure all recommended cancer screens and vaccinations are complete. Avoid live-vaccines unless reviewed with nib finisher first. Assessment & Plan (11/19/2022 11:01 AM CDT): Long-term use of high-risk medication requiring regular monitoring. Labs ordered, no s/s of med tox or infection. Encouraged to work with PCP to make sure all recommended cancer screens and vaccinations are complete. Avoid live-vaccines unless reviewed with nib finisher first. Assessment & Plan (10/25/2021 9:07 PM CDT): Long-term use of high-risk medication requiring regular monitoring. Labs ordered, no s/s of med tox or infection. Encouraged to work with PCP to make sure all recommended cancer screens and vaccinations are complete. Avoid live-vaccines unless reviewed with nib finisher first. Assessment & Plan (2019 8:47 PM [...] written. Assessment & Plan (02/13/2019 12:29 PM MANAGER CUSTOMER): Patient on immunosuppressive medications requiring periodic lab [...] written. Assessment & Plan (12/26/2017 10:06 PM MANAGER CUSTOMER): Patient on immunosuppressive medications requiring periodic lab monitoring for drug safety. Assessment & Plan (09/05/2017 10:11 AM CDT): Patient on immunosuppressive medications requiring periodic lab monitoring for drug safety. Assessment & Plan (07/08/2017 2:10 PM CDT): Patient on immunosuppressive medications requiring periodic lab monitoring for drug safety. Update lab as per orders written. Assessment & Plan (03/23/2017 5:19 PM MANAGER CUSTOMER): Patient on immunosuppressive medications requiring periodic lab monitoring for drug safety. Update lab as per orders written. Assessment & Plan (02/08/2017 11:17 AM MANAGER CUSTOMER): Patient on immunosuppressive medications requiring periodic lab [...] update and will have them drawn at [facility] where he works. Refills provided as needed. Assessment & Plan (02/13/2019 12:41 PM MANAGER CUSTOMER): Good response to Humira (started 08/2018) without [...] Joelle Galindo MD, and reviewed by the [place] [employer] Committee on Communications and Marketing. This information is provided for general education only. Individuals should consult a qualified health care provider for professional medical advice, diagnosis and treatment of a medical or health condition. 2017 [place] [employer] See more at: [email or web address] Assessment & Plan (12/26/2017 10:07 PM MANAGER CUSTOMER): Patient with psoriatic arthritis present for scheduled [...] orders. Assessment & Plan (02/08/2017 11:15 AM MANAGER CUSTOMER): Psoriatic arthritis (clinically confirmed by ultrasound exam). [...] 10/06/2016 Assessment & Plan (02/13/2019 12:34 PM MANAGER CUSTOMER): Recommend return to sleep center to be [...] 02/13/2019 Assessment & Plan (02/13/2019 12:32 PM MANAGER CUSTOMER): An optimal BMI (body mass index) is between 20 and 25. Encourage weight loss. Each pound of weight lost unloads 3-4 pounds per square inch pressure from weight bearing joints. Diet and exercise are the keys to weight management. Assessment & Plan (11/20/2018 4:48 AM CDT): As above Psoriatic arthritis 10/06/2016 11/21/19 19 Assessment & Plan (12/22/2016 12:08 PM MANAGER CUSTOMER): Reviewed with patient radiographic findings of osteoarthritis [...] Nick Gayle MD and reviewed by the [place] [employer] Committee on Communications and MarketingThis patient fact sheet is provided for general education only. Individuals should consult a qualified health care provider for professional medical advice, diagnosis and treatment of a medical or health condition. 2017 [place] [employer] - See more at: [...] 02/13/2019 Assessment & Plan (02/13/2019 12:29 PM MANAGER CUSTOMER): An optimal BMI (body mass index) is [...] management. Assessment & Plan (03/23/2017 5:19 PM MANAGER CUSTOMER): An optimal BMI (body mass index) is between 20 and 25. Encourage weight loss. Each pound of weight lost unloads 3-4 pounds per square inch pressure from weight bearing joints. Diet and exercise are the keys to weight management. Assessment & Plan (02/08/2017 11:17 AM MANAGER CUSTOMER): An optimal BMI (body mass index) is between 20 and 25. Encourage weight loss. Each pound of weight lost unloads 3-4 pounds per square inch pressure from weight bearing joints. Diet and exercise are the keys to weight management. Assessment & Plan (12/22/2016 12:07 PM MANAGER CUSTOMER): Reinforced importance of weight loss. An optimal [...] it, Preservative Free, Intramuscular 11/21/2021,11/25/2020,11/10/2018,12/02 Influenza, Unspecified 11/15/2023,11/26/2022,02/2016 Moderna SARS-CoV-2 Monovalen t Vaccination (12+ YRS) [...] you have a drink containing alc ohol? Monthly or less 05/22/2024 Q2: How many drinks containi ng alcohol do you have on a typical day when you are drinking? 1 or 2 05/22/2024 Q3: How often do you have si x or more drinks on one occasion? Never 05/22/2024 PHQ-2 Answer Date Recorded PHQ-2 Score 0 10/06/2018 Sex and Gender Information Value Date Recorded Sex Assigned at Not on file Legal Sex Male 9:08 AM MANAGER CUSTOMER Gender Identity Male 09/23/2020 7:50 PM CDT Sexual Orientation Straight 09/23/2020 7: 50 PM CDT Last Filed Vital Signs Vital Sign Reading Time Taken Comments Blood Pressure 132/84 05/22/2024 9:16 AM CDT Pulse 56 05/22/2024 9:16 AM CDT Temperature 37 C (98.6 F) 05/22/2024 9:16 AM CDT Respiratory Rate 16 11/22/2023 7:59 AM CDT Oxygen Saturation 96% 05/22/2024 9:16 AM CDT Inhaled Oxygen Concentration - - Weight 107.1 kg (236 lb 1.6 oz) 05/22/2024 9:16 AM CDT Height 177.8 cm (5' 10) 05/22/2024 9:16 AM CDT Body Mass Index 33.88 05/22/2024 9:16 AM CDT Plan of Treatment Not on file Procedures Procedure Name Priority Date/Time Associated Diagnosis Comments HEPATITIS PANEL, ACUTE Routine 06/07/2018 10:43 AM CDT Psoriatic arthritis (HCC) from Last 3 Months or Most Recently Relevant to Health Maintenance Results * Hepatitis panel, acute (06/07/2018 10:43 AM CDT) Hep A IgM Non-Reactive Non-Reactive [facility] Hep B core IgM Non-Reactive Non-Reactive [facility] Hep C Ab Non-Reactive Non-Reactive [facility] HepBsAg Nonreactive Nonreactive [facility] Blood specimen (specimen) 06/07/2018 10:43 AM CDT 06/07/2018 2:02 PM CDT Narrative [facility] - 06/07/2018 3:19 PM CDT Lorenzo Coyle MD LAB MICROBIOLOGY - GENERA L ORDERABLES Final Result [facility] [address] [place] [address] from Last 3 Months or Most Recently Relevant to Health Maintenance Insurance [facility]/PPO Address: [facility] [address] [place] [address] [facility]/PPO Address: [address] [place] [phone] [facility] [place] Care Teams Second Facing Baster Relationship Specialty Start Date End Date Alex Chavez MD PCP - General Family Medicine 10/06/16 Lorenzo Coyle MD [address] [place] [address] Consulting Physician Rheumatology 05/16/19
--- OUTSIDE RECORDS SUMMARY | 2024-08-16 16:14 | XMS_ITS | Clinical Summary ---
Author Organization [facility] D Address [address] [place] [address] Care Team Providers Care Audio/Video Engineer Name Role Phone Alex Chavez MD Primary [...] MOUTH EVERY 7 DAYS. 120 tablet 2 Active lisdexamfetamine (VYVANSE) 50 mg capsule TAKE [...] to see if this improves your symptoms. [facility] (current) use of n on-steroidal anti-inflammatories (nsaid) [...] or kidney issues. Take care when using zsbw-gvp-sknystu medications as some also contain NSAIDs. The most common rsyh-wsf-pxlvgie NSAIDs include naproxen and ibuprofen. Make sure [...] PM CDT): You may review the current [employer] Covid-19 clinical guidance for Patients with Rheumatic Diseases if you copy and paste the link below into your web browser: https://www.rheumatology.org/Portals/0/Files/IUA-FWZPA-68-Rksruxwt-Rawtasvr-Sgar tammie-P wvnludn-qble-Pnesrmbdu-Diseases.pdf Of course, methotrexate and Humiura should be [...] 11/10/2018 Assessment & Plan (02/13/2019 12:32 PM COMPLAINT EVALUATION SUPERVISOR): An optimal BMI (body mass index) is [...] PND. Assessment & Plan (02/13/2019 12:30 PM COMPLAINT EVALUATION SUPERVISOR): Vitals BP 118/82 (BP Location: Left arm, [...] regular monitoring. Labs done this week at [place]. no s/s of med tox or infection. Encouraged to work with PCP to make sure all recommended cancer screens and vaccinations are complete. Avoid live-vaccines unless reviewed with cook night first. Assessment & Plan (11/19/2022 11:01 AM CDT): Long-term use of high-risk medication requiring regular monitoring. Labs ordered, no s/s of med tox or infection. Encouraged to work with PCP to make sure all recommended cancer screens and vaccinations are complete. Avoid live-vaccines unless reviewed with cook night first. Assessment & Plan (10/25/2021 9:07 PM CDT): Long-term use of high-risk medication requiring regular monitoring. Labs ordered, no s/s of med tox or infection. Encouraged to work with PCP to make sure all recommended cancer screens and vaccinations are complete. Avoid live-vaccines unless reviewed with cook night first. Assessment & Plan (2019 8:47 PM [...] written. Assessment & Plan (02/13/2019 12:29 PM COMPLAINT EVALUATION SUPERVISOR): Patient on immunosuppressive medications requiring periodic lab [...] written. Assessment & Plan (12/26/2017 10:06 PM COMPLAINT EVALUATION SUPERVISOR): Patient on immunosuppressive medications requiring periodic lab monitoring for drug safety. Assessment & Plan (09/05/2017 10:11 AM CDT): Patient on immunosuppressive medications requiring periodic lab monitoring for drug safety. Assessment & Plan (07/08/2017 2:10 PM CDT): Patient on immunosuppressive medications requiring periodic lab monitoring for drug safety. Update lab as per orders written. Assessment & Plan (03/23/2017 5:19 PM COMPLAINT EVALUATION SUPERVISOR): Patient on immunosuppressive medications requiring periodic lab monitoring for drug safety. Update lab as per orders written. Assessment & Plan (02/08/2017 11:17 AM COMPLAINT EVALUATION SUPERVISOR): Patient on immunosuppressive medications requiring periodic lab [...] update and will have them drawn at [facility] where he works. Refills provided as needed. Assessment & Plan (02/13/2019 12:41 PM COMPLAINT EVALUATION SUPERVISOR): Good response to Humira (started 08/2018) without [...] Joelle Galindo MD, and reviewed by the [employer] Committee on Communications and Marketing. This information is provided for general education only. Individuals should consult a qualified health care provider for professional medical advice, diagnosis and treatment of a medical or health condition. 2017 [employer] See more at: https://www.rheumatology.org/I-Am-A/Patient-Caregiver/Treatments/TNF-Inhibitors# sthas [email or web address].dpuf Assessment & Plan (12/26/2017 10:07 PM COMPLAINT EVALUATION SUPERVISOR): Patient with psoriatic arthritis present for scheduled [...] orders. Assessment & Plan (02/08/2017 11:15 AM COMPLAINT EVALUATION SUPERVISOR): Psoriatic arthritis (clinically confirmed by ultrasound exam). [...] 10/06/2016 Assessment & Plan (02/13/2019 12:34 PM COMPLAINT EVALUATION SUPERVISOR): Recommend return to sleep center to be [...] 02/13/2019 Assessment & Plan (02/13/2019 12:32 PM COMPLAINT EVALUATION SUPERVISOR): An optimal BMI (body mass index) is between 20 and 25. Encourage weight loss. Each pound of weight lost unloads 3-4 pounds per square inch pressure from weight bearing joints. Diet and exercise are the keys to weight management. Assessment & Plan (11/20/2018 4:48 AM CDT): As above Psoriatic arthritis 10/06/2016 11/21/19 19 Assessment & Plan (12/22/2016 12:08 PM COMPLAINT EVALUATION SUPERVISOR): Reviewed with patient radiographic findings of osteoarthritis [...] Nick Gayle MD and reviewed by the [employer] Committee on Communications and MarketingThis patient fact sheet is provided for general education only. Individuals should consult a qualified health care provider for professional medical advice, diagnosis and treatment of a medical or health condition. 2017 [employer] - See more at: [...] 02/13/2019 Assessment & Plan (02/13/2019 12:29 PM COMPLAINT EVALUATION SUPERVISOR): An optimal BMI (body mass index) is [...] management. Assessment & Plan (03/23/2017 5:19 PM COMPLAINT EVALUATION SUPERVISOR): An optimal BMI (body mass index) is between 20 and 25. Encourage weight loss. Each pound of weight lost unloads 3-4 pounds per square inch pressure from weight bearing joints. Diet and exercise are the keys to weight management. Assessment & Plan (02/08/2017 11:17 AM COMPLAINT EVALUATION SUPERVISOR): An optimal BMI (body mass index) is between 20 and 25. Encourage weight loss. Each pound of weight lost unloads 3-4 pounds per square inch pressure from weight bearing joints. Diet and exercise are the keys to weight management. Assessment & Plan (12/22/2016 12:07 PM COMPLAINT EVALUATION SUPERVISOR): Reinforced importance of weight loss. An optimal [...] Description 05/22/2024 9:15 AM CDT Office Visit [facility] Medical [facility] Rheumatology at [facility] [address] [address] Rosa Isela Arthur MD Polyarticular psoriatic arthritis (HCC) (Primary Dx); Encounter for long-term (current) use of high-risk medication; Class 1 obesity with body mass index (BMI) of 33.0 to 33.9 in adult, unspecified obesity type, unspecified whether serious comorbidity present from Last 3 Months Immunizations Immunization Administration [...] on file Legal Sex Male 9:08 AM COMPLAINT EVALUATION SUPERVISOR Gender Identity Male 09/23/2020 7:50 PM CDT [...] 05/22/2024 9:16 AM CDT Plan of Treatment Health Maintenance Due Date Last Done Comments Colon Cancer Screening-Colonoscopy 1960 Prostate Cancer Screening-PSA 1960 Hepatitis B Screening 10/16/1979 Regular Well Visit/Exam 18-64 10/16/1979 Depression Screening 12/26/2018 12/26/2017 Covid-19 Vaccine (3 - Modern a risk series) 05/13/2020 04/15/2020, 03/18/2020 Pneumococcal vaccine <65 (3 of 3 - PPSV23, PCV20 or PCV21) 12/26/2022 12/26/2017, 12/22/2016 Influenza Vaccine (#1) 2024 , 11/26/2022, 11/21/2021, Additional history exists DTaP/Tdap/Td Vaccine (2 - [...] AM CDT) Hep A IgM Non-Reactive Non-Reactive [facility] Hep B core IgM Non-Reactive Non-Reactive [facility] Hep C Ab Non-Reactive Non-Reactive [facility] HepBsAg Nonreactive Nonreactive [facility] Blood specimen (specimen) 06/07/2018 10:43 AM CDT 06/07/2018 2:02 PM CDT Narrative [facility] - 06/07/2018 3:19 PM CDT Lorenzo Coyle MD LAB MICROBIOLOGY - GENERA L ORDERABLES Final Result Performing Organization Address City/State/[facility] Co de Phone Number [facility] [address] Department [place] [address] from Last 3 Months or Most Recently Relevant to Health Maintenance Insurance [employer] [facility] H[facility]/PPO Address: [address] [phone] [facility]/PPO Address: [address] [phone] [id number] [place] [address] [place] Care Teams Audio/Video Engineer Relationship Specialty Start Date End Date Alex Chavez MD PCP - General Family Medicine 10/06/16 Lorenzo Coyle MD [address] [facility] [address] [place] [address] Consulting Physician Rheumatology 05/16/19
--- OUTSIDE RECORDS SUMMARY | 2024-08-16 16:14 | XMS_ITS | Encounter Summary ---
Author Organization [facility] Health Address [address] [place] [address] Care Team Providers Care Rehabilitation Inspector Name Role Phone Unknown, Provider Primary Care Provider Alex Christie MD Primary Care Provider [phone] Encounter Details Date Type Department Care Team (Late st Contact Info) Description 03/22/2012 [facility] [place]NAL [place] [address] [place] [address] Social History Tobacco Use Types Packs/Day Years Used Date Smoking Tobacco: Never Smokeless Tobacco: Never Alcohol Use Standard Drinks/Week Comments Yes 0 (1 standard drink = 0.6 oz pur e alcohol) rarely Sex and Gender Information Value Date Recorded Sex Assigned at Not on file 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
== END 2024-08-16 16:10 | disposition home or self-care (01) ==
PROVIDERS: Visit Provider Urology
DX: N20.0 Calculus of kidney (principal); R16.0 Hepatomegaly, not elsewhere classified
CPT/HCPCS: 74018

== ENCOUNTER 2024-09-20 15:04 | Outpatient (CLI) | payer OTHER, SELFPAY ==
--- OUTSIDE RECORDS SUMMARY | 2024-09-20 15:09 | XMS_ITS | Encounter Summary ---
Author Organization [facility] Health Address [address] [place] [address] Care Team Providers Care Case Work Aide Name Role Phone Unknown, Provider Primary Care Provider Alex Christie MD Primary Care Provider [phone] Encounter Details Date Type Department Care Team (Late st Contact Info) Description 03/22/2012 [facility] [place] [address] [place] [address] Social History Tobacco Use Types Packs/Day Years Used Date Smoking Tobacco: Never Smokeless Tobacco: Never Alcohol Use Standard Drinks/Week Comments Yes 0 (1 standard drink = 0.6 oz pur e alcohol) rarely Sex and Gender Information Value Date Recorded Sex Assigned at Not on file 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
--- OUTSIDE RECORDS SUMMARY | 2024-09-20 15:09 | XMS_ITS | Encounter Summary ---
Author Organization [facility] Healthcare Address [address] [place] [address] Care Team Providers Care Investigation Officer Name Role Phone Alex Chavez MD Primary Care Provider Lorenzo Coyle MD Unavailable [phone] Encounter Details Date Type Department Care Team (Late st Contact Info) Description 04/06/2024 Orders Only [facility] Information Management [address] [place] [id number] Scanning, Provider Social History Tobacco Use Types Packs/Day Years Used Date Smoking Tobacco: Never Smokeless Tobacco: Never Alcohol Use Standard Drinks/Week Comments No 0 [...] on file Legal Sex Male 9:08 AM [employer] Gender Identity Male 09/23/2020 7:50 PM CDT Sexual Orientation Straight 09/23/2020 7: 50 PM CDT documented as of this encounter Plan of Treatment Not on file documented as of this encounter Procedures Procedure Name Priority Date/Time Associated Diagnosis Comments SCAN - LABS 04/06/2024 documented in this encounter Results * SCAN - LABS (04/06/2024) us Provider Scanning Final Result documented in this encounter Visit Diagnoses Not on filedocumented in this encounter Care Teams Investigation Officer Relationship Specialty Start Date End Date Alex Chavez MD PCP - General Family Medicine 10/06/16 Lorenzo Coyle MD [address] [facility] [address] [place] [address] Consulting Physician Rheumatology 05/16/19 documented as of this encounter
--- OUTSIDE RECORDS SUMMARY | 2024-09-20 15:09 | XMS_ITS | Clinical Summary ---
Author Organization [facility] D Address [address] [place] [address] Care Team Providers Care Stage Set Designer Name Role Phone Alex Chavez MD Primary Care Provider [phone] Lorenzo Coyle MD Unavailable [phone] Allergies No known active allergies Medications pantoprazole DR (PROTONIX) 40 mg EC tablet Take 1 tablet (40 mg total) by mouth daily Active b complex vitamins capsule Take 1 capsule by mouth daily Active atenolol (TENORMIN) 25 mg tablet Take 1 tablet (25 mg total) by mouth daily Active levomefolate-algal oil 15-90.314 mg capsule Take by mouth Active diazePAM (VALIUM) 10 mg tablet Take 1 tablet (10 mg total) by mouth every 6 (six) hours as needed for muscle spasms As needed Active EPINEPHrine 0.3 mg/0.3 mL auto-injection syringeIndications :Anaphylaxis Inject 0.3 mL (0.3 mg total) into the muscle as instructed once for 1 dose 0.3 mL 2 05/22/19 23 Active dextroamphetamine- amphetamine XR (ADDERALL XR) 30 mg 24 hr capsule Take 2 capsules (60 mg total) by mouth every morning 10/27/19 24 Active butalbital-acetami nophen-caffeine (FIORICET) 50-300-40 mg per capsule Take 1 capsule by mouth every 4 (four) hours as needed 10/26/19 24 Active abatacept (Orencia ClickJect) 125 mg/mL auto-injector Take 1 pen weekly subcutaneously 4 mL 02/19/19 25 Active Additional Information Patient not taking.Reported on 05/22/2024 methotrexate 2.5 mg tabletIndications: Primary osteoarthritis involving multiple joints TAKE 10 TABLETS BY MOUTH EVERY 7 DAYS. 120 tablet 2 03/13/19 25 Active lisdexamfetamine (VYVANSE) 50 mg capsule TAKE 2 CAPSULES BY MOUTH IN THE MORNING 05/11/19 25 Active meloxicam (MOBIC) 15 mg tablet TAKE 1 TABLET (15 MG TOTAL) BY MOUTH DAILY. 30 tablet 2 08/13/19 25 026 Active Active Problems Problem Noted Date Diagnosed [...] to see if this improves your symptoms. 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 Take care when using kiqf-sci-bpjzeat medications as some also contain NSAIDs. The most common uroy-vtx-ucsszty NSAIDs include naproxen and ibuprofen. Make sure [...] Advice given about 2019 novel coronavirus by annette gutierrez 05/16/2019 Assessment & Plan (2019 8:46 PM CDT): You may review the current [employer] Covid-19 clinical guidance for Patients with Rheumatic Diseases if you copy and paste the link below into your web browser: https://[email or web address].org/Portals/0/Files/[email or web address]-Fpufucgh-Jhkbewkf-Mojw tammie-P jogjmkj-bupr-Qkffjxdls-Diseases.pdf Of course, methotrexate and Humiura should be [...] 11/10/2018 Assessment & Plan (02/13/2019 12:32 PM DRY WALL INSTALLER): An optimal BMI (body mass index) is [...] PND. Assessment & Plan (02/13/2019 12:30 PM DRY WALL INSTALLER): Vitals BP 118/82 (BP Location: Left arm, [...] regular monitoring. Labs done this week at [place]. no s/s of med tox or infection. Encouraged to work with PCP to make sure all recommended cancer screens and vaccinations are complete. Avoid live-vaccines unless reviewed with information developer first. Assessment & Plan (11/19/2022 11:01 AM CDT): Long-term use of high-risk medication requiring regular monitoring. Labs ordered, no s/s of med tox or infection. Encouraged to work with PCP to make sure all recommended cancer screens and vaccinations are complete. Avoid live-vaccines unless reviewed with information developer first. Assessment & Plan (10/25/2021 9:07 PM CDT): Long-term use of high-risk medication requiring regular monitoring. Labs ordered, no s/s of med tox or infection. Encouraged to work with PCP to make sure all recommended cancer screens and vaccinations are complete. Avoid live-vaccines unless reviewed with information developer first. Assessment & Plan (2019 8:47 PM [...] written. Assessment & Plan (02/13/2019 12:29 PM DRY WALL INSTALLER): Patient on immunosuppressive medications requiring periodic lab [...] written. Assessment & Plan (12/26/2017 10:06 PM DRY WALL INSTALLER): Patient on immunosuppressive medications requiring periodic lab monitoring for drug safety. Assessment & Plan (09/05/2017 10:11 AM CDT): Patient on immunosuppressive medications requiring periodic lab monitoring for drug safety. Assessment & Plan (07/08/2017 2:10 PM CDT): Patient on immunosuppressive medications requiring periodic lab monitoring for drug safety. Update lab as per orders written. Assessment & Plan (03/23/2017 5:19 PM DRY WALL INSTALLER): Patient on immunosuppressive medications requiring periodic lab monitoring for drug safety. Update lab as per orders written. Assessment & Plan (02/08/2017 11:17 AM DRY WALL INSTALLER): Patient on immunosuppressive medications requiring periodic lab [...] update and will have them drawn at [facility] where he works. Refills provided as needed. Assessment & Plan (02/13/2019 12:41 PM DRY WALL INSTALLER): Good response to Humira (started 08/2018) without [...] Joelle Galindo MD, and reviewed by the [employer] Committee on Communications and Marketing. This information is provided for general education only. Individuals should consult a qualified health care provider for professional medical advice, diagnosis and treatment of a medical or health condition. 2017 [employer] See more at: https://www.rheumatology.org/I-Am-A/Patient-Caregiver/Treatments/TNF-Inhibitors# sthas [email or web address] Assessment & Plan (12/26/2017 10:07 PM DRY WALL INSTALLER): Patient with psoriatic arthritis present for scheduled [...] orders. Assessment & Plan (02/08/2017 11:15 AM DRY WALL INSTALLER): Psoriatic arthritis (clinically confirmed by ultrasound exam). [...] 10/06/2016 Assessment & Plan (02/13/2019 12:34 PM DRY WALL INSTALLER): Recommend return to sleep center to be [...] 02/13/2019 Assessment & Plan (02/13/2019 12:32 PM DRY WALL INSTALLER): An optimal BMI (body mass index) is between 20 and 25. Encourage weight loss. Each pound of weight lost unloads 3-4 pounds per square inch pressure from weight bearing joints. Diet and exercise are the keys to weight management. Assessment & Plan (11/20/2018 4:48 AM CDT): As above Psoriatic arthritis 10/06/2016 11/21/19 19 Assessment & Plan (12/22/2016 12:08 PM DRY WALL INSTALLER): Reviewed with patient radiographic findings of osteoarthritis [...] Nick Gayle MD and reviewed by the [employer] Committee on Communications and MarketingThis patient fact sheet is provided for general education only. Individuals should consult a qualified health care provider for professional medical advice, diagnosis and treatment of a medical or health condition. 2017 [employer] - See more at: [...] 02/13/2019 Assessment & Plan (02/13/2019 12:29 PM DRY WALL INSTALLER): An optimal BMI (body mass index) is [...] management. Assessment & Plan (03/23/2017 5:19 PM DRY WALL INSTALLER): An optimal BMI (body mass index) is between 20 and 25. Encourage weight loss. Each pound of weight lost unloads 3-4 pounds per square inch pressure from weight bearing joints. Diet and exercise are the keys to weight management. Assessment & Plan (02/08/2017 11:17 AM DRY WALL INSTALLER): An optimal BMI (body mass index) is between 20 and 25. Encourage weight loss. Each pound of weight lost unloads 3-4 pounds per square inch pressure from weight bearing joints. Diet and exercise are the keys to weight management. Assessment & Plan (12/22/2016 12:07 PM DRY WALL INSTALLER): Reinforced importance of weight loss. 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 Male 9:08 AM DRY WALL INSTALLER Gender Identity Male 09/23/2020 7:50 PM CDT [...] 12/26/2022 12/26/2017, 12/22/2016 Influenza Vaccine (#1) 2024 4, 11/26/2022, 11/21/2021, Additional history exists DTaP/Tdap/Td Vaccine [...] AM CDT) Hep A IgM Non-Reactive Non-Reactive [facility] Hep B core IgM Non-Reactive Non-Reactive [facility] Hep C Ab Non-Reactive Non-Reactive [facility] HepBsAg Nonreactive Nonreactive [facility] Blood specimen (specimen) 06/07/2018 10:43 AM CDT 06/07/2018 2:02 PM CDT Narrative [facility] - 06/07/2018 3:19 PM CDT us Lorenzo Coyle MD LAB MICROBIOLOGY - GENERA L ORDERABLES Final Result [facility] [address] Department [place] [address] from Last 3 Months or Most Recently Relevant to Health Maintenance Insurance [facility] H[facility]PP[facility] Address: [place] [address] [facility]PP[facility] Address: [place] [address] [facility] Care Teams Stage Set Designer Relationship Specialty Start Date End Date Alex Chavez MD PCP - General Family Medicine 10/06/16 Lorenzo Coyle MD [address] [facility] [address] [place] [address] Consulting Physician Rheumatology 05/16/19
--- OUTSIDE RECORDS SUMMARY | 2024-09-20 15:09 | XMS_ITS | Clinical Summary ---
Author Organization [employer] Address [address] [place] [address] Care Team Providers Care Clock And Watch Assembler Name Role Phone Alex Chavez MD Primary Care Provider [phone] Source Comments [facility],non-owned Affiliates and Associated Physician Practices is amultiple site organization consisting of ambulatory clinics and hospital sitesin [place], [place], [place] and [place]. This disclosure is being madepursuant to the Care Everywhere program and may not contain all information available regarding this patient. Last updated 17.[facility] [employer] [facility] [employer] Allergies No known active allergies Medications * [...] by mouth 2 times daily. 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 Gender Identity Not on file Sexual Orientation [...] 04/15/2020, 03/18/2020 DEPRESSION SCREENING 02/15/2024 INFLUENZA VACCINE (#1) 2024 2, 11/25/2020, 11/10/2018, Additional history exists Respiratory Syncytial [...] this topic Medical Devices Implanted Type Area Senior Premium Auditor Device Identifier Shelf Expiration Date Model / Serial / Lot Screw Implanted:Qty: 2 on 04/25/2012 by Remington Ortiz MD at [facility] N/A: Back [employer] [id number] / / Screws Implanted:Qty: 4 on 04/25/2012 by Remington Ortiz MD at [facility] [employer]ck [employer] [id number] / / Screw Implanted:Qty: 1 on 04/25/2012 at [facility] [employer] [id number] / / Screws Implanted:Qty: 2 on 04/25/2012 by Remington Ortiz MD at [facility] Neck [employer] [id number] / / Praneeth Implanted:Qty: 1 on 04/25/2012 by Remington Ortiz MD at [facility] N/A: Neck [employer] [id number] / / Set Screws Implanted:Qty: 10 on 04/25/2012 by Remington Ortiz MD at [facility] N/A: Neck [id number] / / Putty Brady-3 Dbm 10cc Implanted:Qty: 1 on 04/25/2012 at [facility] Neck [employer] 01/14/2013 02-5000-10 0 / / [id number] Description:in or record to add lot#, TB Peek Implanted:Qty: 1 on 04/25/2012 by Remington Ortiz MD at [facility] N/A: Neck [employer] [id number] / / [id number] Peek Implanted:Qty: 1 on 04/25/2012 at [facility] Neck [employer] [id number] / / [id number] Peek Implanted:Qty: 1 on 04/25/2012 by Remington Ortiz MD at [facility] [employer] [id number] / / [id number] Screws Implanted:Qty: 8 on 04/25/2012 by Remington Ortiz MD at [facility] [employer] 07.48507.0 07 / / Plate Implanted:Qty: 1 on 04/25/2012 by Remington Ortiz MD at [facility] [employer] 07.46816.0 06 / / Screws Implanted:Qty: 2 on 04/25/[address] [facility] [employer] [id number]. 003 / / Screws Implanted:Qty: 1 on 04/25/2012 by Remington Ortiz MD at [facility] [employer]x [facility] [id number] / / Insurance * Guarantor: Pablo Sterling Account Type Relation to Patient Date of Phone Billing Address Personal/Family Self 1960 [phone] (Work) [address] [place], [place] [id number] [facility] [facility] [phone] (Work) [address] [place] [phone] [facility] Advance Directives * FULL RESUSCITATION (Latest Code Status on File) Date Activated Date Inactivated Comments 04/26/2012 12:34 AM 04/28/2012 2:39 PM * FULL RESUSCITATION Date Activated Date Inactivated Comments 04/25/2012 10:37 PM 04/26/2012 12:34 AM Care Teams Clock And Watch Assembler Relationship Specialty Start Date End Date Alex Chavez MD [address] [address] PCP - General Family Medicine 04/25/12
--- NOTE | 2024-09-20 15:14 | ECG_ITS ---
Test Date: 2024-09-20 15:20:12 Measurements Intervals Ira Rate: 79 P: 25 FL: 142 QRS: -10 QRSD: 99 T: -1 QT: 356 QTc: 409 Interpretive Statements SINUS RHYTHM INCOMPLETE RIGHT BUNDLE BRANCH BLOCK EARLY PRECORDIAL R/S TRANSITION INFERIOR INFARCT, AGE INDETERMINATE BORDERLINE ST-T WAVE ABNORMALITY- ANTERIOR LEADS BASELINE ARTIFACT- I, II, III, AVR, AVL ABNORMAL ECG No previous ECG available for comparison Electronically Signed On 09-20-2024 15:21:52 CDT by Soham Nichole D.O.
== END 2024-09-20 15:05 | disposition home or self-care (01) ==
LOC: ANHSURGERY 15:07
PROVIDERS: PCP Family Medicine; Visit Provider Surgery
DX: K40.20 Bilateral inguinal hernia, without obstruction or gangrene, not specified as recurrent (principal); I10 Essential (primary) hypertension; Z01.818 Encounter for other preprocedural examination; I45.10 Unspecified right bundle-branch block
CPT/HCPCS: 36415; 86850; 86900; 86901; 93005

== ENCOUNTER 2024-09-21 10:39 | Outpatient (CLI) | payer OTHER, SELFPAY ==
--- OUTSIDE RECORDS SUMMARY | 2024-09-21 10:50 | XMS_ITS | Encounter Summary ---
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
--- OUTSIDE RECORDS SUMMARY | 2024-09-21 10:50 | XMS_ITS | Clinical Summary ---
Author Organization [email or web address] Address [address] [place] [address] Care Team Providers Care Manager Branch Name Role Phone Alex Chavez MD Primary Care Provider [phone] Source Comments [facility] [email or web address],non-owned Affiliates and Associated Physician Practices is amultiple site organization consisting of ambulatory clinics and hospital sitesin [place], [place], [place] and [place]. This disclosure is being madepursuant to the Care Everywhere program and may not contain all information available regarding this patient. Last updated 17.[email or web address] Allergies No known active allergies Medications * [...] by mouth 2 times daily. 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 N/A: Back [employer] [id number] / / Screws Implanted:Qty: 4 on 04/25/2012 by Remington Ortiz MD at [facility] Neck [employer] [id number] / / Screw Implanted:Qty: 1 on 04/25/[address] [facility] [employer] [id number] / / Screws Implanted:Qty: 2 on 04/25/2012 by Remington Ortiz MD at [facility] [employer] [id number] / / Praneeth Implanted:Qty: 1 on 04/25/2012 by Remington Ortiz MD at [facility] N/A: Neck [employer] [id number] / / Set Screws Implanted:Qty: 10 on 04/25/2012 by Remington Ortiz MD at [facility] N/A: Neck [id number] / / Putty Brady-3 Dbm 10cc Implanted:Qty: 1 on 04/25/[address] [facility] Neck [employer] 01/14/2013 02-5000-10 0 / / [id number] Description:in or record to add lot#, TB Peek Implanted:Qty: 1 on 04/25/2012 by Remington Ortiz MD at [facility] N/A: Neck [employer] 0675-8682 / / [id number] Peek Implanted:Qty: 1 on 04/25/[address] [facility] [employer] [id number] / / [id number] Peek Implanted:Qty: 1 on 04/25/2012 by Remington Ortiz MD at [facility] [employer] 6025-8470 / / [id number] Screws Implanted:Qty: 8 on 04/25/2012 by Remington Ortiz MD at [facility] [employer] 07.33600.0 07 / / Plate Implanted:Qty: 1 on 04/25/2012 by Remington Ortiz MD at [facility] [employer] 07.21225.0 06 / / Screws Implanted:Qty: 2 on 04/25/[address] [facility] [employer] [id number]. 003 / / Screws Implanted:Qty: 1 on 04/25/2012 by Remington Ortiz MD at [facility]x [facility] 3729-2245 / / Insurance * Guarantor: Pablo Sterling Account Type Relation to Patient Date of Phone Billing Address Personal/Family Self 1960 [phone] (Work) [address] [place], [place] [id number] [employer] [facility] [phone] (Work) [address] [place] [phone] [facility] Advance Directives * FULL RESUSCITATION (Latest Code Status on File) Date Activated Date Inactivated Comments 04/26/2012 12:34 AM 04/28/2012 2:39 PM * FULL RESUSCITATION Date Activated Date Inactivated Comments 04/25/2012 10:37 PM 04/26/2012 12:34 AM Care Teams Manager Branch Relationship Specialty Start Date End Date Alex Chavez MD [address] [address] PCP - General Family Medicine 04/25/12
--- OUTSIDE RECORDS SUMMARY | 2024-09-21 10:50 | XMS_ITS | Encounter Summary ---
Author Organization [facility] Address [address] [place] [address] Care Team Providers Care Job Superintendent Name Role Phone Unknown, Provider Primary Care Provider Alex Christie MD Primary Care Provider [phone] Encounter Details Date Type Department Care Team (Late st Contact Info) Description 03/22/2012 [facility] [place] [address] [place] [address] Social History Tobacco Use Types Packs/Day Years Used Date Smoking Tobacco: Never Smokeless Tobacco: Never Alcohol Use Standard Drinks/Week Comments Yes 0 (1 standard drink = 0.6 oz pur e alcohol) rarely Sex and Gender Information Value Date Recorded Sex Assigned at Not on file 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
--- OUTSIDE RECORDS SUMMARY | 2024-09-21 10:50 | XMS_ITS | Clinical Summary ---
Author Organization [facility] Address [address] [place] [address] Care Team Providers Care Occupational Ther Name Role Phone Alex Chavez MD Primary Care Provider [phone] Lorenzo Coyle MD Unavailable Allergies No known [...] to see if this improves your symptoms. superintendent terminal (current) use of n on-steroidal anti-inflammatories (nsaid) [...] or kidney issues. Take care when using gimt-jdy-trdgomx medications as some also contain NSAIDs. The most common lmou-afk-ltgfmln NSAIDs include naproxen and ibuprofen. Make sure [...] PM CDT): You may review the current [place] [employer] Covid-19 clinical guidance for Patients with Rheumatic Diseases if you copy and paste the link below into your web browser: [email or web address]-[email or web address] tammie-P [email or web address]-[email or web address]-Diseases.pdf Of course, methotrexate and Humiura should be [...] 11/10/2018 Assessment & Plan (02/13/2019 12:32 PM BUILDING ENGINEER): An optimal BMI (body mass index) is [...] PND. Assessment & Plan (02/13/2019 12:30 PM BUILDING ENGINEER): Vitals BP 118/82 (BP Location: Left arm, [...] regular monitoring. Labs done this week at [place]. no s/s of med tox or infection. Encouraged to work with PCP to make sure all recommended cancer screens and vaccinations are complete. Avoid live-vaccines unless reviewed with forestry fire aid first. Assessment & Plan (11/19/2022 11:01 AM CDT): Long-term use of high-risk medication requiring regular monitoring. Labs ordered, no s/s of med tox or infection. Encouraged to work with PCP to make sure all recommended cancer screens and vaccinations are complete. Avoid live-vaccines unless reviewed with forestry fire aid first. Assessment & Plan (10/25/2021 9:07 PM CDT): Long-term use of high-risk medication requiring regular monitoring. Labs ordered, no s/s of med tox or infection. Encouraged to work with PCP to make sure all recommended cancer screens and vaccinations are complete. Avoid live-vaccines unless reviewed with forestry fire aid first. Assessment & Plan (2019 8:47 PM [...] written. Assessment & Plan (02/13/2019 12:29 PM BUILDING ENGINEER): Patient on immunosuppressive medications requiring periodic lab [...] written. Assessment & Plan (12/26/2017 10:06 PM BUILDING ENGINEER): Patient on immunosuppressive medications requiring periodic lab monitoring for drug safety. Assessment & Plan (09/05/2017 10:11 AM CDT): Patient on immunosuppressive medications requiring periodic lab monitoring for drug safety. Assessment & Plan (07/08/2017 2:10 PM CDT): Patient on immunosuppressive medications requiring periodic lab monitoring for drug safety. Update lab as per orders written. Assessment & Plan (03/23/2017 5:19 PM BUILDING ENGINEER): Patient on immunosuppressive medications requiring periodic lab monitoring for drug safety. Update lab as per orders written. Assessment & Plan (02/08/2017 11:17 AM BUILDING ENGINEER): Patient on immunosuppressive medications requiring periodic lab [...] update and will have them drawn at [facility] where he works. Refills provided as needed. Assessment & Plan (02/13/2019 12:41 PM BUILDING ENGINEER): Good response to Humira (started 08/2018) without [...] Joelle Galindo MD, and reviewed by the [place] Committee on Communications and Marketing. This information is provided for general education only. Individuals should consult a qualified health care provider for professional medical advice, diagnosis and treatment of a medical or health condition. 2017 [place] See more at: [email or web address] [email or web address] Assessment & Plan (12/26/2017 10:07 PM BUILDING ENGINEER): Patient with psoriatic arthritis present for scheduled [...] orders. Assessment & Plan (02/08/2017 11:15 AM BUILDING ENGINEER): Psoriatic arthritis (clinically confirmed by ultrasound exam). [...] 10/06/2016 Assessment & Plan (02/13/2019 12:34 PM BUILDING ENGINEER): Recommend return to sleep center to be [...] 02/13/2019 Assessment & Plan (02/13/2019 12:32 PM BUILDING ENGINEER): An optimal BMI (body mass index) is between 20 and 25. Encourage weight loss. Each pound of weight lost unloads 3-4 pounds per square inch pressure from weight bearing joints. Diet and exercise are the keys to weight management. Assessment & Plan (11/20/2018 4:48 AM CDT): As above Psoriatic arthritis 10/06/2016 11/21/19 19 Assessment & Plan (12/22/2016 12:08 PM BUILDING ENGINEER): Reviewed with patient radiographic findings of osteoarthritis [...] Nick Gayle MD and reviewed by the [place] Committee on Communications and MarketingThis patient fact sheet is provided for general education only. Individuals should consult a qualified health care provider for professional medical advice, diagnosis and treatment of a medical or health condition. 2017 [employer] - See more at: [...] 02/13/2019 Assessment & Plan (02/13/2019 12:29 PM BUILDING ENGINEER): An optimal BMI (body mass index) is [...] management. Assessment & Plan (03/23/2017 5:19 PM BUILDING ENGINEER): An optimal BMI (body mass index) is between 20 and 25. Encourage weight loss. Each pound of weight lost unloads 3-4 pounds per square inch pressure from weight bearing joints. Diet and exercise are the keys to weight management. Assessment & Plan (02/08/2017 11:17 AM BUILDING ENGINEER): An optimal BMI (body mass index) is between 20 and 25. Encourage weight loss. Each pound of weight lost unloads 3-4 pounds per square inch pressure from weight bearing joints. Diet and exercise are the keys to weight management. Assessment & Plan (12/22/2016 12:07 PM BUILDING ENGINEER): Reinforced importance of weight loss. 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 Gender Identity Male 09/23/2020 7:50 PM CDT [...] AM CDT) Hep A IgM Non-Reactive Non-Reactive [facility] Hep B core IgM Non-Reactive Non-Reactive [facility] Hep C Ab Non-Reactive Non-Reactive [facility] HepBsAg Nonreactive Nonreactive [facility] Blood specimen (specimen) 06/07/2018 10:43 AM CDT 06/07/2018 2:02 PM CDT Narrative [facility] - 06/07/2018 3:19 PM CDT us Lorenzo Coyle MD LAB MICROBIOLOGY - GENERA L ORDERABLES Final Result [facility] [address] Department [place] [address] from Last 3 Months or Most Recently Relevant to Health Maintenance Insurance [facility]O Address: [place] [address] [facility]PPO Address: [place] [address] [facility] Care Teams Occupational Ther Relationship Specialty Start Date End Date Alex Chavez MD PCP - General Family Medicine 10/06/16 Lorenzo Coyle MD [address] [facility] [address] [place] [address] Consulting Physician Rheumatology 05/16/19
[2024-09-21 11:52] LABS: Add Urine Microscopic? NO; Appearance Urine Clear (Clear); Glucose Urine UA Negative (Negative); Hematocrit 46.7 % (42.0-52.0); Hemoglobin 16.0 g/dL (14.0-18.0); Immature Granulocyte Percent A 0.3 % (0-0.5); Leukocyte Esterase Ur Negative LEU/UL (Negative); Lymphocytes Absolute Auto 2.13 K/mm3 (0.9-3.2); Mean Corpuscular HGB Conc 34.3 g/dl (32-36); Mean Corpuscular Hemoglobin 31.8 pg (26-34); Mean Corpuscular Volume 92.8 fl (80-100); Nitrate Urine Negative (Negative); Nucleated Red Blood Cells Absolute Auto 0.000 K/mm3 (0.0-0.012); Nucleated Red Blood Cells Perc 0.0 % (0.0-0.2); Platelet Count Result 181 k/mm3 (150-375); Red Blood Count 5.03 M/mm3 (4.6-6.20); Specific Grav Ur 1.015 (1.001-1.035); White Blood Count 5.9 K/mm3 (4.5-10.0)
[2024-09-21 12:09] LABS: Alanine Aminotransferase 28 U/L (6-50); Albumin Level 4.5 g/dL (3.5-5.1); Alkaline Phosphatase 63 U/L (38-126); Anion Gap 7 mmol/L (4-12); Aspartate Amino Transferase 30 U/L (17-59); Bilirubin,Total 0.6 mg/dL (0.2-1.3); Blood Urea Nitrogen 15 mg/dL (9-20); Calcium 8.9 mg/dL (8.4-10.2); Carbon Dioxide 28 mmol/L (22-30); Chloride 102 mmol/L (98-107); Cholesterol 249 mg/dL (0-200); Estimated Glomerular Filt Rate > 60; Glucose 109 mg/dL (65-110); HDL Direct 50 mg/dL; Potassium 4.0 mmol/L (3.4-5.0); Sodium 137 mmol/L (137-145); Total Protein 7.4 g/dL (6.3-8.2); Triglycerides 130 mg/dL (<150); Uric Acid 4.4 mg/dL (3.5-8.5)
[2024-09-21 12:43] LABS: Thyroid Stimulating Hormone 0.938 uIU/mL (0.465-4.680)
[2024-09-21 16:36] LABS: Hemoglobin A1C 5.8 % (<5.7)
[2024-09-22 09:08] LABS: C-Reactive Protein, Cardiac 1.42 mg/L (0.00-3.00)
== END 2024-09-21 10:40 | disposition home or self-care (01) ==
PROVIDERS: PCP Family Medicine; Visit Provider Family Medicine
DX: D52.1 Drug-induced folate deficiency anemia (principal); E29.0 Testicular hyperfunction; E55.9 Vitamin D deficiency, unspecified; E78.9 Disorder of lipoprotein metabolism, unspecified; E79.0 Hyperuricemia without signs of inflammatory arthritis and tophaceous disease; R53.81 Other malaise; E78.00 Pure hypercholesterolemia, unspecified; R53.1 Weakness
CPT/HCPCS: 36415; 80053; 80061; 81003; 82306; 82746; 83036; 84270; 84443; 84550; 85025; 85652; 86141

== ENCOUNTER 2024-09-25 03:18 | Day surgery (SDC) | payer OTHER, SELFPAY ==
[2024-09-20 15:29] VITALS: BMI 32.8
--- NOTE | 2024-09-20 15:38 | PC.NURSE ---
Report to the Outpatient Waiting Room, entrance under the green pavilion located off [facility], at time _0930_ on date _[id number]_. Planned Procedure Time: _1130_.? Time changes happen often and if your time is changed the preop area will call you the afternoon before. - You and your visitor will be asked to self-screen and do not enter if you have any COVID symptoms. Please call surgeon if you need to reschedule. - A mask is optional within the hospital at this time. Patients may have clear liquids (water, carbonated beverages, clear teas, apple juice) until 3 hours prior to surgery with a maximum of 20 ounces. - No food from midnight until time of surgery and no smoking, or chewing tobacco (or any form of nicotine). No chewing gum, candy or mints. Take only the following medications with a SIP of water on the morning of surgery: __Atenolol DO NOT STOP ANY OF YOUR OTHER PRESCRIPTION MEDICATIONS PRIOR TO SURGERY EXCEPT THE FOLLOWING Hold all vitamins and supplements for 3 days per anesthesiologist. Medications to discontinue per physician Date to take last dose Please no make-up, nail mauritanian, hairspray, perfume, deodorant, or body powder the day of surgery.? No jewelry (including any body piercings) or valuables the day of surgery, leave them at home.? Please take a shower or bath the night before, or the morning of, surgery with an antibacterial soap.? Wear comfortable, loose fitting clothing.? - Jewelry must be removed prior to entering the operating room.? Rings and piercings that are not removed may be cut off. - The hospital will not accept responsibility for valuables.? - Please leave all valuables, including medications, at home the day of surgery. If you are going home after surgery, a licensed hazmat cdl a driver must drive you home.? - NO public transportation without another adult if you receive anesthesia. - We recommend that an adult stay with you for 24 hours following discharge. - We also recommend that you do not drive, make important decision, drink alcoholic beverages, or take any drugs that were not prescribed by your health care provider for at least 24 hours after your discharge time. Follow any additional instructions given to you from your surgeon. Telephone instructions given to __Mark__and asked if any additional questions and then verbalized understanding. Patient advised to call surgeon office or pre surgery nurse liaison [phone] if any additional questions.
[2024-09-25] VITALS (9 sets, daily range): BP systolic 120–144; BP diastolic 71–93; PULSE 57–80; RESP 12–16; TEMP 36.5–36.6; O2SAT 97–100
--- OUTSIDE RECORDS SUMMARY | 2024-09-25 03:21 | XMS_ITS | Encounter Summary ---
Author Organization [facility] Address [address] [place] [address] Care Team Providers Care Building Trades Teacher Name Role Phone Unknown, Provider Primary Care Provider Alex Christie MD Primary Care Provider [phone] Encounter Details Date Type Department Care Team (Late st Contact Info) Description 03/22[facility]2012 [facility] [address] [place] [address] Social History Tobacco Use Types Packs/Day Years Used Date Smoking Tobacco: Never Smokeless Tobacco: Never Alcohol Use Standard Drinks/Week Comments Yes 0 (1 standard drink = 0.6 oz pur e alcohol) rarely Sex and Gender Information Value Date Recorded Sex Assigned at Not on file 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
--- OUTSIDE RECORDS SUMMARY | 2024-09-25 03:21 | XMS_ITS | Clinical Summary ---
Author Organization [facility] D Address [address] [place] [address] Care Team Providers Care Batch Plant Operator Name Role Phone Alex Chavez MD Primary Care Provider Lorenzo oCyle MD Unavailable Allergies No known active allergies [...] to see if this improves your symptoms. manager intermediate (current) use of n on-steroidal anti-inflammatories (nsaid) [...] or kidney issues. Take care when using axey-xoi-rzyslag medications as some also contain NSAIDs. The most common cgar-bxd-kbfrwnd NSAIDs include naproxen and ibuprofen. Make sure [...] PM CDT): You may review the current [employer] Covid-19 clinical guidance for Patients with Rheumatic Diseases if you copy and paste the link below into your web browser: [email or web address] Of course, methotrexate and Humiura should be [...] 11/10/2018 Assessment & Plan (02/13/2019 12:32 PM PRINTS AND DRAWINGS CURATOR): An optimal BMI (body mass index) is [...] PND. Assessment & Plan (02/13/2019 12:30 PM PRINTS AND DRAWINGS CURATOR): Vitals BP 118/82 (BP Location: Left arm, [...] regular monitoring. Labs done this week at [place]. no s/s of med tox or infection. Encouraged to work with PCP to make sure all recommended cancer screens and vaccinations are complete. Avoid live-vaccines unless reviewed with traveling crane operator first. Assessment & Plan (11/19/2022 11:01 AM CDT): Long-term use of high-risk medication requiring regular monitoring. Labs ordered, no s/s of med tox or infection. Encouraged to work with PCP to make sure all recommended cancer screens and vaccinations are complete. Avoid live-vaccines unless reviewed with traveling crane operator first. Assessment & Plan (10/25/2021 9:07 PM CDT): Long-term use of high-risk medication requiring regular monitoring. Labs ordered, no s/s of med tox or infection. Encouraged to work with PCP to make sure all recommended cancer screens and vaccinations are complete. Avoid live-vaccines unless reviewed with traveling crane operator first. Assessment & Plan (2019 8:47 PM [...] written. Assessment & Plan (02/13/2019 12:29 PM PRINTS AND DRAWINGS CURATOR): Patient on immunosuppressive medications requiring periodic lab [...] written. Assessment & Plan (12/26/2017 10:06 PM PRINTS AND DRAWINGS CURATOR): Patient on immunosuppressive medications requiring periodic lab monitoring for drug safety. Assessment & Plan (09/05/2017 10:11 AM CDT): Patient on immunosuppressive medications requiring periodic lab monitoring for drug safety. Assessment & Plan (07/08/2017 2:10 PM CDT): Patient on immunosuppressive medications requiring periodic lab monitoring for drug safety. Update lab as per orders written. Assessment & Plan (03/23/2017 5:19 PM PRINTS AND DRAWINGS CURATOR): Patient on immunosuppressive medications requiring periodic lab monitoring for drug safety. Update lab as per orders written. Assessment & Plan (02/08/2017 11:17 AM PRINTS AND DRAWINGS CURATOR): Patient on immunosuppressive medications requiring periodic lab [...] and will have them drawn at [facility] where he works. Refills provided as needed. Assessment & Plan (02/13/2019 12:41 PM PRINTS AND DRAWINGS CURATOR): Good response to Humira (started 08/2018) without [...] Joelle Galindo MD, and reviewed by the [employer] Committee on Communications and Marketing. This information is provided for general education only. Individuals should consult a qualified health care provider for professional medical advice, diagnosis and treatment of a medical or health condition. 2017 [employer] See more at: [email or web address] [email or web address] Assessment & Plan (12/26/2017 10:07 PM PRINTS AND DRAWINGS CURATOR): Patient with psoriatic arthritis present for scheduled [...] orders. Assessment & Plan (02/08/2017 11:15 AM PRINTS AND DRAWINGS CURATOR): Psoriatic arthritis (clinically confirmed by ultrasound exam). [...] 10/06/2016 Assessment & Plan (02/13/2019 12:34 PM PRINTS AND DRAWINGS CURATOR): Recommend return to sleep center to be [...] 02/13/2019 Assessment & Plan (02/13/2019 12:32 PM PRINTS AND DRAWINGS CURATOR): An optimal BMI (body mass index) is between 20 and 25. Encourage weight loss. Each pound of weight lost unloads 3-4 pounds per square inch pressure from weight bearing joints. Diet and exercise are the keys to weight management. Assessment & Plan (11/20/2018 4:48 AM CDT): As above Psoriatic arthritis 10/06/2016 11/21/19 19 Assessment & Plan (12/22/2016 12:08 PM PRINTS AND DRAWINGS CURATOR): Reviewed with patient radiographic findings of osteoarthritis [...] Nick Gayle MD and reviewed by the [employer] Committee on Communications and MarketingThis patient fact sheet is provided for general education only. Individuals should consult a qualified health care provider for professional medical advice, diagnosis and treatment of a medical or health condition. 2017 [employer] - See more at: [...] 02/13/2019 Assessment & Plan (02/13/2019 12:29 PM PRINTS AND DRAWINGS CURATOR): An optimal BMI (body mass index) is [...] management. Assessment & Plan (03/23/2017 5:19 PM PRINTS AND DRAWINGS CURATOR): An optimal BMI (body mass index) is between 20 and 25. Encourage weight loss. Each pound of weight lost unloads 3-4 pounds per square inch pressure from weight bearing joints. Diet and exercise are the keys to weight management. Assessment & Plan (02/08/2017 11:17 AM PRINTS AND DRAWINGS CURATOR): An optimal BMI (body mass index) is between 20 and 25. Encourage weight loss. Each pound of weight lost unloads 3-4 pounds per square inch pressure from weight bearing joints. Diet and exercise are the keys to weight management. Assessment & Plan (12/22/2016 12:07 PM PRINTS AND DRAWINGS CURATOR): Reinforced importance of weight loss. 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 Male 9:08 AM PRINTS AND DRAWINGS CURATOR Gender Identity Male 09/23/2020 7:50 PM CDT [...] Pneumococcal vaccine <65 (3 of 3 - PCV20 or PCV21) 12/26/2022 12/26/2017, 12/22/2016 Influenza [...] AM CDT) Hep A IgM Non-Reactive Non-Reactive [facility] Hep B core IgM Non-Reactive Non-Reactive [facility] Hep C Ab Non-Reactive Non-Reactive [facility] HepBsAg Nonreactive Nonreactive [facility] Blood specimen (specimen) 06/07/2018 10:43 AM CDT 06/07/2018 2:02 PM CDT Narrative [facility] - 06/07/2018 3:19 PM CDT us Lorenzo Coyle MD LAB MICROBIOLOGY - GENERA L ORDERABLES Final Result [facility] [address] Department [place] [address] from Last 3 Months or Most Recently Relevant to Health Maintenance Insurance [facility] Care Teams Batch Plant Operator Relationship Specialty Start Date End Date Alex Chavez MD PCP - General Family Medicine 10/06/16 Lorenzo Coyle MD [address] [facility] [address] [place] [address] Consulting Physician Rheumatology 05/16/19
--- OUTSIDE RECORDS SUMMARY | 2024-09-25 03:21 | XMS_ITS | Encounter Summary ---
Author Organization [facility] Healthcare Address [address] [place] [address] Care Team Providers Care Security Rover Name Role Phone Alex Chavez MD Primary Care Provider Lorenzo Coyle MD Unavailable [phone] Encounter Details Date Type Department Care Team (Late st Contact Info) Description 04/06/2024 Orders Only [facility] Health Information Management [address] [place] [address] Scanning, Provider Social History Tobacco Use [...] on file Legal Sex Male 9:08 AM FAMILY EDUCATOR Gender Identity Male 09/23/2020 7:50 PM CDT [...] on filedocumented in this encounter Care Teams Security Rover Relationship Specialty Start Date End Date Alex Chavez MD PCP - General Family Medicine 10/06/16 Lorenzo Coyle MD [address] [facility] [address] [place] [address] Consulting Physician Rheumatology 05/16/19 documented as of this encounter
--- OUTSIDE RECORDS SUMMARY | 2024-09-25 03:21 | XMS_ITS | Clinical Summary ---
Author Organization [facility] Address [address] [place] [address] Care Team Providers Care Director Career Services Name Role Phone Alex Chavez MD Primary Care Provider [phone] Source Comments [facility],non-owned Affiliates and Associated Physician Practices is amultiple site organization consisting of ambulatory clinics and hospital sitesin [place], [place], [place] and [place]. This disclosure is being madepursuant to the Care Everywhere program and may not contain all information available regarding this patient. Last updated 17.[facility] Allergies No known active allergies Medications * [...] by mouth 2 times daily. Active B Dyqooyu-Parclt-W A (SUPER B-COMPLEX) CAPS Take by mouth [...] on file Legal Sex Male 6:39 PM CORN GROWER Gender Identity Not on file Sexual Orientation [...] this topic Medical Devices Implanted Type Area Highway Safety Engineer Device Identifier Shelf Expiration Date Model / Serial / Lot Screw Implanted:Qty: 2 on 04/25/2012 by Remington Ortiz MD at [facility] N/A: Back [employer] [id number] / / Screws Implanted:Qty: 4 on 04/25/2012 by Remington Ortiz MD at [facility] Neck [employer] [id number] / / Screw Implanted:Qty: 1 on 04/25/2012 at [facility] [employer] [id number] / / Screws Implanted:Qty: 2 on 04/25/2012 by Remington Ortiz MD at [facility] Neck [employer] [id number] / / Praneeth Implanted:Qty: 1 on 04/25/2012 by Remington Ortiz MD at [facility] N/A: Neck [employer] [id number] / / Set Screws Implanted:Qty: 10 on 04/25/2012 by Remington Ortiz MD at [facility] N/A: Neck [id number] / / Putty Brady-3 Dbm 10cc Implanted:Qty: 1 on 04/25/2012 at [facility] Neck [employer] 01/14/2013 02-5000-10 0 / / [id number] Description:in or record to add lot#, TB Peek Implanted:Qty: 1 on 04/25/2012 by Remington Ortiz MD at [facility] N/A: Neck [employer] [id number] / / [id number] Peek Implanted:Qty: 1 on 04/25/2012 at [facility] Neck [employer] [id number] / / [id number] Peek Implanted:Qty: 1 on 04/25/2012 by Remington Ortiz MD at [facility] [employer] [id number] / / [id number] Screws Implanted:Qty: 8 on 04/25/2012 by Remington Ortiz MD at [facility] [employer] [id number] 07 / / Plate Implanted:Qty: 1 on 04/25/2012 by Remington Ortiz MD at [facility] [employer] [id number] 06 / / Screws Implanted:Qty: 2 on 04/25/2012 at [facility] [employer] [id number]. 003 / / Screws Implanted:Qty: 1 on 04/25/2012 by Remington Ortiz MD at [facility] [employer] [facility] [id number] / / Insurance * Guarantor: Pablo Sterling Account Type Relation to Patient Date of Phone Billing Address Personal/Family Self 1960 [phone] (Work) [address] [place], [place] [id number] [employer] [facility] [phone] (Work) [address] [place] [id number] [facility] Advance Directives * FULL RESUSCITATION (Latest Code Status on File) Date Activated Date Inactivated Comments 04/26/2012 12:34 AM 04/28/2012 2:39 PM * FULL RESUSCITATION Date Activated Date Inactivated Comments 04/25/2012 10:37 PM 04/26/2012 12:34 AM Care Teams Director Career Services Relationship Specialty Start Date End Date Alex Chavez MD [address] [address] PCP - General Family Medicine 04/25/12
[2024-09-25] MEDS: ACETAMINOPHEN 500 MG TABLET 1000 MG PO (10:25)
[2024-09-25] MEDS: KETOROLAC 15 MG/ML VIAL (*BKC) IV PUSH (10:25)
[2024-09-25] MEDS: LACTATED RINGERS 1,000 ML 30 ML IV CONT ×3 (11:00→15:03)
--- NOTE | 2024-09-25 11:10 | WPDHPUPDATE1 ---
History and Physical Update Update Date/Time: 09/25/24 11:10 History and Physical has been reviewed, including an updated exam of the patient. There are NO changes in the patient's condition. Risks, benefits, and alternatives have been discussed and questions answered. Patient agrees to proceed with procedure.
--- NOTE | 2024-09-25 11:12 | WPDANESEPPF ---
Anes - Initial Pre Proc Eval Procedure: Operation Date: 09/25/24 11:30 Proposed Procedures p Laparoscopic Bilateral Inguinal Hernia Repair with Mesh, Davinci Assisted - Santiago Saleem DO Date/Time: 09/25/24 11:12 Surgeon: Santiago Saleem DO Pre Op Diagnosis: bilat inguinal hernia Patient Data Age: 63 Gender: M Height: 1.8 m Weight: 106.3 kg Last Vital Signs Temp 36.5 C 09/25/24 10:25 Pulse 67 09/25/24 10:25 Resp 16 09/25/24 10:25 BP 142/89 H 09/25/24 10:25 Pulse Ox 100 09/25/24 10:25 O2 Del Method Room Air 09/25/24 10:25 Allergies Allergy/AdvReac Type Severity Reaction Status Date / Time No Known Allergies Allergy Verified 09/25/24 10:35 Home Medications ?Medication ?Instructions ?Recorded ?Confirmed ?Type atenolol 25 mg tablet 25 mg PO DAILY 09/07/24 09/25/24 History dextroamphetamine sulfate 20 mg 20 mg PO DAILY 09/07/24 09/20/24 History tablet lisdexamfetamine 50 mg capsule 50 mg PO QAM 09/07/24 09/20/24 History (Vyvanse) meloxicam 15 mg tablet 15 mg PO DAILY 09/07/24 09/25/24 History pantoprazole 40 mg granules 40 mg PO DAILY 09/07/24 09/19/24 History delayed-release for susp in packet levomefolate 7.5 mg-algal oil 1 cap PO DAILY 09/19/24 09/20/24 History 90.314 mg capsule vitamin B complex (Balanced B-50 1 tablet PO DAILY 09/19/24 09/20/24 History tablet) cholecalciferol (vitamin D3) 50 2,000 unit PO DAILY 09/20/24 09/25/24 History mcg (2,000 unit) capsule (Vitamin D3) methotrexate sodium 2.5 mg tablet 25 mg PO WEEKLY 09/20/24 09/25/24 History pantoprazole 40 mg tablet,delayed 40 mg PO DAILY 09/20/24 09/20/24 History release Patient hx anesthesia problems: none Family hx anesthesia problems: none Results Review: All pre-operative results and documents have been reviewed as part of the pre-operative evaluation. [facility] Past Medical History Medical History Seizures Irritable bowel syndrome (IBS) Hypertension Kidney stones Psoriatic arthritis Tibial fracture 1970 History of spinal fracture C4 through C6 1977 football injury Gastroesophageal reflux disease Migraine headache Erectile dysfunction Anxiety and depression Obstructive sleep apnea Surgical History Surgical History History of surgery on lower extremity Left tibial osteoid osteopathic removal 1975 History of extracorporeal shockwave lithotripsy (ESWL) 2019 Hx of colonoscopy 2011 Hx of appendectomy 2004 Hx of spinal fusion C4-T2 2012 Social History Social History Smoking status: Never smoker Alcohol intake: current Substance use: never Substance use type: does not use Do You Feel Safe in your Home?: Yes Lack of Transportation: No Lack of Food: Never True Current Housing: I Have Housing Concerned About Future Housing: No Difficulty Paying Gas/Electric Bills: No Difficulty Paying for Meds: No Currently Unemployed: No Education: Associate Degree Difficulty w/ Childcare or Family Care: No Living arrangements: with family Spiritual care concerns: No Anes - Eval Final PreProcedure Day of Procedure 09/25/24 11:12 Patient weight: overweight Heart: regular rate and rhythm Lungs: clear to auscultation Airway: Mallampati scale class II Neurological: alert and oriented Last oral intake: >/= 8 hours ASA classification: III Emergent: no Anesthetic plan: proceed Anesthesia type and monitoring: general ETT and standard monitoring Results Review: All pre-operative results and documents have been reviewed as part of the pre-operative evaluation. Informed Consent: The patient's anesthetic plan and its attendant risks and benefits were discussed with the patient/family/POA. Questions were solicited and answers provided to the satisfaction of the patient/family/POA.
[2024-09-25] MEDS: ceFAZolin 2 GM in SODIUM CHLORIDE 0.9% IV 50 ML 100 ML IVPB (11:32)
[2024-09-25] MEDS: BUPIVACAINE/EPINEPHRINE 0.5% 50 ML VIAL 30 ML INFILTRATE (12:04)
--- NOTE | 2024-09-25 13:08 | P.OP_ITS ---
Procedure Note - Detailed Date of Procedure 09/25/24 Pre-op Diagnosis Bilateral inguinal hernia Post-op Diagnosis Same (Left indirect inguinal hernia and cord lipoma, right direct inguinal hernia and cord lipoma) Procedure Performed Laparoscopic bilateral inguinal hernia repair with mesh, da Geoff assisted Surgeon Santiago Saleem, Anesthesia General and Local (0.5% bupivacaine with epinephrine) Indications This is a 63-year-old man who presented with bilateral inguinal hernias. He was experiencing some groin pain particularly with coughing or standing for long periods of time. He had a prior CT done several years ago which showed evidence of small fat containing bilateral inguinal hernias. Discussions were made with the patient about treatment options and decision was made to proceed with robotic assisted laparoscopic bilateral inguinal hernia repair with mesh. Findings Robotic assisted laparoscopic bilateral inguinal hernia repair with mesh was performed. There was a small indirect left inguinal hernia as well as a cord lipoma. There were some adhesions in the right lower quadrant from his prior open appendectomy. Some of these adhesions involved the cecum and ascending colon. These were carefully taken down to adequately visualize the right groin region. He had a small direct right inguinal hernia and also had a cord lipoma on the right side. Robotic transabdominal preperitoneal approach was were used for hernias. Once wide enough preperitoneal pocket was created on each side I then placed a large 3DMax mid mesh overlying each myopectineal orifice. No specimens were obtained for pathology. Description of Procedure Procedure as well as risks, benefits, and alternatives were discussed with the patient. Written consent was obtained and placed in chart prior to procedure. Patient was brought back to surgical suite. He was placed supine on operating table. Time-out was done to confirm patient and procedure. He was then intubated by Anesthesia Department. His abdomen was prepped and draped in sterile fashion using chlorhexidine prep. 0.5% bupivacaine with epinephrine was infiltrated at each location for incision. An 8 mm incision was made in the left lateral abdomen, and a 5 mm Optiview trocar was advanced through the abdominal layers under direct visualization. Once inside the abdominal cavity, carbon dioxide insufflation was used to create a pneumoperitoneum. A camera was inserted and the abdominal cavity was inspected. The patient was placed in slight Trendelenburg position. An 8 millimeter incision was made on the right lateral abdomen and an 8 millimeter trocar was inserted under direct visualization. Another 8 millimeter incision was made just superior to the umbilicus and an 8 millimeter trocar was inserted under direct visualization. The 5 mm port was then removed and this was replaced with another 8 mm robotic port. The robotic arms were brought up to the patient's bedside and secured to the ports. The camera and instruments were inserted. I then moved over to the robotic console and took control of the camera and instruments. After careful inspection of the abdominal cavity, I began scoring the peritoneum along the lef t lower quadrant using scissors with electrocautery. The preperitoneal plane was entered and this was carefully dissected caudally along the inferior epigastric vessels. Careful dissection with scissors with electrocautery and blunt dissection was used to continue this dissection. I dissected far enough laterally to allow for mesh placement, and also dissected medially to identify the pubic arch and Stuart's ligament. The hernia sac was identified and carefully dissected posteriorly. The cord contents were also identified and the peritoneum was carefully dissected far enough posteriorly to allow for mesh placement. Once an adequate pocket was created, I then placed the mesh within the preperitoneal pocket and carefully unfolded it. The mesh was centered on the hernia defect with adequate overlap circumferentially. The inferior edge of the mesh was inspected to ensure that it was far enough away from the peritoneal edge. The mesh appeared in proper position overlying the entire myopectineal orifice. The mesh was secured using 3-0 Vicryl simple interrupted sutures in Stuart's ligament, the superior medial edge, and superior lateral edge of the mesh. The peritoneum was then closed over the mesh using a 3-0 V-lock running absorbable suture. I then began scoring the peritoneum along the right lower quadrant using scissors with electrocautery. The preperitoneal plane was entered and this was carefully dissected caudally along the inferior epigastric vessels. Careful dissection with scissors with electrocautery and blunt dissection was used to continue this dissection. I dissected far enough laterally to allow for mesh placement, and also dissected medially to identify the pubic arch and Stuart's ligament. The hernia sac was identified and carefully dissected posteriorly. The cord contents were also identified and the peritoneum was carefully dissected far enough posteriorly to allow for mesh placement. Once an adequate pocket was created, I then placed the mesh within the preperitoneal pocket and carefully unfolded it. The mesh was centered on the hernia defect with adequate overlap circumferentially. The inferior edge of the mesh was inspected to ensure that it was far enough away from the peritoneal edge. The mesh appeared in proper position overlying the entire myopectineal orifice. The mesh was secured using 3-0 Vicryl simple interrupted sutures in Stuart's ligament, the superior medial edge, and superior lateral edge of the mesh. The peritoneum was then closed over the mesh using a 3-0 V-lock running absorbable suture. The robotic instruments were removed. The robotic arms were disengaged from the ports and moved away from the bedside. The patient was flattened out in bed, the ports were removed under direct visualization, and the pneumoperitoneum was released. The skin of the incisions was approximated using 4-0 Monocryl subcuticular suture, and Exofin glue was applied on top. The patient was awakened from anesthesia, extubated, and transferred to recovery. Implants Large left and right 3DMax mid mesh Estimated Blood Loss 5 Complications No immediate complications Condition Stable Disposition Same day [facility] Billing Surgery - Charge Forward: Surgery Billing
[2024-09-25] MEDS: fentaNYL CITRATE INJ (*CRX) 100 MCG/2 ML VIAL 25 MCG IV PUSH ×4 (13:33→13:44)
== END 2024-09-25 15:48 | disposition home or self-care (01) ==
PROVIDERS: PCP Family Medicine; Visit Provider Surgery
PROC: 8E0Y4CZ Robotic Assisted Procedure of Lower Extremity, Percutaneous Endoscopic Approach (ICD-10-PCS; CPT 49650; principal; 2024-09-25 11:30)
DX: K40.20 Bilateral inguinal hernia, without obstruction or gangrene, not specified as recurrent (principal); K66.0 Peritoneal adhesions (postprocedural) (postinfection); I10 Essential (primary) hypertension; K21.9 Gastro-esophageal reflux disease without esophagitis; K58.9 Irritable bowel syndrome, unspecified; G47.33 Obstructive sleep apnea (adult) (pediatric); N52.9 Male erectile dysfunction, unspecified; F41.8 Other specified anxiety disorders; R56.9 Unspecified convulsions; L40.50 Arthropathic psoriasis, unspecified; Z98.890 Other specified postprocedural states; Z98.1 Arthrodesis status; Z87.442 Personal history of urinary calculi
CPT/HCPCS: 49650; S2900; J0690; A9270; C1781; J1100; J1885; J2250; J2270; J2405; J2704; J3010; J7120

== ENCOUNTER 2024-10-02 01:22 | Day surgery (SDC) | payer OTHER, SELFPAY ==
[2024-09-19 15:34] VITALS: BMI 32.8
--- OUTSIDE RECORDS SUMMARY | 2024-10-02 01:28 | XMS_ITS | Encounter Summary ---
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
--- OUTSIDE RECORDS SUMMARY | 2024-10-02 01:28 | XMS_ITS | Clinical Summary ---
Author Organization [facility] D Address [address] [place] [address] Care Team Providers Care Master Fisher Name Role Phone Alex Chavez MD Primary Care Provider Lorenzo Coyle MD Unavailable [phone] Allergies No known active allergies Medications pantoprazole [...] to see if this improves your symptoms. 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 Take care when using rzpq-pga-fuligwc medications as some also contain NSAIDs. The most common nbxh-gcx-jbxhwwz NSAIDs include naproxen and ibuprofen. Make sure [...] PM CDT): You may review the current [employer] [place] [employer] Covid-19 clinical guidance for Patients with Rheumatic Diseases if you copy and paste the link below into your web browser: [email or web address] [email or web address]-[email or web address]-Diseases.pdf Of course, methotrexate and Humiura should be [...] 11/10/2018 Assessment & Plan (02/13/2019 12:32 PM FIELD INVESTIGATOR): An optimal BMI (body mass index) is [...] PND. Assessment & Plan (02/13/2019 12:30 PM FIELD INVESTIGATOR): Vitals BP 118/82 (BP Location: Left arm, [...] regular monitoring. Labs done this week at [place]. no s/s of med tox or infection. Encouraged to work with PCP to make sure all recommended cancer screens and vaccinations are complete. Avoid live-vaccines unless reviewed with deputy director of nursing first. Assessment & Plan (11/19/2022 11:01 AM CDT): Long-term use of high-risk medication requiring regular monitoring. Labs ordered, no s/s of med tox or infection. Encouraged to work with PCP to make sure all recommended cancer screens and vaccinations are complete. Avoid live-vaccines unless reviewed with deputy director of nursing first. Assessment & Plan (10/25/2021 9:07 PM CDT): Long-term use of high-risk medication requiring regular monitoring. Labs ordered, no s/s of med tox or infection. Encouraged to work with PCP to make sure all recommended cancer screens and vaccinations are complete. Avoid live-vaccines unless reviewed with deputy director of nursing first. Assessment & Plan (2019 8:47 PM [...] written. Assessment & Plan (02/13/2019 12:29 PM FIELD INVESTIGATOR): Patient on immunosuppressive medications requiring periodic lab [...] written. Assessment & Plan (12/26/2017 10:06 PM FIELD INVESTIGATOR): Patient on immunosuppressive medications requiring periodic lab monitoring for drug safety. Assessment & Plan (09/05/2017 10:11 AM CDT): Patient on immunosuppressive medications requiring periodic lab monitoring for drug safety. Assessment & Plan (07/08/2017 2:10 PM CDT): Patient on immunosuppressive medications requiring periodic lab monitoring for drug safety. Update lab as per orders written. Assessment & Plan (03/23/2017 5:19 PM FIELD INVESTIGATOR): Patient on immunosuppressive medications requiring periodic lab monitoring for drug safety. Update lab as per orders written. Assessment & Plan (02/08/2017 11:17 AM FIELD INVESTIGATOR): Patient on immunosuppressive medications requiring periodic lab [...] needed. Assessment & Plan (02/13/2019 12:41 PM FIELD INVESTIGATOR): Good response to Humira (started 08/2018) without [...] Joelle Galindo MD, and reviewed by the [employer] [place] [employer] Committee on Communications and Marketing. This information is provided for general education only. Individuals should consult a qualified health care provider for professional medical advice, diagnosis and treatment of a medical or health condition. 2017 [place] [employer] See more at: [email or web address] [email or web address] Assessment & Plan (12/26/2017 10:07 PM FIELD INVESTIGATOR): Patient with psoriatic arthritis present for scheduled [...] orders. Assessment & Plan (02/08/2017 11:15 AM FIELD INVESTIGATOR): Psoriatic arthritis (clinically confirmed by ultrasound exam). [...] 10/06/2016 Assessment & Plan (02/13/2019 12:34 PM FIELD INVESTIGATOR): Recommend return to sleep center to be [...] 02/13/2019 Assessment & Plan (02/13/2019 12:32 PM FIELD INVESTIGATOR): An optimal BMI (body mass index) is between 20 and 25. Encourage weight loss. Each pound of weight lost unloads 3-4 pounds per square inch pressure from weight bearing joints. Diet and exercise are the keys to weight management. Assessment & Plan (11/20/2018 4:48 AM CDT): As above Psoriatic arthritis 10/06/2016 11/21/19 19 Assessment & Plan (12/22/2016 12:08 PM FIELD INVESTIGATOR): Reviewed with patient radiographic findings of osteoarthritis [...] Nick Gayle MD and reviewed by the [employer] [employer] Committee on Communications and MarketingThis patient fact sheet is provided for general education only. Individuals should consult a qualified health care provider for professional medical advice, diagnosis and treatment of a medical or health condition. 2017 [place] [employer] - See more at: [...] 02/13/2019 Assessment & Plan (02/13/2019 12:29 PM FIELD INVESTIGATOR): An optimal BMI (body mass index) is [...] management. Assessment & Plan (03/23/2017 5:19 PM FIELD INVESTIGATOR): An optimal BMI (body mass index) is between 20 and 25. Encourage weight loss. Each pound of weight lost unloads 3-4 pounds per square inch pressure from weight bearing joints. Diet and exercise are the keys to weight management. Assessment & Plan (02/08/2017 11:17 AM FIELD INVESTIGATOR): An optimal BMI (body mass index) is between 20 and 25. Encourage weight loss. Each pound of weight lost unloads 3-4 pounds per square inch pressure from weight bearing joints. Diet and exercise are the keys to weight management. Assessment & Plan (12/22/2016 12:07 PM FIELD INVESTIGATOR): Reinforced importance of weight loss. 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 Male 9:08 AM FIELD INVESTIGATOR Gender Identity Male 09/23/2020 7:50 PM CDT [...] AM CDT) Hep A IgM Non-Reactive Non-Reactive [facility] Hep B core IgM Non-Reactive Non-Reactive [facility] Hep C Ab Non-Reactive Non-Reactive [facility] HepBsAg Nonreactive Nonreactive [facility] Blood specimen (specimen) 06/07/2018 10:43 AM CDT 06/07/2018 2:02 PM CDT Narrative [facility] - 06/07/2018 3:19 PM CDT us Lorenzo Coyle MD LAB MICROBIOLOGY - GENERA L ORDERABLES Final Result [facility] [address] Department [place] [address] from Last 3 Months or Most Recently Relevant to Health Maintenance Insurance [facility] Care Teams Master Fisher Relationship Specialty Start Date End Date Alex Chavez MD PCP - General Family Medicine 10/06/16 Lorenzo Coyle MD [address] [facility] [address] [place] [address] Consulting Physician Rheumatology 05/16/19
--- OUTSIDE RECORDS SUMMARY | 2024-10-02 01:28 | XMS_ITS | Clinical Summary ---
Author Organization [facility] Address [address] [place] [address] Care Team Providers Care Rent Collector Name Role Phone Alex Chavez MD Primary Care Provider [phone] Source Comments [facility],non-owned Affiliates and Associated Physician Practices is amultiple site organization consisting of ambulatory clinics and hospital sitesin [place], [place], [place] and [place]. This disclosure is being madepursuant to the Care Everywhere program and may not contain all information available regarding this patient. Last updated 17.[facility] Allergies No known active allergies Medications * [...] by mouth 2 times daily. 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 Gender Identity Not on file Sexual Orientation [...] this topic Medical Devices Implanted Type Area Ice Cream Scooper Device Identifier Shelf Expiration Date Model / Serial / Lot Screw Implanted:Qty: 2 on 04/25/2012 by Remington Ortiz MD at [facility] N/A: Back [employer] [id number] / / Screws Implanted:Qty: 4 on 04/25/2012 by Remington Ortiz MD at [facility] Neck [employer] [id number] / / Screw Implanted:Qty: 1 on 04/25/2012 at [facility] [employer] [id number] / / Screws Implanted:Qty: 2 on 04/25/2012 by Remington Ortiz MD at [facility] Neck [employer] [id number] / / Praneeth Implanted:Qty: 1 on 04/25/2012 by Remington Ortiz MD at [facility] N/A: Neck [employer] [id number] / / Set Screws Implanted:Qty: 10 on 04/25/2012 by Remington Ortiz MD at [facility] N/A: Neck [id number] / / Putty Brady-3 Dbm 10cc Implanted:Qty: 1 on 04/25/2012 at [facility] Neck [employer] 01/14/2013 [id number] / / [id number] Description:in or record to add lot#, TB Peek Implanted:Qty: 1 on 04/25/2012 by Remington Ortiz MD at [facility] N/A: Neck [employer] [id number] / / [id number] Peek Implanted:Qty: 1 on 04/25/2012 at [facility] Neck [employer] [id number] / / [id number] Peek Implanted:Qty: 1 on 04/25/2012 by Remington Ortiz MD at [facility] [employer] [id number] / / [id number] Screws Implanted:Qty: 8 on 04/25/2012 by Remington Ortiz MD at [facility] [employer] [id number] / / Plate Implanted:Qty: 1 on 04/25/2012 by Remington Ortiz MD at [facility] [employer] [id number] 06 / / Screws Implanted:Qty: 2 on 04/25/2012 at [facility] [employer] [id number]. [id number] / / Screws Implanted:Qty: 1 on 04/25/2012 by Remington Ortiz MD at [facility] [id number] / / Insurance * Guarantor: Pablo Sterling Account Type Relation to Patient Date of Phone Billing Address Personal/Family Self 1960 [phone] (Work) [address] [place], [place] [id number] [employer] [facility] [phone] (Work) [address] [place] [phone] [facility] Advance Directives * FULL RESUSCITATION (Latest Code Status on File) Date Activated Date Inactivated Comments 04/26/2012 12:34 AM 04/28/2012 2:39 PM * FULL RESUSCITATION Date Activated Date Inactivated Comments 04/25/2012 10:37 PM 04/26/2012 12:34 AM Care Teams Rent Collector Relationship Specialty Start Date End Date Alex Chavez MD [address] [address] PCP - General Family Medicine 04/25/12
--- OUTSIDE RECORDS SUMMARY | 2024-10-02 01:28 | XMS_ITS | Encounter Summary ---
Author Organization [facility] Address [address] [place] [address] Care Team Providers Care Skin Care Instructor Name Role Phone Unknown, Provider Primary Care Provider Alex Christie MD Primary Care Provider [phone] Encounter Details Date Type Department Care Team (Late st Contact Info) Description 03/22/2012 [facility] Visit [place] [address] [place] [address] Social History Tobacco Use Types Packs/Day Years Used Date Smoking Tobacco: Never Smokeless Tobacco: Never Alcohol Use Standard Drinks/Week Comments Yes 0 (1 standard drink = 0.6 oz pur e alcohol) rarely Sex and Gender Information Value Date Recorded Sex Assigned at Not on file 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
[2024-10-02 10:01] VITALS: BP 125/81; PULSE 65; RESP 18; TEMP 36.1; O2SAT 98
[2024-10-02] MEDS: LACTATED RINGERS 1,000 ML 150 ML IV CONT (10:07)
--- NOTE | 2024-10-02 10:13 | WPDANESEPPF ---
Anes - Initial Pre Proc Eval Procedure: Operation Date: 10/02/24 14:00 Proposed Procedures p EGD & Screening Colonoscopy - Santiago Saleem DO Date/Time: 10/02/24 10:13 Surgeon: Santiago Saleem DO Pre Op Diagnosis: Screening malignant neoplasm of colon & GERD/HH Patient Data Age: 63 Gender: M Height: 1.8 m Weight: 105.8 kg Last Vital Signs Temp 36.1 C L 10/02/24 10:01 Pulse 65 10/02/24 10:01 Resp 18 10/02/24 10:01 BP 125/81 10/02/24 10:01 Pulse Ox 98 10/02/24 10:01 O2 Del Method Room Air 10/02/24 10:01 Allergies Allergy/AdvReac Type Severity Reaction Status Date / Time No Known Allergies Allergy Verified 10/02/24 09:58 Home Medications ?Medication ?Instructions ?Recorded ?Confirmed ?Type atenolol 25 mg tablet 25 mg PO DAILY 09/07/24 10/02/24 History dextroamphetamine sulfate 20 mg 20 mg PO DAILY 09/07/24 10/02/24 History tablet lisdexamfetamine 50 mg capsule 50 mg PO QAM 09/07/24 10/02/24 History (Vyvanse) meloxicam 15 mg tablet 15 mg PO DAILY 09/07/24 10/02/24 History pantoprazole 40 mg granules 40 mg PO DAILY 09/07/24 10/02/24 History delayed-release for susp in packet levomefolate 7.5 mg-algal oil 1 cap PO DAILY 09/19/24 10/02/24 History 90.314 mg capsule vitamin B complex (Balanced B-50 1 tablet PO DAILY 09/19/24 10/02/24 History tablet) cholecalciferol (vitamin D3) 50 2,000 unit PO DAILY 09/20/24 10/02/24 History mcg (2,000 unit) capsule (Vitamin D3) methotrexate sodium 2.5 mg tablet 25 mg PO WEEKLY 09/20/24 10/02/24 History pantoprazole 40 mg tablet,delayed 40 mg PO DAILY 09/20/24 10/02/24 History release hydrocodone 5 mg-acetaminophen 325 1 tablet PO Q4H PRN pain #10 tabs 09/25/24 10/02/24 Rx mg tablet Patient hx anesthesia problems: none Family hx anesthesia problems: none Results Review: All pre-operative results and documents have been reviewed as part of the pre-operative evaluation. [facility] Past Medical History Medical History Seizures Irritable bowel syndrome (IBS) Hypertension Kidney stones Psoriatic arthritis Tibial fracture 1970 History of spinal fracture C4 through C6 1977 football injury Gastroesophageal reflux disease Migraine headache Erectile dysfunction Anxiety and depression Obstructive sleep apnea Surgical History Surgical History History of surgery on lower extremity Left tibial osteoid osteopathic removal 1975 History of extracorporeal shockwave lithotripsy (ESWL) 2019 Hx of colonoscopy 2011 Hx of appendectomy 2004 Hx of spinal fusion C4-T2 2012 Social History Social History Smoking status: Never smoker Alcohol intake: current Substance use: never Substance use type: does not use Do You Feel Safe in your Home?: Yes Lack of Transportation: No Lack of Food: Never True Current Housing: I Have Housing Concerned About Future Housing: No Difficulty Paying Gas/Electric Bills: No Difficulty Paying for Meds: No Currently Unemployed: No Education: Associate Degree Difficulty w/ Childcare or Family Care: No Living arrangements: with family Spiritual care concerns: No Anes - Eval Final PreProcedure Day of Procedure 10/02/24 10:13 Patient weight: obese Heart: regular rate and rhythm Lungs: clear to auscultation Airway: Mallampati scale class II Neurological: alert and oriented Last oral intake: >/= 8 hours ASA classification: III Emergent: no Anesthetic plan: proceed Anesthesia type and monitoring: general GIVS and standard monitoring Results Review: All pre-operative results and documents have been reviewed as part of the pre-operative evaluation. Informed Consent: The patient's anesthetic plan and its attendant risks and benefits were discussed with the patient/family/POA. Questions were solicited and answers provided to the satisfaction of the patient/family/POA.
--- NOTE | 2024-10-02 10:17 | WPDHPUPDATE1 ---
History and Physical Update Update Date/Time: 10/02/24 10:17 History and Physical has been reviewed, including an updated exam of the patient. There are NO changes in the patient's condition. Risks, benefits, and alternatives have been discussed and questions answered. Patient agrees to proceed with procedure.
--- NOTE | 2024-10-02 10:44 | SUR.OPER ---
egd ended at 1038 and colonoscopy started at 1044
--- NOTE | 2024-10-02 11:01 | S_PTH ---
PATIENT: Pablo Sterling LOC: [facility] U#:[id number] AGE/SX: 63/M ROOM: RE10/02/[address]: Santiago Saleem DO : 1960 BED: DIS: 10/02/2024 SPEC #: [id number] RECD: 10/02/24 11:18 STATUS: MIGUELANGEL BAINS #: [id number] ZACHARY: 10/02/24 11:[address]: Santiago Saleem DEPT: [facility] Surgical RECD BY: Cande Powell ENTERED: 10/02/24 11:18 SP TYPE: Surgical OTHR DR: Kathy,Alex CAMPA Tissues: A - Rectal Polyp B - Colon Polypectomy Procedures: Hematoxylin and Eosin Stain Gross and Microscopic Level 4
[2024-10-02 11:04] VITALS: BP 113/69; PULSE 66; RESP 21; O2SAT 98
[2024-10-02 11:14] VITALS: BP 127/70; PULSE 67; RESP 19; O2SAT 99
[2024-10-02 11:24] VITALS: BP 132/84; PULSE 63; RESP 20; O2SAT 100
== END 2024-10-02 11:40 | disposition home or self-care (01) ==
PROVIDERS: PCP Family Medicine; Visit Provider Surgery
PROC: 0DJ08ZZ Inspection of Upper Intestinal Tract, Via Natural or Artificial Opening Endoscopic (ICD-10-PCS; CPT 45378; principal; 2024-10-02 14:00)
DX: Z12.11 Encounter for screening for malignant neoplasm of colon (principal); K63.5 Polyp of colon; K62.1 Rectal polyp; K57.30 Diverticulosis of large intestine without perforation or abscess without bleeding; K21.9 Gastro-esophageal reflux disease without esophagitis; K44.9 Diaphragmatic hernia without obstruction or gangrene; I10 Essential (primary) hypertension; K58.9 Irritable bowel syndrome, unspecified; N52.9 Male erectile dysfunction, unspecified; F41.8 Other specified anxiety disorders; G47.33 Obstructive sleep apnea (adult) (pediatric); R56.9 Unspecified convulsions; L40.50 Arthropathic psoriasis, unspecified; E66.9 Obesity, unspecified; Z68.32 Body mass index [BMI] 32.0-32.9, adult; Z79.891 Long term (current) use of opiate analgesic; Z98.890 Other specified postprocedural states; Z98.1 Arthrodesis status; Z87.442 Personal history of urinary calculi
CPT/HCPCS: 43235; 45380; 88305; J2003; J2704; J7120